=== PATIENT | female | born 1945 | race Caucasian/White ===

== ENCOUNTER 2022-05-23 12:57 | Inpatient (IN) | payer OTHER ==
--- OUTSIDE RECORDS SUMMARY | 2022-05-23 13:00 | XMS REPORT | Continuity of Care Document ---
:1945 Author Organization [facility] t Address [address] [place] [address] Dr. Cruz. [address] [place] [address] Care Team Providers Name Role Phone SYSTEM, PROVIDER NOT IN Primary Care Physician Unavailable FRIDA ZAMORA Attending Clinician Unavailable David CORDOVA, Frida Jacobs Attending Clinician [phone] Virtual, Surgeon Attending Clinician Unavailable FRIDA ZAMORA Attending Clinician Unavailable Kenyatta De Leon Attending Clinician Unavailable Paige CORDOVA, Zhen Salcedo Attending Clinician JOY KAUR Attending Clinician Unavailable Doctor Unassigned, [place] Attending Clinician Unavailable Lab, Adc Fam Pob I Attending Clinician Unavailable Patti CORDOVA, Nanette Anderson Attending Clinician FRIDA ZAMORA Admitting Clinician Unavailable Payers Payer Name Policy Type Policy Number Effective Date Expiration Date Elfego moreira [employer] [id number] 2021 00:00:00 [facility] [id number] [facility] Problems This patient has no known problems. Allergies, Adverse Reactions, Alerts Allergy Allergy Status Severity Reaction(s) Onset Inactive Treating Comm ents Source Name Type Date Date Clinician NO KNOWN Drug Active [facility] ALLERG Class ity of S [facility] NO KNOWN Allergy Active [facility] Social History Social Habit Start Date Stop Date Quantity Comments Source Exposure to 2022-05-12 2022-05-22 Not sure [facility] SARS-CoV-2 (event) 00:00:00 07:17:00 [facility] Sex Assigned At [birth year] [facility] sushilas 00:00:00 00:00:00 [facility] Smoking Status Start Date Stop Date Source Tobacco smoking consumption unknown [facility] Medications Ordered Filled Start Stop Current Ordering Indication Dosage Frequency Signature Comments Components Source Medication Medication Date Date Medication? Clinician (SIG) Name Name rivaroxaban 2021-06 Yes Take by [facility] (XARELTO) [facility]-05 [facility] 20 mg 11:21: daily with [facility] l tablet 05 dinner. Center metoprolol 2021-06 Yes 100mg QD Take [address] succinate 2-05 mg by [facility] (Toprol XL) 11:21: mouth Medic al 100 MG 24 05 daily. Center hr tablet Vital Signs Vital Name Observation Time Observation Value Comments Source HEIGHT 2022-05-22 07:20:00 165.1 cm WEIGHT 2022-05-22 07:20:00 69.854 kg HEIGHT 2022-05-22 07:20:00 165.1 cm WEIGHT 2022-05-22 07:20:00 69.854 kg HEIGHT 2022-05-22 07:20:00 165.1 cm WEIGHT 2022-05-22 07:20:00 69.854 kg Systolic blood 2022-05-22 10:36:00 123 mm[Hg] [facility] Diastolic blood 2022-05-22 10:36:00 73 mm[Hg] [facility] Heart rate 2022-05-22 10:36:00 111 /min [facility] Body temperature 2022-05-22 10:36:00 36.06 [facility] Respiratory rate 2022-05-22 10:36:00 16 /min [facility] Oxygen saturation in 2022-05-22 10:36:00 97 /min [facility] Arterial blood by Medical Ce nter Pulse oximetry Body height 2022-05-22 07:20:00 165.1 cm [facility] Body weight 2022-05-22 07:20:00 69.854 kg [facility] BMI 2022-05-22 07:20:00 25.63 kg/m2 [facility] Procedures Procedure Date / Time Performing Clinician Source Performed CT 2022-05-22 09:52:[address] [facility] BIOPSY/ASPIRATION/INJECTI [facility] Center ON CBC W/PLT COUNT & AUTO 2022-05-22 07:43:00 Bita Holt [facility] PROTHROMBIN TIME/INR 2022-05-22 07:43[facility]00 [facility] CBC W/PLT COUNT & AUTO 2022-05-22 07:43:00 [facility] (CELLAVISION MANUAL DIFF) 2022-05-22 07:43:00 [facility] AMB REF TO INTERVENTIONAL 2022-04-07 09:10:19 [facility] EXTERNAL Medicine CANCER ANTIGEN 19-9 2022-03-16 10:18:00 [facility] AMB REF TO GENETICS 2022-03-16 09:53:11 [facility] COUNSELOR (CANCER) Medicine SURGICAL PATHOLOGY 2022-03-06 21:56:00 Zhen Gibson [facility] REQUEST CANCER ANTIGEN 19-9 2022-02-24 15:42:37 [facility] ASSIGNMENT OF BENEFITS 2020-05-05 15:07:39 Doctor Unassigned, Un [facility] Plan of Care Planned Activity Planned Date Details Comments Source Future Scheduled 2022-04-20 HEPATITIS B VACCINES [facility] Test 10:25:30 (1 of 3 - 3-dose series) [code = HEPATITIS B VACCINES (1 of 3 - 3-dose series)] Future Scheduled 2022-04-20 SHINGLES VACCINES (1 [facility] Test 10:25:30 of 2) [code = SHINGLES VACCINES (1 of 2)] Future Scheduled 2022-04-20 65+ [facility]30 VACCINE (1 - PCV) [code = 65+ PNEUMOCOCCAL VACCINE (1 - PCV)] Future Scheduled 2022-04-20 COVID-19 VACCINE (2 - Me [facility] Test 10:25:30 Moderna series) [code = COVID-19 VACCINE (2 - Moderna series)] Future Scheduled 2022-04-20 INFLUENZA VACCINE Method [facility] Test 10:25:30 [code = INFLUENZA VACCINE] Future Scheduled 2022-04-20 INFLUENZA VACCINE [facility] Test 10:25:30 [code = INFLUENZA VACCINE] Future Scheduled 2022-04-20 HEPATITIS B VACCINES [facility] Test 10:25:30 (1 of 3 - 3-dose series) [code = HEPATITIS B VACCINES (1 of 3 - 3-dose series)] Future Scheduled 2022-04-20 SHINGLES VACCINES (1 Met [facility] Test 10:25:30 of 2) [code = SHINGLES VACCINES (1 of 2)] Future Scheduled 2022-04-20 65+ PNEUMOCOCCAL [facility] Hospital Test 10:25:30 VACCINE (1 - PCV) [code = 65+ PNEUMOCOCCAL VACCINE (1 - PCV)] Future Scheduled 2022-04-20 COVID-19 VACCINE (2 - Me [facility] Test 10:25:30 Moderna series) [code = COVID-19 VACCINE (2 - Moderna series)] Future Scheduled 2022-04-12 HEPATITIS B VACCINES Met [facility] Test 15:39:08 (1 of 3 - 3-dose series) [code = HEPATITIS B VACCINES (1 of 3 - 3-dose series)] Future Scheduled 2022-04-12 SHINGLES VACCINES (1 Met [facility] Test 15:39:08 of 2) [code = SHINGLES VACCINES (1 of 2)] Future Scheduled 2022-04-12 65+ PNEUMOCOCCAL [facility] Hospital Test 15:39:08 VACCINE (1 - PCV) [code = 65+ PNEUMOCOCCAL VACCINE (1 - PCV)] Future Scheduled 2022-04-12 COVID-19 VACCINE (2 - Me [facility] Test 15:39:08 Moderna series) [code = COVID-19 VACCINE (2 - Moderna series)] Future Scheduled 2022-04-12 INFLUENZA VACCINE Method [facility] Test 15:39:08 [code = INFLUENZA VACCINE] Future Scheduled 2022-03-30 INFLUENZA VACCINE Method [facility] Test 10:58:22 [code = INFLUENZA VACCINE] Future Scheduled 2022-03-30 HEPATITIS B VACCINES [facility] Test 10:58:22 (1 of 3 - 3-dose series) [code = HEPATITIS B VACCINES (1 of 3 - 3-dose series)] Future Scheduled 2022-03-30 SHINGLES VACCINES (1 Met [facility] Test 10:58:22 of 2) [code = SHINGLES VACCINES (1 of 2)] Future Scheduled 2022-03-30 65+ PNEUMOCOCCAL [facility] Hospital Test 10:58:22 VACCINE (1 - PCV) [code = 65+ PNEUMOCOCCAL VACCINE (1 - PCV)] Future Scheduled 2022-03-30 COVID-19 [facility]ACC[facility] 10:58:22 Moderna series) [code = COVID-19 VACCINE (2 - Moderna series)] Future Scheduled 2022-02-16 INFLUENZA VACCINE (#1[facility] 00:00[facility]00 [code = INFLUENZA Medical Ce nter VACCINE (#1)] Future Scheduled 2022-02-16 INFLUENZA VACCINE (#1) [facility] 00:00:00 [code = INFLUENZA Medical Ce nter VACCINE (#1)] Future Scheduled 2021-06-[address] [facility] Test 00:00:00 (12+) [code = Medical Center DEPRESSION SCREENING (12+)] Future Scheduled 2021-06-18 FALLS RISK SCREENING [facility] Test 00:00:00 [code = FALLS RISK Medical C enter SCREENING] Future Scheduled 2021-06-18 Medicare IPPE (WELCOME [facility] Test 00:00:00 TO MEDICARE) [code = Medical Center Medicare IPPE (WELCOME TO MEDICARE)] Future Scheduled 2021-06-[address] [facility] Test 00:00:00 (12+) [code = Medical Center DEPRESSION SCREENING (12+)] Future Scheduled 2021-06-18 FALLS RISK SCREENING [facility] Test 00:00:00 [code = FALLS RISK Medical C enter SCREENING] Future Scheduled 2021-06-18 Medicare IPPE (WELCOME [facility] Test 00:00:00 TO MEDICARE) [code = Medical Center Medicare IPPE (WELCOME TO MEDICARE)] Future Scheduled 2009 PNEUMOCOCCAL 65+ [facility] Test 00:00:00 (1 - PCV) [code = Medical Ce nter PNEUMOCOCCAL 65+ YRS (1 - PCV)] Future Scheduled 2009 PNEUMOCOCCAL 65+ Y[facility] Test 00:00:00 (1 - PCV) [code = Medical Ce nter PNEUMOCOCCAL 65+ YRS (1 - PCV)] Future Scheduled 1994 SHINGLES VACCINES ([address] [facility] Test 00:00:00 of 2) [code = SHINGLES Medic al Center VACCINES (1 of 2)] Future Scheduled 1994 SHINGLES VACCINES ([address] [facility] Test 00:00:00 of 2) [code = SHINGLES Medic al Center VACCINES (1 of 2)] Future Scheduled 1963 DTAP/TDAP/TD VACCINES [facility] Test 00:00:00 (1 - Tdap) [code = Medical C enter DTAP/TDAP/TD VACCINES (1 - Tdap)] Future Scheduled 1963 DTAP/TDAP/TD VACCINES [facility] Test 00:00:00 (1 - Tdap) [code = Medical C enter DTAP/TDAP/TD VACCINES (1 - Tdap)] Future Scheduled 1962 HEPATITIS C SCREENING [facility] 00:00:00 [code = HEPATITIS C Medical Center SCREENING] Future Scheduled 1962 HEPATITIS C SCREENING [facility] 00:00:00 [code = HEPATITIS C Medical Center SCREENING] Future Scheduled [address] [facility] Test 00:00:00 Counseling and Medical Cente r Screening (12+) [code = Tobacco Cessation Counseling and Screening (12+)] Future Scheduled 1945 COVID-19 VACCINE (#1) [facility] Test 00:00:00 [code = COVID-[address] VACCINE (#1)] Future Scheduled 1945 COVID-19 VACCINE (#1) [facility] 00:00:00 [code = COVID-[address] VACCINE (#1)] Future Scheduled 1945 DXA SCAN [code = DXA [facility] Test 00:00:00 SCAN] Medical Center Future Scheduled 1944 DXA SCAN [code = DXA [facility] Test 00:00:00 SCAN] Medical Center Encounters Start End Encounter Admission Attending Care Care Encounter Source Date/Time Date/Time Type Type Clinicians Facility Department ID 2022-05-22 2022-05-22 Outpatient YOLA ZAMORA [facility] Surgery [id number] [facility] 06:07:00 11:19:00 FRIDA 2022-05-22 2022-05-22 [facility] David, [facility] [id number] 06:07:00 11:19:00 Encounter [facility] 2022-05-22 2022-05-22 Outpatient YOLA ZAMORA [facility] SLE [id number] [facility] 09:01:11 09:01:11 [facility] 2022-05-22 2022-05-[address] [facility] [id number] 08:00:00 08:00:00 Encounter [facility] 2022-05-22 2022-05-22 Surgery Virtual, [facility] [id number] 07:30:00 08:00:00 Surgeon [facility] 2022-05-22 2022-05-22 Travel [facility] [id number] [facility] 00:[facility] 00[facility]00[facility]00 [facility] 2022-05-18 2022-05-18 Outpatient YOLA ZAMORA [facility] SLE [id number] SLE 00:00:00 00:00:00 [facility] 2022-04-12 2022-04-12 Outside [facility], [facility] [id number] 00:00:00 00:00:00 Orders [facility] 2022-04-12 2022-04-12 Outside [facility] [id number] 00:00:00 00:00:00 Orders [facility] 2022-04-06 2022-04-06 Outpatient DAVID [facility] [id number] [facility] 11:11:32 12:07:32 FRIDA garland of Medicin e 2022-04-27 2022-03-30 [facility] [id number] SLE 18:24:55 11:57:00 [facility] 2022-03-30 2022-03-[address] [facility] [id number] 08:00:00 11:57:00 Encounter [facility] 2022-03-30 2022-03-30 Hospital David, [facility] [id number] 07:00:00 07:00:00 Encounter [facility] 2022-03-16 2022-03-16 Outpatient ALETHEAYAYO [facility] [id number] [facility] 08:09:28 09:35:47 FRIDA Krause e of Medicin e 2022-03-16 2022-03-16 Orders [facility] [id number] 00:00:00 00:00:00 Only [facility] 2022-03-16 2022-03-16 Orders [facility] [id number] [facility] 00:00:00 00:00:00 Only [facility] 2022-03-06 2022-03-06 Lab Paige, 1.2.840.1 [id number] Methodi 16:50:00 16:55:[address] 3.430.2.7 Hospit a .3.608436 l .8 2022-03-06 2022-03-06 Lab Paige, 1.2.840.1 [id number] Methodi 16:50:00 16:55:[address] Z[address] 3.430.2.7 Hospit a .3.895917 l .8 2022-02-24 2022-02-24 Outpatient NATASHA [facility] [id number] [facility] 14:15:21 15:35:35 JOY garland of Medicin e 2020-05-10 2020-05-10 Letter Doctor FORTE 1.2.840.114 [id number] Univers 00:00:00 00:00:00 (Out) Unassigned, JAMES 350.1.13.10 ity of [place] [facility] 4.2.7.2.686 Franky as [phone] [place] [id number] [place] 2020-05-05 2020-05-05 Laboratory Lab, Adc Fam Pob I [facility] 1.2. 840.114 [id number] Univers 09:06:24 09:26:24 Only Patti, [facility] 350.1.13.1 0 ity of [place] 4.2.7.2.686 Franky as Professio [phone] [place] [facility] [address] 2020-05-05 2020-05-05 Outpatient R [facility] [id number] Univers 09:20:00 09:20:[address] [facility] 2020-05-05 2020-05-05 Orders Doctor REANNA 1.2.840.114 [id number] Univers 00:00:00 00:00:00 Only Unassigned, JAMES 350.1.13.10 ity of [place] [facility] 4.2.7.2.686 Franky as [phone] [address] Results Test Description Test Time Test Comments Results Result Comments Source CBC W/PLT COUNT & AUTO DIFFERENTIAL 2022-05-22 11:34:24 Test Item Value Reference Range Interpretation Comme nts WHITE BLOOD CELL COUNT (BEAKER) (test code = 775) 9.5 K/ L 3.5- 10.5 RED BLOOD CELL COUNT (BEAKER) (test code = 761) 4.26 M/ L 3.93-5 .22 HEMOGLOBIN (BEAKER) (test code = 410) 13.2 GM/DL 11.2-15.7 HEMATOCRIT (BEAKER) (test code = 411) 39.7 % 34.1-44.9 MEAN CORPUSCULAR VOLUME (BEAKER) (test code = 753) 93 fL 79- 95 MEAN CORPUSCULAR HEMOGLOBIN (BEAKER) (test code = 751) 31.0 pg 25.6-32.2 MEAN CORPUSCULAR HEMOGLOBIN CONC (BEAKER) (test code = 752) 33.2 GM/DL 32.2-35.5 RED CELL DISTRIBUTION WIDTH (BEAKER) (test code = 412) 18.3 % 11.7-14.4 H PLATELET COUNT (BEAKER) (test code = 756) 211 K/CU MM 150-450 MEAN PLATELET VOLUME (BEAKER) (test code = 754) 12.8 fL 9.4-12 .3 H NUCLEATED RED BLOOD CELLS (BEAKER) (test code = 413) 0 /100 WBC 0 -0 (CELLAVISION MANUAL DIFF)2022-05-22 11:34:24 Test Item Value Reference Range Interpretation Comments NEUTROPHILS - REL 80 % (CELLAVISION)(BEAKER) (test code = 2816) LYMPHOCYTES - REL 8 % (CELLAVISION)(BEAKER) (test code = 2817) MONOCYTES - REL 7 % (CELLAVISION)(BEAKER) (test code = 2818) EOSINOPHILS - REL 1 % (CELLAVISION)(BEAKER) (test code = 2819) BASOPHILS - REL 1 % (CELLAVISION)(BEAKER) (test code = 2820) BANDS - REL (CELLAVISION)(BEAKER) 1 % 0-10 (test code = 2826) ATYPICAL LYMPHOCYTES - REL 2 % 0-0 H (CELLAVISION)(BEAKER) (test code = 2829) NEUTROPHILS - ABS 7.60 K/ul 1.56-6.13 H (CELLAVISION)(BEAKER) (test code = 2830) LYMPHOCYTES - ABS 0.76 K/ul 1.18-3.74 L (CELLAVISION)(BEAKER) (test code = 2831) MONOCYTES - ABS 0.67 K/uL 0.24-0.36 H (CELLAVISION)(BEAKER) (test code = 2832) EOSINOPHILS - ABS 0.10 K/uL 0.04-0.36 (CELLAVISION)(BEAKER) (test code = 2834) BASOPHILS - ABS 0.10 K/uL 0.01-0.08 H (CELLAVISION)(BEAKER) (test code = 2835) BANDS - ABS (CELLAVISION)(BEAKER) 0.10 K/uL 0.00-0.80 (test code = 2840) ATYPICAL LYMPHOCYTES - ABS 0.19 K/uL 0.00-0.00 H (CELLAVISION)(BEAKER) (test code = 2858) TOTAL COUNTED (BEAKER) (test code = 100 1351) WBC MORPHOLOGY (BEAKER) (test code Normal = 487) PLT MORPHOLOGY (BEAKER) (test code Normal = 486) ANISOCYTOSIS (BEAKER) (test code = 1+ few 961) MACROCYTES (BEAKER) (test code = 1+ few 964) POIKILOCYTES (BEAKER) (test code = 1+ few 966) ARTIFACT (CELLAVISION)(BEAKER) Present (test code = 3432) PLATELET CONCENTRATION Adequate (CELLAVISION)(BEAKER) (test code = 3438) Sales Account Manager ID - Carolina OverholtUser comments: Slide comments:CT, BIOPSY, BONE 2022-05-22 10:53:00APPROVED PER DR. Smith for Exam:->MALIGNANT NEOPLASM OF BODY OF PANCREAS [facility] : 1945 Sex: FFINAL REPORT CT guided core biopsy of lesion in T12 vertebral body History: MALIGNANT NEOPLASM OF BODY OF PANCREAS Modality: CT, CT fluoroscopy Anesthesia: 1% lidocaine local Approach: Posterior percutaneous Consent: The risks, benefits, and alternatives to the procedure were discussedwith the patient. The patient expressed understanding and informed written consent was obtained. Time out: A pre-procedure time out was performed in order to confirm the appropriate site of the procedure. Sedation: Moderate sedation was administered, including a total of 1.0 mg of Versed and 75 mcg offentanyl. Continuous monitoring was performed by the operating physician and radiology nursing throughout the procedure. Duration of conscious sedation: 25 minutes. Technique: This exam was performed according to our departmental dose optimization program which includes automated exposure control, adjustment of the mA and/or kV according to patient's size and/or use of iterative reconstructive technique. The patient was placed prone in the CT scanner. A hepatic lesion in the T12 vertebral body was localized using CT and CT fluoroscopy. After the usual sterile preparation and application of local ane sthesia, a Bonopty needle was advanced into T12 using CT guidance. Two passes were made, yielding two cores Disposition: The patient tolerated the procedure well, without immediate complications. The patient left CT in stable condition. Impression: 1. Technically successful CT guided core biopsy of lesion in T12 vertebral body. Signed: Bita Holt Verified Date/Time: 05/22/2022 10:53:54 ReadingLocation: [facility] B1 C013X Ortho Consult Reading Room PROTHROMBIN TIME/[id number] 08:05:01 Test Item Value Reference Range Interpretation Comments PROTIME (BEAKER) 15.9 seconds 11.9-14.2 H (test code = 759) INR (BEAKER) (test 1.30 See_Comment [Automat ed message] code = 370) The system [employer] generated this result transmitted ref erence range: <=5.90. The reference range was not used to int erpret this result as normal/abnormal . RECOMMENDED COUMADIN/WARFARIN INR THERAPY RANGESSTANDARD DOSE: 2.0 - 3.0 Includes: PROPHYLAXIS for venous thrombosis, systemic embolization; TREATMENT for venous thrombosis and/or pulmonary embolus.HIGH RISK: Target INR is 2.5-3.5 for patients with mechanical heart valves.MRI ABDOMEN /[id number] 13:15:34 [facility] JUSTINE SHER[facility] : 1945 Sex: FCLINICAL INDIC ATION: C25.1, Malignant neoplasm of body of pancreas. R16.0, Hepatomegaly, not elsewhere classified.MODALITY: [employer] 3T MRITECHNIQUE: Parallel imaging is accomplished using T2, diffusion, in-phase, [id number], and breath-holding sequences. IV contrast (Dotarem), 14 ml is administered. Dynamic post-contrast fat saturation breath-hold imaging is then performed.IMPRESSION:1. 4.4 X 3.1 X 3.3 cm heterogeneous and mildly hypo- enhancing pancreatic body/tail mass, likely representing the patient's known pancreatic carcinoma. Vascular involvement is noted, detailed below.2. Enhancing, 2.2 cm lesion at T12 corresponds to the lesion described on CT chest performed the same day. This is suspicious formetastatic disease and can be correlated with nuclear medicine bone scan.3. Areas of heterogeneous hepatic enhancement with suggestion of small hepatic hemangiomas, described below. Close follow-up forstability is advised.FINDINGS:COMPARISON: None.Refer to report from CT chest performed the same datefor findings above the diaphragm.The liver is normal in size and contour. Scattered, sub-centimeter hepatic cysts are noted. A 4 mm hyperintense T2 focus in the posterior inferior right hepatic lobe onseries 6, image 17 demonstrates progressive enhancement, filling in on the delayed series without evidence of delayed washout. This may represent a small hepatic hemangioma. Additional 1.4 X 1.1 cm lesion in the posterior right hepatic lobe is best visualized on the diffusion weighted series, series 9, image 8. This demonstrates slightly decreased signal on the ADC sequence and mildly hyperintense [id number]. On the postcontrast series, this has mild progressive enhancement, filling in on the delayedseries without evidence of washout. This may also represent a hepatic hemangioma. There are wedge-shaped areas of enhancement within the periphery of the liver, best visualized on the early arterial phase of postcontrast imaging. These demonstrate no evidence of significant washout or restricted diffusion and may represent areas of transient hepatic attenuation difference (CARRIE). No evidence of biliary dilatation. Gallbladder appears unremarkable. Spleen is normal in size and contour. The stomach and duodenum appear unremarkable.Ill-defined, mildly hypo-enhancing and heterogeneous T2 mass is noted in the pancreatic body/tail. This measures 4.4 X 3.1 X 3.3 cm. The splenic artery is not well visualized and appears to be involved by the superior aspect of this mass. The splenic vein is also not clear ly visualized. The proximal superior mesenteric vein is surrounded by this mass along the anterolateral aspect, approximately 180 degrees. This is best visualized on series 6, image 20.Adrenal glands are morphologically normal. A simple left anterior mid pole renal cyst measures 1.9 cm. Hyperintense T1 foci are noted within the kidneys bilaterally. Larger of these measure 1.1 cm in the left posteriormid pole and 0.8 cm in the posterior right lower renal pole. These demonstrate mildly hypointense [id number] and no definite internal enhancement, suggesting hemorrhagic cysts. No hydronephrosis. No pathological retrocrural nor retroperitoneal lymph nodes are seen. No retroperitoneal mass is present. Ab dominal wall is intact. No evidence of ascites.No evidence of bowel mass, mural thickening or pericolic edema.Hypointense T2 lesion is noted at the superior endplate of T12, corresponding to the slightly sclerotic lesion noted on CT performed the same date. This measures 2.2 X 2.0 cm and demonstrates avid enhancement.CT THORAX [id number] 13:06:04 [facility] SHERMAN : 1945 Sex: FCLINICAL INDIC ATION: C25.1, Malignant neoplasm of body of pancreas.MODALITY: Closelyi Thar Geothermala View [address] (Iterative dose reduction technique is used).TECHNIQUE: Contrast enhanced (90 cc optiray 350) helical scans through the chest were performed.Computed Tomography Dose Index (CDTI): 5.6 mGy.IMPRESSIO N:1. Sub-centimeter left pulmonary nodules as described below; metastatic disease is not excluded.2.Mildly sclerotic osseous lesion at T12, suspicious for metastatic disease. Correlation with nuclear medicine bone scan is suggested.3. Emphysema.4. Coronary artery calcification.FINDINGS:COMPARISON: None.Examination is mildly limited secondary to patient motion artifact. Centrilobular emphysematous changes are noted bilaterally, predominating in the upper lobes. A few scattered thin-wall cysts/bulla are also demonstrated. Two left pulmonary nodules are present: 0.8 X 0.4 cm in the left lower lobe onimage 53 and 0.5 cm in the left upper lobe anteriorly on image 49. There is no pleural effusion.There is no pathologic mediastinal or hilar lymphadenopathy. Thoracic aortic and coronary artery calcification is present. No pericardial thickening or effusion.No pathologic axillary or supraclavicular lymphadenopathy.Sub- centimeter hypodensities in the right and left thyroid lobes are nonspecific.The chest wall is intact. Mildly sclerotic lesion is noted at T12, measuring 1.5 X 1.4 cm.Refer to report from MRI of the abdomen performed the same day for findings beneath the diaphragm.[facility] 436: [id number] (For official use only.)Surgical pathology [id number] 20:10:41 Test Item Value Reference Range Interpretation Comments Case number (test code = [id number]) Surgical pathology See link below for report (test code = PDF Lab Report 2255) Result status (test code This is Final Report = [id number]) [address] [id number] 20:10:41 Test Item Value Reference Range Interpretation Comments Case number (test code = [id number]) Surgical pathology See link below for report (test code = PDF Lab Report 2255) Result status (test code This is Final Report = [id number]) [address] [id number] 20:10:41 Test Item Value Reference Range Interpretation Comments Case number (test code = [id number]) Surgical pathology See link below for report (test code = PDF Lab Report 2255) Result status (test code This is Final Report = [id number]) [address] [id number] 20:10:41 Test Item Value Reference Range Interpretation Comments Case number (test code = [id number]) Surgical pathology See link below for report (test code = PDF Lab Report 2255) Result status (test code This is Final Report = [id number]) for [address]
[2022-05-23 13:57] LABS: Absolute Lymphocytes (CBC) 0.8 K/uL (0.7-4.9); Hematocrit 39.7 % (36.0-45.0); Lymphocytes % 10.7 % (15.3-44.8); MCV 93.8 fL (80-100); MPV 11.3 fL (7.6-11.3); RBC Red Blood Cell Count 4.24 M/uL (3.86-4.86)
[2022-05-23] MEDS ORDERED: NA CHLORIDE 0.9% 500 ML ONE (14:14)
[2022-05-23 14:19] LABS: Albumin 3.1 g/dL (3.4-5.0); Bilirubin Direct 0.7 mg/dL (0-0.2); Potassium 3.4 mmol/L (3.5-5.1); Protein, Total 6.3 g/dL (6.4-8.2); Troponin High Sensitivity 24.2 pg/mL (<58.9)
--- NOTE | 2022-05-23 14:56 | RAD REPORT ---
EXAM DESCRIPTION: CT - Chest For Pe Angio - 05/23/2022 2:44 pm CLINICAL HISTORY: sob COMPARISON: None. TECHNIQUE: Dynamically enhanced axial 3 mm thick images of the chest were obtained during administra tion of <100> mL Isovue 370 IV contrast. Coronal and oblique reconstruction images were generated and reviewed. Exam utilizes a protocol for optimal evaluation of pulmonary arterial tree. Maximum intensity projections 3D imaging was utilized All CT scans are performed using dose optimization technique as appropriate and may include automated exposure control or mA/KV adjustment according to patient size. FINDINGS: Mild right lower lobe pulmonary emboli A thoracic aortic aneurysm is not noted. Small bilateral pleural effusions. A pericardial effusion is not seen. Mild bilateral interstitial lung opacities IMPRESSION: Mild right lower lobe pulmonary emboli Mild CHF
--- NOTE | 2022-05-23 15:01 | RAD REPORT ---
EXAM DESCRIPTION: Ruben Single View05/23/2022 1:48 pm CLINICAL HISTORY: Shortness of breath COMPARISON: 2019 FINDINGS: Mild bilateral pulmonary opacities. Small pleural effusions. Cardiomegaly. Central venous catheter in place IMPRESSION: Mild CHF
--- NOTE | 2022-05-23 15:28 | EDPHYS ---
Physician Documentation [facility] Name: Nile Michele Age: 76 yrs Sex: Female : 1945 Arrival Date: 05/23/2022 Time: 13:00 Bed 5 Private MD: Dawson Diane T ED Physician Bulmaro Suarez HPI: 05/23 18:48 This 76 yrs old Female presents to ER via Ambulatory with complaints of Breathing kdr Difficulty. 18:48 The patient has shortness of breath at rest, with light activity. Onset: The kdr symptoms/episode began/occurred suddenly. Duration: The symptoms are continuous, Not getting any better with time and treatments. The patient's shortness of breath is aggravated by exertion, light activity, is alleviated by nothing. Associated signs and symptoms: Pertinent positives: This patient does not have any pertinent positive signs or symptoms associated with shortness of breath. non-productive cough, Pertinent negatives: non-productive cough, productive cough, diaphoresis, fever, nausea, numbness in extremities, visual changes. Severity of symptoms: At their worst the symptoms were very mild mild in the emergency department the symptoms are unchanged. The patient has not experienced similar symptoms in the past. The patient has not recently seen a physician. Patient became acutely short of breath over the weekend. At that time she was on a cruise ship. She has a history of pancreatic cancer diagnosed in February of this year. She has had 1 chemo treatment. She did not tolerate that well. While on the cruise ship, she was evaluated for possible COVID. Her test was negative at that time on Sunday. She did get a chest x-ray and was told she had fluid on her lungs and was given a diuretic. She also used CPAP between then and now has not been getting any better.. Historical: - Allergies: 13:06 No Known Allergies; jh5 - PMHx: 13:06 pancreatic ca; a fib; Hypertensive disorder; 5 - Immunization history:: Adult Immunizations up to date. - Social history:: Smoking status: Patient reports the use of cigarette tobacco products, smokes one-half pack cigarettes per day. ROS: 18:48 Constitutional: Negative for fever, chills, and weight loss, Eyes: Negative for injury, kdr pain, redness, and discharge, Neck: Negative for injury, pain, and swelling, Cardiovascular: Negative for chest pain, palpitations, and edema, Abdomen/GI: Negative for abdominal pain, nausea, vomiting, diarrhea, and constipation, Back: Negative for injury and pain, : Negative for injury, bleeding, discharge, and swelling, MS/Extremity: Negative for injury and deformity, Skin: Negative for injury, rash, and discoloration, Neuro: Negative for headache, weakness, numbness, tingling, and seizure activity. Psych: Negative for depression, anxiety, suicide ideation, homicidal ideation, and hallucinations, Allergy/Immunology: Negative for hives, rash, and allergies, Endocrine: Negative for neck swelling, polydipsia, polyuria, polyphagia, and marked weight changes, Hematologic/Lymphatic: Negative for swollen nodes, abnormal bleeding, and unusual bruising. 18:48 Respiratory: Positive for dyspnea on exertion, shortness of breath, Negative for orthopnea, pleurisy, sputum production. Exam: 18:48 Constitutional: This is a well developed, well nourished patient who is awake, alert, kdr and in no acute distress. Head/Face: Normocephalic, atraumatic. Eyes: Pupils equal round and reactive to light, extra-ocular motions intact. Lids and lashes normal. Conjunctiva and sclera are non-icteric and not injected. Cornea within normal limits. Periorbital areas with no swelling, redness, or edema. Neck: Trachea midline, no thyromegaly or masses palpated, and no cervical lymphadenopathy. Supple, full range of motion without nuchal rigidity, or vertebral point tenderness. No Meningismus. 18:48 Cardiovascular: Rate: tachycardic, Rhythm: irregularly irregular, Pulses: no pulse deficits are appreciated, Edema: is not appreciated. Vital Signs: 13:03 BP 123 / 93; Pulse 142; Resp 26; Temp 97.3; Pulse Ox 98% on R/A; Weight 68.95 kg; jh5 Height 5 ft. 5 in. (165.10 cm); Pain 0/10; 14:05 BP 139 / 102; Pulse 122; Resp 19; Pulse Ox 96% ; bp 15:45 BP 153 / 98; Pulse 134; Resp 24; Pulse Ox 98% on R/A; em6 15:51 BP 136 / 102; Pulse 128; Resp 19; Pulse Ox 100% on R/A; em6 15:59 BP 130 / 107; Pulse 119; Resp 19; Pulse Ox 96% on R/A; em6 16:30 BP 140 / 95; Pulse 115; Resp 24; Pulse Ox 97% ; bp 17:00 BP 136 / 88; Pulse 117; Resp 23; Pulse Ox 96% ; bp 18:48 BP 135 / 100; Pulse 120; Resp 22; Pulse Ox 96% on R/A; db 13:03 Body Mass Index 25.29 (68.95 kg, 165.10 cm) [facility] MDM: 15:28 Patient medically screened. kdr 18:48 Data reviewed: vital signs, nurses notes, lab test result(s), radiologic studies. kdr Counseling: I had a detailed discussion with the patient and/or guardian regarding: the historical points, exam findings, and any diagnostic results supporting the discharge/admit diagnosis, lab results, radiology results, the need for further work-up and treatment in the hospital. 05/23 13:14 Order name: Basic Metabolic Panel; Complete Time: 14:50 kdr 05/23 13:14 Order name: CBC with Diff; Complete Time: 14:09 kdr 05/23 13:14 Order name: D-Dimer; Complete Time: 14:50 kdr 05/23 13:14 Order name: LFT's; Complete Time: 14:50 kdr 05/23 13:14 Order name: NT PRO-BNP; Complete Time: 14:50 kdr 05/23 13:14 Order name: Troponin HS; Complete Time: 14:50 kdr 05/23 13:14 Order name: XRAY Chest (1 view); Complete Time: 15:05 kdr 05/23 13:14 Order name: EKG; Complete Time: 13:15 kdr 05/23 14:10 Order name: CT Chest For PE Angio; Complete Time: 15:05 kdr 05/23 15:40 Order name: SARS RAPID; Complete Time: 17:02 ss 05/23 16:17 Order name: Heart Healthy EDMS 05/23 13:14 Order name: Cardiac monitoring; Complete Time: 13:35 kdr 05/23 13:14 Order name: EKG - Nurse/Tech; Complete Time: 13:35 kdr 05/23 13:14 Order name: IV Saline Lock; Complete Time: 13:42 kdr 05/23 13:14 Order name: Labs collected and sent; Complete Time: 13:42 kdr 05/23 13:14 Order name: O2 Per Protocol; Complete Time: 13:35 kdr 05/23 13:14 Order name: O2 Sat Monitoring; Complete Time: 13:35 kdr Administered Medications: 14:14 Drug: NS 0.9% 500 ml Route: IV; Rate: bolus; Site: right antecubital; bp 15:33 Follow up: Response: No adverse reaction; IV Status: Completed infusion; IV Intake: em6 500ml 15:09 Drug: Lopressor (metoprolol) 5 mg Route: IVP; Site: right antecubital; em6 15:45 Drug: Lopressor (metoprolol) 5 mg Route: IVP; Site: right antecubital; em6 15:46 Drug: Lovenox (enoxaparin) 1 mg/kg Route: Sub-Q; Site: abdomen; em6 17:20 Follow up: Response: No adverse reaction bp 15:51 Drug: Lopressor (metoprolol) 5 mg Route: IVP; Site: right antecubital; em6 17:20 Follow up: Response: No adverse reaction bp Disposition Summary: 05/23/22 15:28 Hospitalization Ordered Hospitalization Status: Observation kdr Provider: Joe Michelle Location: Telemetry/MedSurg (Inpatient) kdr Condition: Fair kdr Problem: new kdr Symptoms: have improved kdr Bed/Room Type: Standard kdr Room Assignment: 205(05/23/22 17:22) bd Diagnosis - Shortness of breath kdr - Other pulmonary embolism without acute cor pulmonale kdr - Pancreatic cancer kdr Forms: - Medication Reconciliation Form kdr - SBAR form kdr Signatures: Dispatcher [employer] EDMS Enma Dunlap bd Bulmaro Suarez MD MD kdr Ron Meneses RN RN bp Pia Mendoza RN RN jh5 Mayuri Hassan RN RN em6 Corrections: (The following items were deleted from the chart) : 15:28 kdr bd
--- NOTE | 2022-05-23 15:28 | ER ---
Nurse's Notes [facility] Name: Nile Michele Age: 76 yrs Sex: Female : 1945 Arrival Date: 05/23/2022 Time: 13:00 Bed 5 Private MD: Dawson Diane T Diagnosis: Shortness of breath;Other pulmonary embolism without acute cor pulmonale;Pancreatic cancer Presentation: 05/23 13:03 Chief complaint: Patient states: I was on a cruise and was SOB and had a chest xray and [facility] told her she has fluid on her lungs, was ngative for covid saturady. gave her some meds and CPAP and just not getting better. Coronavirus screen: Vaccine status: Patient reports receiving the 2nd dose of the covid vaccine. Client indicates they have traveled out of the [place] in the last 14 days. Client traveled to: [facility]. Ebola Screen: Patient negative for fever greater than or equal to 101.5 degrees Fahrenheit, and additional compatible Ebola Virus Disease symptoms Patient denies exposure to infectious person. Patient denies travel to an Ebola-affected area in the 21 days before illness onset. Initial Sepsis Screen: Does the patient meet any 2 criteria? No. Patient's initial sepsis screen is negative. Does the patient have a suspected source of infection? No. Patient's initial sepsis screen is negative. Risk Assessment: Do you want to hurt yourself or someone else? Patient reports no desire to harm self or others. Onset of symptoms was April 2022. 13:03 Method Of Arrival: Ambulatory [facility] 13:03 Acuity: JERMAINE 3 [facility] 13:10 Chief complaint: Patient states: was given ceftriaxone IV on ship and Azithromycin PO [facility] with a script for the Azithromycin for 6 days. Triage Assessment: 13:06 General: Appears uncomfortable, slender, well groomed, well developed, Behavior is [facility] calm, cooperative, appropriate for age. Pain: Denies pain. Respiratory: Reports shortness of breath cough that is labored breathing Onset: The symptoms/episode began/occurred gradually, the patient has mild shortness of breath. Historical: - Allergies: 13:06 No Known Allergies; [facility] - PMHx: 13:06 pancreatic ca; a fib; Hypertensive disorder; [facility] - Immunization history:: Adult Immunizations up to date. - Social history:: Smoking status: Patient reports the use of cigarette tobacco products, smokes one-half pack cigarettes per day. Screenin:06 Abuse screen: Denies threats or abuse. Denies injuries from another. Nutritional bp screening: No deficits noted. Tuberculosis screening: No symptoms or risk factors identified. Fall Risk None identified. Assessment: 13:06 General: SEE TRIAGE NOTE. bp 14:05 Reassessment: No changes from previously documented assessment. Cardiovascular: Rhythm bp is atrial fibrillation with rapid ventricular response. Respiratory: Airway is patent Respiratory effort is even, unlabored, Breath sounds are coarse bilaterally. 16:00 Reassessment: ADMIT INITIATED. bp Vital Signs: 13:03 BP 123 / 93; Pulse 142; Resp 26; Temp 97.3; Pulse Ox 98% on R/A; Weight 68.95 kg; [facility] Height 5 ft. 5 in. (165.10 cm); Pain 0/10; 14:05 BP 139 / 102; Pulse 122; Resp 19; Pulse Ox 96% ; bp 15:45 BP 153 / 98; Pulse 134; Resp 24; Pulse Ox 98% on R/A; em6 15:51 BP 136 / 102; Pulse 128; Resp 19; Pulse Ox 100% on R/A; em6 15:59 BP 130 / 107; Pulse 119; Resp 19; Pulse Ox 96% on R/A; em6 16:30 BP 140 / 95; Pulse 115; Resp 24; Pulse Ox 97% ; bp 17:00 BP 136 / 88; Pulse 117; Resp 23; Pulse Ox 96% ; bp 18:48 BP 135 / 100; Pulse 120; Resp 22; Pulse Ox 96% on R/A; db 13:03 Body Mass Index 25.29 (68.95 kg, 165.10 cm) [facility] ED Course: 13:00 Patient arrived in ED. rg4 13:01 Dawson Diane MD is Private Physician. rg4 13:01 Bulmaro Suarez MD is Attending Physician. kdr 13:06 Triage completed. [facility] 13:06 Arm band placed on left wrist. [facility] 13:06 Patient has correct armband on for positive identification. Bed in low position. Call bp light in reach. Side rails up X2. Adult w/ patient. 13:12 Ron Meneses, RN is Primary Nurse. bp 13:44 Inserted saline lock: 20 gauge in right antecubital area, using aseptic technique. bp Blood collected. 13:50 XRAY Chest (1 view) In Process Unspecified. EDMS 14:46 CT Chest For PE Angio In Process Unspecified. EDMS 15:26 Joe Michelle MD is Hospitalizing Provider. kdr 18:30 Report given to KITA Yoder. db 18:50 No provider procedures requiring assistance completed. Patient admitted, IV remains in db place. Administered Medications: 14:14 Drug: NS 0.9% 500 ml Route: IV; Rate: bolus; Site: right antecubital; bp 15:33 Follow up: Response: No adverse reaction; IV Status: Completed infusion; IV Intake: em6 500ml 15:09 Drug: Lopressor (metoprolol) 5 mg Route: IVP; Site: right antecubital; em6 15:45 Drug: Lopressor (metoprolol) 5 mg Route: IVP; Site: right antecubital; em6 15:46 Drug: Lovenox (enoxaparin) 1 mg/kg Route: Sub-Q; Site: abdomen; em6 17:20 Follow up: Response: No adverse reaction bp 15:51 Drug: Lopressor (metoprolol) 5 mg Route: IVP; Site: right antecubital; em6 17:20 Follow up: Response: No adverse reaction bp Medication: 18:50 VIS not applicable for this client. db Intake: 15:33 IV: 500ml; Total: 500ml. em6 Outcome: 15:28 Decision to Hospitalize by Provider. kdr 18:49 Admitted to Tele accompanied by nurse, via stretcher, on monitor, Report called to calderon Yoder RN 2nd floor RN 18:49 Condition: stable 18:49 Instructed on the need for admit. 18:51 Patient left the ED. db Signatures: Dispatcher [employer] EDMS Bulmaro Suarez MD MD kdr Macrina Ann rg4 Ron Meneses RN RN bp Pia Mendoza RN RN 5 Mayuri Hassan RN RN em6 Doreen Reardon RN RN db
[2022-05-23] MEDS ORDERED: ENOXAPARIN 80 MG/0.8 ML SQ ONE (15:41)
[2022-05-23] MEDS ORDERED: METOPROLOL TARTRATE 5 MG/5 ML INJ IV ONE ×4 (15:41→16:05)
[2022-05-23] MEDS ORDERED: ACETAMINOPHEN 325 MG TABLET PO PRN (16:14)
[2022-05-23] MEDS ORDERED: HYDROCODONE/APAP 5/325 MG TAB PO PRN (16:14)
[2022-05-23 16:32] LABS: SARS-CoV-2 Antigen Rapid Res Negative (Negative)
[2022-05-23] MEDS ORDERED: ONDANSETRON 4 MG/2 ML VIAL IV PRN (17:06)
[2022-05-23] MEDS ORDERED: ALBUTEROL 2.5 MG/3 ML NEB SOL NEB PRN (17:06)
[2022-05-23] MEDS ORDERED: LABETALOL 20 MG/4ML SYRINGE IV PRN (17:09)
--- NOTE | 2022-05-23 17:13 | P.HP ---
Certification for Inpatient Patient admitted to: Observation With expected LOS: <2 Midnights Patient will require the following post-hospital care: None Practitioner: I am a practitioner with admitting privileges, knowledge of patient current condition, hospital course, and medical plan of care. Services: Services provided to patient in accordance with Admission requirements found in Title 42 Section 412.3 of the Code of Federal Regulations <Nell Inman - Last Filed: 05/23/22 18:42> Patient History Date of Service: 05/23/22 Reason for admission: Shortness of breath History of Present Illness: Patient is a 76-year-old female with a past medical history significant for pancreatic cancer, A. fib, hypertension, nicotine dependence who presents with complaint of shortness of breath that has been ongoing for a while. Patient is a poor historian and unable to provide accurate history. Patient reported that she went on a cruise last week. Patient reports compliance with her medications. Patient reported that her last chemotherapy was on April 19, 2022. Patient denies any other signs and symptoms. Shortness of breath is aggravated with exertion and relieved by nothing. Patient decided to present to the hospital due to worsening symptoms. - Past Medical/Surgical History -: Pancreatic cancer -: Atrial fibrillation -: Hypertension -: Nicotine dependence Past Surgical History: Reviewed- Non-Contributory - Family History Family History: Reviewed- Non-Contributory - Social History Smoking Status: Current every day smoker Counseled patient to stop smoking for: less than 10 minutes Smoking therapy provided: Yes Patient receptive to therapy: Yes Alcohol use: Yes CD- Drugs: No Caffeine use: Yes Place of Residence: Home <Nell Inman Kisha - Last Filed: 05/23/22 18:42> Date of Service: 05/24/22 <Joe Michelle - Last Filed: 05/24/22 07:08> Allergies No Known Allergies Allergy (Verified 05/18/22 15:34) Review of Systems General: Other Eyes: Unremarkable ENT: Unremarkable Respiratory: Shortness of Breath, SOB with Excertion Cardiovascular: Unremarkable Gastrointestinal: Unremarkable Genitourinary: Unremarkable Musculoskeletal: Unremarkable Integumentary: Unremarkable Neurological: Unremarkable Lymphatics: Unremarkable <Nell Inman - Last Filed: 05/23/22 18:42> Physical Examination - Physical Exam General: Alert, Oriented x3, Oriented x1, Mild distress HEENT: Atraumatic, PERRLA, Mucous membr. moist/pink, EOMI, Sclerae nonicteric Neck: Supple, 2+ carotid pulse no bruit, No LAD, Without JVD or thyroid abnormality Respiratory: Diminished Cardiovascular: No edema, Irregular heart rate/rhythm Capillary refill: <2 Seconds Gastrointestinal: Normal bowel sounds, Soft and benign, No tenderness Musculoskeletal: No clubbing, No swelling, No contractures, No erythema, No tenderness Integumentary: No rashes, No breakdown, No significant lesion, No tenderness/swelling, No erythema Neurological: Normal speech, Normal tone, Normal affect Lymphatics: No axilla or inguinal lymphadenopathy - Studies Laboratory Data (last 24 hrs) 05/23/22 13:40: WBC 7.00, Hgb 13.2, Hct 39.7, Plt Count 162 05/23/22 13:40: Sodium 134 L, Potassium 3.4 L, BUN 14, Creatinine 0.76, Glucose 146 H, Total Bilirubin 2.0 H, AST 47 H, ALT 65, Alkaline Phosphatase 319 H <Nell Inman - Last Filed: 05/23/22 18:42> - Studies Laboratory Data (last 24 hrs) 05/23/22 13:40: WBC 7.00, Hgb 13.2, Hct 39.7, Plt Count 162 05/23/22 13:40: Sodium 134 L, Potassium 3.4 L, BUN 14, Creatinine 0.76, Glucose 146 H, Total Bilirubin 2.0 H, AST 47 H, ALT 65, Alkaline Phosphatase 319 H <Joe Michelle - Last Filed: 05/24/22 07:08> Assessment and Plan - Plan --Pulmonary embolism. Likely secondary to cancer. CTA PE chest protocol indicates PE. Patient given Lovenox subQ in the ER. Patient's oncologist recommended not do any further work-up but to place patient on Xarelto. Patient reports medication compliance but patient was on a cruise last week. Unclear if patient was truly taking her medication. Continue supportive care. --Atrial fibrillation. Patient placed on metoprolol. Continue Xarelto. Telemetry to monitor for any malignant arrhythmia. --Hypertension. Poorly controlled. Continue home medications and labetalol as needed. --Nicotine dependence. Patient counseled on tobacco cessation. Placed on nicotine patch. --Hypokalemia. Replete as needed. --CKD 2. Stable. We will continue to monitor renal functions. --Elevated BNP. CT imaging indicates mild CHF. Echocardiogram pending to assess cardiac functions and structures. Patient placed on diuresis with Lasix. Daily weight and strict I/O. Continue supportive care. --Pancreatic cancer. Patient on chemotherapy. Patient reported that her last chemotherapy was April 19, 2022. Patient reported that she was scheduled for a chemotherapy session tomorrow. Patient will continue to follow-up with her outpatient oncologist for further management. --DVT prophylaxis with Xarelto. Discharge Plan: Home Plan to discharge in: 48 Hours - Advance Directives Does patient have a Living Will: No Does patient have a Durable POA for Healthcare: No - Code Status/Comfort Care Code Status Assessed: Yes Physician Review: Patient Assessed, Agree with Above Assessment and Plan Critical Care: No <Nell Inman - Last Filed: 05/23/22 18:42> Physician Review: Patient Assessed, Agree with Above Assessment and Plan <Joe Michelle - Last Filed: 05/24/22 07:08>
[2022-05-23] MEDS ORDERED: FUROSEMIDE 40 MG/4 ML VIAL IV SCH (18:00)
[2022-05-23] MEDS: ASPIRIN 325 MG TAB PO SCH (18:00)
[2022-05-23] MEDS ORDERED: POTASSIUM CL SA 10 MEQ TAB PO ONE (18:32)
[2022-05-23] MEDS ORDERED: RIVAROXABAN 15 MG TABLET PO SCH (21:00)
[2022-05-23] MEDS: METOPROLOL TAR 25 MG TAB PO SCH (21:12)
[2022-05-24] MEDS: METOPROLOL TAR 25 MG TAB PO SCH (05:23)
[2022-05-24 05:53] LABS: Absolute Lymphocytes (CBC) 1.2 K/uL (0.7-4.9); Hematocrit 39.7 % (36.0-45.0); Lymphocytes % 17.8 % (15.3-44.8); MCV 93.9 fL (80-100); MPV 11.5 fL (7.6-11.3); RBC Red Blood Cell Count 4.22 M/uL (3.86-4.86)
[2022-05-24 06:09] LABS: Magnesium 2.1 mg/dL (1.8-2.4); Phosphorus 3.1 mg/dL (2.5-4.9); Potassium 3.6 mmol/L (3.5-5.1)
[2022-05-24 06:49] LABS: Specific Gravity > 1.030 (1.005-1.030); Urine Bilirubin NEGATIVE (Negative); Urine Blood Negative (Negative); Urine Clarity Clear (Clear); Urine Color Yellow (Yellow); Urine Glucose NEGATIVE (Negative); Urine Protein TRACE (Negative); Urine RBC <5 /HPF (None Seen); Urine Urobilinogen Normal (Normal)
[2022-05-24] MEDS ORDERED: FUROSEMIDE 20 MG/ 2ML VIAL IV ONE (07:06)
[2022-05-24] MEDS ORDERED: FUROSEMIDE 40 MG/4 ML VIAL IV ONE (07:06)
[2022-05-24 07:18] LABS: Blood Morphology Comment NOT SEEN (NOT SEEN); Platelet Estimate ADEQ
[2022-05-24] MEDS ORDERED: PNEUMOCOCCAL VACCINE 0.5 ML IMVAC ONE (08:00)
[2022-05-24] MEDS: ASPIRIN 325 MG TAB PO SCH (08:32)
[2022-05-24] MEDS: RIVAROXABAN 15 MG TABLET PO SCH ×2 (08:32→17:04)
[2022-05-24] MEDS: NICOTINE 21 MG/PAT TD SCH (08:33)
[2022-05-24] MEDS ORDERED: POTASSIUM CL SA 10 MEQ TAB PO ONE (09:00)
[2022-05-24] MEDS ORDERED: METOPROLOL XL 100 MG TAB PO SCH (12:00)
[2022-05-24] MEDS: METOPROLOL TARTRATE 5 MG/5 ML INJ IV PRN ×3 (17:05→17:53)
--- NOTE | 2022-05-24 18:58 | P.PN ---
Subjective Date of Service: 05/24/22 Chief Complaint: Shortness of breath No acute events overnight. She reports that her symptoms have improved. Per RN, she has been intermittently in atrial fibrillation with RVR. She has been asymptomatic during these episodes. Review of Systems 10-point ROS is otherwise unremarkable Respiratory: Shortness of Breath (improved) Physical Examination - Vital Signs Temperature: 98.1 F Blood Pressure: 118/87 Pulse: 126 Respirations: 20 Pulse Ox (%): 95 - Physical Exam General: Alert, In no apparent distress, Oriented x3 HEENT: Atraumatic, Mucous membr. moist/pink, EOMI, Sclerae nonicteric Neck: JVD not distended Respiratory: Clear to auscultation bilaterally, Normal air movement Cardiovascular: No edema, No gallops, No rubs, No murmurs, Irregular heart rate/rhythm Gastrointestinal: Normal bowel sounds, Soft and benign, Non-distended, No tenderness, No rebound, No guarding Musculoskeletal: No clubbing Integumentary: No rashes Neurological: Normal speech, Cranial nerves 3-12 intact, Normal affect Assessment And Plan - Plan # Acute Right Lower Lobe Pulmonary Embolus # Pancreatic Cancer on Chemotherapy (first dose 04/19/2022) - D-Dimer = 6905 - CT chest angiogram = "Mild right lower lobe pulmonary emboli. Mild CHF." - Trasnthoracic echocardiogram = pending - Does not demonstrate hypoxia - Continue rivaroxaban # Paroxysmal Atrial Fibrillation with Rapid Ventricular Response Her [id number] = 5 (CHF=1, HTN=1, Age>75=2, Sex=1), which warrants anticoagulation. - Cardiology consulted and spoke with Dr. Chu - recommendations appreciated - For rate control: - Continue metoprolol - For anticoagulation: - Continue rivaroxaban # Suspect Mild Acute Decompensated Congestive Heart Failure with Unknown Ejec tion Fraction - Consult Cardiology and spoke with Dr. Chu - recommendations appreciated - Chest x-ray = "mild CHF" - Ordered transthoracic echocardiogram - Diuresis with IV furosemide for today - Daily weights - Strict I/O - Cardiac diet, 1.5 L fluid restriction, 2 g Na restriction # Hypertension - Continue home metoprolol # Tobacco Use Disorder - Continue nicotine patch - Tobacco cessation counseling provided Joe Michelle M.D.
[2022-05-24 22:11] VITALS: BMI 25.9
[2022-05-25 04:17] LABS: Potassium 3.6 mmol/L (3.5-5.1); Thyroid Stimulating Hormone 2.71 uIU/mL (0.360-3.740)
[2022-05-25] MEDS: METOPROLOL XL 100 MG TAB PO SCH ×2 (05:09→17:07)
--- NOTE | 2022-05-25 07:21 | ECHO ---
HEIGHT: 5 ft 5 in WEIGHT: 152 lb 0 oz DATE OF STUDY: 05/24/[address]: Nell Inman 2-DIMENSIONAL: YES M.MODE: YES DOPPLER: YES COLOR FLOW: YES TDS: PORTABLE: YES DEFINITY: BUBBLE STUDY: DIAGNOSIS: SUSPECTED CONGESTIVE HEART FAILURE CARDIAC HISTORY: CATHERIZATION: SURGERY: PROSTHETIC VALVE: PACEMAKER: MEASUREMENTS (cm) DIASTOLIC (NORMALS) SYSTOLIC (NORMALS) IVSd 0.9 (0.6-1.2) LA Diam 4.0 (1.9-4.0) LVEF 48% LVIDd 5.3 (3.5-5.7) LVIDs 4.0 (2.0-3.5) %FS 24% LVPWd 1.1 (0.6-1.2) Ao Diam 2.8 (2.0-3.7) 2 DIMENSIONAL ASSESSMENT: RIGHT ATRIUM: NORMAL LEFT ATRIUM: NORMAL RIGHT VENTRICLE: NORMAL LEFT VENTRICLE: NORMAL TRICUSPID VALVE: NORMAL MITRAL VALVE: NORMAL PULMONIC VALVE: NORMAL AORTIC VALVE: NORMAL PERICARDIAL EFFUSION: NONE AORTIC ROOT: NORMAL LEFT VENTRICULAR WALL MOTION: MILD GLOBAL HYPOKINESIS DOPPLER/COLOR FLOW: MILD TRICUSPID REGURGITATION. NORMAL RIGHT VENTRICULAR SYSTOLIC PRESSURE COMMENTS: 1. MILD GLOBAL HYPOKINESIS. 2. NO PULMONARY HYPERTENSION 3. EJECTION FRACTION 48% 4. ATRIAL FIBRILLATION TECHNOLOGIST: JONA BARRIENTOS
[2022-05-25] MEDS: NICOTINE 21 MG/PAT TD SCH (09:00)
[2022-05-25] MEDS ORDERED: POTASSIUM CL SA 10 MEQ TAB PO ONE (09:00)
[2022-05-25] MEDS: ASPIRIN 325 MG TAB PO SCH (09:06)
[2022-05-25] MEDS: RIVAROXABAN 15 MG TABLET PO SCH ×2 (09:06→17:07)
[2022-05-25] MEDS ORDERED: DIGOXIN 0.25 MG/ML AMP IV ONE (09:16)
--- NOTE | 2022-05-25 20:02 | P.PN ---
Subjective Date of Service: 05/25/22 Chief Complaint: Shortness of breath No acute events overnight. She reports complete resolution of her symptoms. This morning, she was in atrial fibrillation with RVR with heart rates in the 130s. She has been asymptomatic. Review of Systems 10-point ROS is otherwise unremarkable Physical Examination - Vital Signs Temperature: 98.0 F Blood Pressure: 132/93 Pulse: 104 Respirations: 18 Pulse Ox (%): 96 Assessment And Plan - Plan - Physical Exam General: Alert, In no apparent distress, Oriented x3 HEENT: Atraumatic, Mucous membr. moist/pink, EOMI, Sclerae nonicteric Neck: JVD not distended Respiratory: Clear to auscultation bilaterally, Normal air movement Cardiovascular: No edema, No gallops, No rubs, No murmurs, Irregular heart rate/rhythm Gastrointestinal: Normal bowel sounds, Soft and benign, Non-distended, No tenderness, No rebound, No guarding Musculoskeletal: No clubbing Integumentary: No rashes Neurological: Normal speech, Cranial nerves 3-12 intact, Normal affect # Acute Right Lower Lobe Pulmonary Embolus # Pancreatic Cancer on Chemotherapy (first dose 04/19/2022) - D-Dimer = 6905 - CT chest angiogram = "Mild right lower lobe pulmonary emboli. Mild CHF." - Transthoracic echocardiogram = "1. mild global hypokinesis. 2. no pulmonary hypertension 3. ejection fraction 48% 4. atrial fibrillation" - Does not demonstrate hypoxia - Continue rivaroxaban # Paroxysmal Atrial Fibrillation with Rapid Ventricular Response Her [id number] = 5 (CHF=1, HTN=1, Age>75=2, Sex=1), which warrants anticoagulation. - Cardiology consulted and spoke with Dr. Chu - recommendations appreciated - For rate control: - Metoprolol increased to BID - Digoxin 0.5 mg x [address] Chu - For anticoagulation: - Continue rivaroxaban # Suspect Mild Acute Decompensated Congestive Heart Failure with Reduced Ejection Fraction (LVEF 48 %) - Consult Cardiology and spoke with Dr. Chu - recommendations appreciated - Chest x-ray = "mild CHF" - Trasnthoracic echocardiogram = "1. mild global hypokinesis. 2. no pulmonary hypertension 3. ejection fraction 48% 4. atrial fibrillation" - Diuresis with IV furosemide - Daily weights - Strict I/O - Cardiac diet, 1.5 L fluid restriction, 2 g Na restriction # Hypertension - Continue home metoprolol # Tobacco Use Disorder - Continue nicotine patch - Tobacco cessation counseling provided Joe Michelle M.D.
[2022-05-26] MEDS: METOPROLOL XL 100 MG TAB PO SCH (05:26)
--- NOTE | 2022-05-26 08:22 | P.DS ---
Admission Date: 05/23/22 Discharge Date: 05/26/22 Disposition: ROUTINE DISCHARGE Discharge Condition: GOOD Reason for Admission: Shortness of breath Consultations: 1. Cardiology Hospital Course: DIAGNOSES: # Acute Right Lower Lobe Pulmonary Embolus # Pancreatic Cancer on Chemotherapy (first dose 04/19/2022) # Paroxysmal Atrial Fibrillation with Rapid Ventricular Response # Suspect Mild Acute Decompensated Congestive Heart Failure with Reduced Ejection Fraction (LVEF 48 %) # Hypertension # Tobacco Use Disorder DIAGNOSES: Ms. Nile Michele is a pleasant 76 year old female with a past medical history significant for pancreatic cancer on chemotherapy, paroxysmal atrial fibrillation, chronic systolic congestive heart failure, hypertension, and tobacco use disorder who was admitted to the [facility] on 05/23/2022 for shortness of breath. She was admitted to the Medicine service. Upon further evaluation, her CT chest angiogram revealed, "mild right lower lobe pulmonary emboli. Mild CHF." She was started on rivaroxaban and monitored overnight. Her transthoracic echocardiogram revealed, "1. mild global hypokinesis. 2. no pulmonary hypertension 3. ejection fraction 48% 4. atrial fibrillation." During her hospital stay, she went into atrial fibrillation with rapid ventricular response. Cardiology was consulted and she was evaluated by Dr. Chu. He increased her metoprolol dose and gave her one dose of digoxin, with significant improvement in her heart rates. He has cleared her for discharge with metoprolol succinate 100 mg BID and outpatient follow-up. On 05/26/2022, she was seen on morning rounds and deemed medically stable for discharge. She was discharged with instructions to schedule follow-up appointments with her PCP (Dr. Diane) and with her City Council Member (Dr. Chu). She was provided prescriptions for metoprolol and levalbuterol. She was given the opportunity to ask questions and reported no further questions. Furthermore, all questions were answered to the best of my ability. A copy of this discharge summary will be sent to the above providers to facilitate continuity of care. Today, I personally spent 25 minutes on her case, of which greater than 50% of the time was spent in patient education, counseling, and coordination of care as described above. - Physical Exam General: Alert, In no apparent distress, Oriented x3 HEENT: Atraumatic, Mucous membr. moist/pink, EOMI, Sclerae nonicteric Neck: JVD not distended Respiratory: Clear to auscultation bilaterally, Normal air movement Cardiovascular: No edema, No gallops, No rubs, No murmurs, Irregular heart rate/rhythm Gastrointestinal: Normal bowel sounds, Soft and benign, Non-distended, No tenderness, No rebound, No guarding Musculoskeletal: No clubbing Integumentary: No rashes Neurological: Normal speech, Cranial nerves 3-12 intact, Normal affect Vital Signs/Physical Exam: Temp Pulse Resp BP Pulse Ox 96.9 F 106 H 16 127/75 97 05/26/22 08:00 05/26/22 08:00 05/26/22 08:00 05/26/22 08:00 05/26/22 08:00 Laboratory Data at Discharge: WBC 6.70 K/uL (4.3-10.9) 05/24/22 05:32 Hgb 13.3 g/dL (12.0-15.0) 05/24/22 05:32 Hct 39.7 % (36.0-45.0) 05/24/22 05:32 Plt Count 154 K/uL (152-406) 05/24/22 05:32 Sodium 135 mmol/L (136-145) L 05/25/22 03:20 Potassium 3.6 mmol/L (3.5-5.1) 05/25/22 03:20 BUN 14 mg/dL (7-18) 05/25/22 03:20 Creatinine 0.82 mg/dL (0.55-1.3) 05/25/22 03:20 Glucose 104 mg/dL (74-106) 05/25/22 03:20 Phosphorus 3.1 mg/dL (2.5-4.9) 05/24/22 05:32 Phosphorus Cancelled 05/24/22 05:32 Magnesium 2.1 mg/dL (1.8-2.4) 05/24/22 05:32 Magnesium Cancelled 05/24/22 05:32 Total Bilirubin 2.0 mg/dL (0.2-1.0) H 05/23/22 13:40 AST 47 U/L (15-37) H 05/23/22 13:40 ALT 65 U/L (12-78) 05/23/22 13:40 Alkaline Phosphatase 319 U/L (45-117) H 05/23/22 13:40 Home Medications: Rivaroxaban [Xarelto] 1 tab PO DAILY 05/23/22 Levalbuterol Tartrate [Xopenex Hfa] 2 puff IH Q6H PRN #1 inhaler 05/26/22 Metoprolol Succinate [Toprol Xl] 100 mg PO BID #60 tab 05/26/22 New Medications: Metoprolol Succinate [Toprol Xl] 100 mg PO BID #60 tab Levalbuterol Tartrate [Xopenex Hfa] 2 puff IH Q6H PRN #1 inhaler PRN Reason: Shortness Of Breath Physician Discharge Instructions: 1. Please call and schedule a follow-up appointment with your PCP (Dr. Diane) in 3-5 days 2. Please attend your scheduled appointment with Cardiology (Dr. Chu) - 05/29/2022 @ 01:00 PM Diet: AHA Activity: Ad wayne Followup: Vincenzo Chu MD [ACTIVE - CAN ADMIT] - (call to schedule appointment) Dawson Diane MD [Primary Care Provider] - (Call to schedule appointment) Time spent managing pt's care (in minutes): 25
[2022-05-26] MEDS: RIVAROXABAN 15 MG TABLET PO SCH (08:49)
[2022-05-26] MEDS: NICOTINE 21 MG/PAT TD SCH (08:51)
[2022-05-26] MEDS: ASPIRIN 325 MG TAB PO SCH (08:51)
[2022-05-26] MEDS ORDERED: POTASSIUM CL SA 10 MEQ TAB PO ONE (09:00)
[2022-05-26 09:30] VITALS: BP 127/75; TEMP 96.9
[2022-05-26 10:15] VITALS: O2SAT 97
--- NOTE | 2022-05-27 22:45 | CON ---
Date of Consultation: 05/24/2022 Admitted on 05/23/[address] Michelle with atrial fibrillation and pulmonary embolus. Reason For Consultation: Atrial fibrillation. History Of Present Illness: Ms. Michele is 76, has a history of hypertension, paroxysmal atrial fibril lation. She takes Xarelto, aspirin, Lasix, metoprolol, she is at 100 mg 1 p.o. b.i.d. Came in with pulmonary embolus. Her metoprolol was not given upon admission and she went into atrial fibrillation with rapid ventricular response with palpitation, some shortness of breath. No chest pain, nausea, vomiting, diaphoresis, PND, orthopnea, pedal edema, or syncope. Denied any fever or chills. She marilyn lokesh positive for pulmonary embolus by CT angiography. She had elevated D-dimer, elevated BNP. She i s asymptomatic, right now with atrial fibrillation, rate of 110. Allergies: NONE. Review of Systems: Negative. Social History: Negative. Family History: Negative. Medications: Listed above. Physical Examination: Vital Signs: Stable. Atrial fibrillation, rate of 110, afebrile. HEENT: Negative. Neck: Supple with no bruit. Chest: Clear. Cardiac: Revealed atrial fibrillation. Abdomen: Benign. Extremities: Revealed no clubbing, cyanosis, or edema. Diagnostic Data: As stated above. Impression And Plan: Paroxysmal atrial fibrillation, recurrent since holding on metoprolol. I would go up on metoprolol dose to back which was taken at home, which is 100 mg b.i.d. I will give her 1 dose of digoxin 0.5 mg IV push x1, aim for rate control. Continue Xarelto. Continue aspirin. Kami nue Lasix. She can go home whenever it is okay with Dr. Michelle. She is asymptomatic. She will have to be on Xarelto for life because of her pulmonary embolus. I will see her in the office in the next week or two. MARY/ANA Voice ID: [id number] Report ID: [id number]
== END 2022-05-26 09:58 | disposition home or self-care (01) | DRG 175 ==
LOC: ER 12:57 → ERHOLD 16:13 → 2ND 18:33
PROVIDERS: ADMIT Internal Medicine; ATTEND Internal Medicine
DX: I26.99 Other pulmonary embolism without acute cor pulmonale (principal); I50.23 Acute on chronic systolic (congestive) heart failure; C25.9 Malignant neoplasm of pancreas, unspecified; I13.0 Hypertensive heart and chronic kidney disease with heart failure and stage 1 through stage 4 chronic kidney disease, or unspecified chronic kidney disease; N18.2 Chronic kidney disease, stage 2 (mild); I48.0 Paroxysmal atrial fibrillation; E87.6 Hypokalemia; F17.210 Nicotine dependence, cigarettes, uncomplicated; R79.89 Other specified abnormal findings of blood chemistry; Z79.01 Long term (current) use of anticoagulants; Z79.899 Other long term (current) drug therapy; Z20.822 Contact with and (suspected) exposure to COVID-19
CPT/HCPCS: 36415; 71045; 71275; 80048; 80076; 81001; 83735; 83880; 84100; 84132; 84443; 84484; 85025; 85379; 87811; 93005; 93306; 96361; 96372; 96374; 99285; J1160; J1650; J1940; J7040; Q9967

== ENCOUNTER 2022-08-21 10:27 | Inpatient (IN) | payer OTHER ==
--- OUTSIDE RECORDS SUMMARY | 2022-08-21 10:32 | XMS REPORT | Continuity of Care Document ---
:1945 Author Organization [facility] t Address [address] [place] [address] [place] [id number] Care Team Providers Name Role Phone System, Provider Not In Primary Care Physician Unavailable David CORDOVA, Frida Jacobs Attending Clinician [phone] , [facility] Room Attending Clinician Unavailable FRIDA HERNANDEZ Attending Clinician Unavailable FRIDA HERNANDEZ Attending Clinician Unavailable Virtual, Surgeon Attending Clinician Unavailable Paige CORDOVA, Zhen Salcedo Attending Clinician JOY KAUR Attending Clinician Unavailable Doctor Unassigned, [place] Attending Clinician Unavailable Lab, Adc Fam Pob I Attending Clinician Unavailable Patti CORDOVA, Nanette Anderson Attending Clinician FRIDA HERNANDEZ Admitting Clinician Unavailable Payers Payer Name Policy Type Policy Number Effective Date Expiration Date Elfego [facility] [id number] [facility] Problems This patient has no known problems. Allergies, Adverse Reactions, Alerts Allergy Allergy Status Severity Reaction(s) Onset Inactive Treating Comm ents Source Name Type Date Date Clinician NO KNOWN Drug Active [facility] ALLERG Class it[facility] of [facility] NO KNOWN Allergy Active [facility] Social History Social Habit Start Date Stop Date Quantity Comments Source Exposure to 2022-05-12 2022-05-22 Not sure [facility] SARS-CoV-2 (event) 00:00:00 07:17:00 [facility] Sex Assigned At [birth year] [facility] 00:00[facility]00 00:00:00 Smoking Status Start Date Stop Date Source Tobacco smoking consumption unknown [facility] Medications Ordered Filled Start Stop Current Ordering Indication Dosage Frequency Signature Comments Components Source Medication Medication Date Date Medication? Clinician (SIG) Name Name rivaroxaban 2021-06 Yes Take [facility] ([facility]05 [facility] mg 11:21: daily with Medica l tablet 05 dinner. [place] metoprolol 2021-06 Yes 100mg QD Take [address] succinate 2-05 mg by [facility] (Toprol XL) 11:21: mouth Medic al 100 MG 24 05 daily. [place] hr tablet rivaroxaban 2021-06 Yes Take by [facility] (XARELTO) 2-05 [facility] 20 mg 11:21: daily with Medica l tablet 05 dinner. [place] metoprolol 2021-06 Yes 100mg QD Take [address] succinate 2-05 mg by [facility] (Toprol XL) 11:21: mouth Medic al 100 MG 24 05 daily. [facility] tablet rivaroxaban 2021-06 Yes Take by [facility] (XARELTO) 2-05 [facility] 20 mg 11:21: daily with Medica l tablet 05 dinner. [place] metoprolol 2021-06 Yes 100mg QD Take [address] succinate 2-05 mg by [facility] (Toprol XL) 11:21: mouth Medic al 100 MG 24 05 daily. [place] hr tablet rivaroxaban 2021-06 Yes Take by [facility] (XARELTO) 2-05 [facility] 20 mg 11:21: daily with Medica l tablet 05 dinner. [place] metoprolol 2021-06 Yes 100mg QD Take [address] succinate 2-05 mg by [facility] (Toprol XL) 11:21: mouth Medic al 100 MG 24 05 daily. [place] hr tablet rivaroxaban 2021-06 Yes Take by [facility] (XARELTO) 2-05 [facility] 20 mg 11:21: daily with Medica l tablet 05 dinner. [place] metoprolol 2021-06 Yes 100mg QD Take [address] succinate 2-05 mg by [facility] (Toprol XL) 11:21: mouth Medic al 100 MG 24 05 daily. [place] hr tablet Vital Signs Vital Name Observation Time Observation Value Comments Source HEIGHT 2022-05-22 07:20:00 165.1 cm WEIGHT 2022-05-22 07:20:00 69.854 kg HEIGHT 2022-05-22 07:20:00 165.1 cm WEIGHT 2022-05-22 07:20:00 69.854 kg HEIGHT 2022-05-22 07:20:00 165.1 cm WEIGHT 2022-05-22 07:20:00 69.854 kg Systolic blood 2022-05-22 10:36:00 123 mm[Hg] [facility] Diastolic blood 2022-05-22 10:36:00 73 mm[Hg] [facility] Heart rate 2022-05-22 10:36:00 111 /min [facility] Body temperature 2022-05-22 10:36:00 36.06 [facility] Respiratory rate 2022-05-22 10:36:00 16 /min [facility] Oxygen saturation in 2022-05-22 10:36:00 97 /min [facility] Arterial blood by Medical Ce nter Pulse oximetry Body height 2022-05-22 07:20:00 165.1 cm [facility] Body weight 2022-05-22 07:20:00 69.854 kg [facility] BMI 2022-05-22 07:20:00 25.63 kg/m2 [facility] Procedures Procedure Date / Time Performing Clinician Source Performed CT ABDOMEN/PELVIS WITH & 2022-07-06 13:15:00 Frida Hernandez [facility] WITHOUT IV CONTRAST [facility] CT CHEST WITH IV CONTRAST 2022-07-06 13:15:00 Frida Hernandez [facility] CBC W/AUTO DIFF WITH 2022-06-27 11:36:00 [facility] COMPREHENSIVE METABOLIC 2022-06-27 11:36:00 [facility] CANCER ANTIGEN 19-9 2022-06-27 11:36:00 [facility] CT 2022-05-22 09:52:00 Frida Hernandez [facility] BIOPSY/ASPIRATION/INJECTI [facility] ON TISSUE EXAM 2022-05-22 09:43:00 Frida Hernandez [facility] CBC W/PLT COUNT & AUTO 2022-05-22 07:43:00 Bita Holt [facility] PROTHROMBIN TIME/INR 2022-05-22 07:43:00 Bita Holt [facility] CBC W/PLT COUNT & AUTO 2022-05-22 07:43:00 Bita Holt [facility] (CELLAVISION MANUAL DIFF) 2022-05-22 07:43:00 YanetBita [facility] AMB REF TO INTERVENTIONAL 2022-04-07 09:10:19 [facility] EXTERNAL Medicine IR PORT-A-CATH PLACEMENT 2022-03-30 10:48:00 Frida Hernandez [facility] CANCER ANTIGEN 19-9 2022-03-16 10:18:00 [facility] AMB REF TO GENETICS 2022-03-16 09:53:11 [facility] COUNSELOR (CANCER) Medicine SURGICAL PATHOLOGY 2022-03-06 21:56:00 Zhen Gibson [facility] REQUEST CANCER ANTIGEN 19-9 2022-02-24 15:42:37 [facility] ASSIGNMENT OF BENEFITS 2020-05-05 15:07:39 Doctor Unassigned, Un [facility] [place] [facility] Plan of Care Planned Activity Planned Date Details Comments Source Future Scheduled 2022-07-18 SHINGLES VACCINES (1 Met [facility] Hospital Test 16:41:53 of 2) [code = SHINGLES VACCINES (1 of 2)] Future Scheduled 2022-07-18 65+ PNEUMOCOCCAL [facility] Hospital Test 16:41:53 VACCINE (1 - PCV) [code = 65+ PNEUMOCOCCAL VACCINE (1 - PCV)] Future Scheduled 2022-07-18 COVID-19 VACCINE (2 - [facility] Test 16:41:53 Moderna series) [code = COVID-19 VACCINE (2 - Moderna series)] Future Scheduled 2022-07-18 INFLUENZA VACCINE Method ist Hospital Test 16:41:53 [code = INFLUENZA VACCINE] Future Scheduled 2022-06-[address] [facility] 00:00:00 WELLNESS (YEAR 2 or Medical Center FIRST YEAR if no IPPE) [code = MEDICARE ANNUAL WELLNESS (YEAR 2 or FIRST YEAR if no IPPE)] Future Scheduled 2022-06-[address] [facility] Test 00:00:00 WELLNESS (YEAR 2 or Medical Center FIRST YEAR if no IPPE) [code = MEDICARE ANNUAL WELLNESS (YEAR 2 or FIRST YEAR if no IPPE)] Future Scheduled 2022-06-[address] [facility] Test 00:00:00 (12+) [code = Medical Center DEPRESSION SCREENING (12+)] Future Scheduled 2022-06-18 FALLS RISK SCREENING [facility] Test 00:00:00 [code = FALLS RISK Medical C enter SCREENING] Future Scheduled 2022-06-[address] [facility] Test 00:00:00 (12+) [code = Medical Center DEPRESSION SCREENING (12+)] Future Scheduled 2022-06-18 FALLS RISK SCREENING [facility] Test 00:00:00 [code = FALLS RISK Medical C enter SCREENING] Future Scheduled 2022-06-[address] [facility] Test 00:00:00 (12+) [code = Medical Center DEPRESSION SCREENING (12+)] Future Scheduled 2022-06-18 FALLS RISK SCREENING [facility] Test 00:00:00 [code = FALLS RISK Medical C enter SCREENING] Future Scheduled 2022-04-20 COVID-19 VACCINE (2 - [facility] Hospital Test 10:25:30 Moderna series) [code = COVID-19 VACCINE (2 - Moderna series)] Future Scheduled 2022-04-20 INFLUENZA VACCINE [facility] Hospital Test 10:25:30 [code = INFLUENZA VACCINE] Future Scheduled 2022-04-20 HEPATITIS B VACCINES Met [facility] Test 10:25:30 (1 of 3 - 3-dose series) [code = HEPATITIS B VACCINES (1 of 3 - 3-dose series)] Future Scheduled 2022-04-20 SHINGLES VACCINES (1 [facility] Test 10:25:30 of 2) [code = SHINGLES VACCINES (1 of 2)] Future Scheduled 2022-04-20 65+ [facility] 10:25:30 VACCINE (1 - PCV) [code = 65+ PNEUMOCOCCAL VACCINE (1 - PCV)] Future Scheduled 2022-04-20 COVID-19 VACCINE (2 - [facility] Test 10:25:30 Moderna series) [code = COVID-19 VACCINE (2 - Moderna series)] Future Scheduled 2022-04-20 INFLUENZA VACCINE [facility] Hospital Test 10:25:30 [code = INFLUENZA VACCINE] Future Scheduled 2022-04-20 HEPATITIS B VACCINES Met [facility] Hospital Test 10:25:30 (1 of 3 - 3-dose series) [code = HEPATITIS B VACCINES (1 of 3 - 3-dose series)] Future Scheduled 2022-04-20 SHINGLES VACCINES (1 Met [facility] Hospital Test 10:25:30 of 2) [code = SHINGLES VACCINES (1 of 2)] Future Scheduled 2022-04-20 65+ [facility]AL [facility] 10:25:30 VACCINE (1 - PCV) [code = 65+ PNEUMOCOCCAL VACCINE (1 - PCV)] Future Scheduled 2022-04-12 HEPATITIS B VACCINES Met [facility] Hospital Test 15:39:08 (1 of 3 - 3-dose series) [code = HEPATITIS B VACCINES (1 of 3 - 3-dose series)] Future Scheduled 2022-04-12 SHINGLES VACCINES (1 Met [facility] Hospital Test 15:39:08 of 2) [code = SHINGLES VACCINES (1 of 2)] Future Scheduled 2022-04-12 65+ [facility]AL [facility] 15:39:08 VACCINE (1 - PCV) [code = 65+ PNEUMOCOCCAL VACCINE (1 - PCV)] Future Scheduled 2022-04-12 COVID-19 VACCINE (2 - [facility] Hospital Test 15:39:08 Moderna series) [code = COVID-19 VACCINE (2 - Moderna series)] Future Scheduled 2022-04-12 INFLUENZA VACCINE [facility] Test 15:39:08 [code = INFLUENZA VACCINE] Future Scheduled 2022-03-30 INFLUENZA VACCINE [facility] Test 10:58:22 [code = INFLUENZA VACCINE] Future Scheduled 2022-03-30 HEPATITIS B VACCINES Met [facility] Hospital Test 10:58:22 (1 of 3 - 3-dose series) [code = HEPATITIS B VACCINES (1 of 3 - 3-dose series)] Future Scheduled 2022-03-30 SHINGLES VACCINES (1 [facility] Hospital Test 10:58:22 of 2) [code = SHINGLES VACCINES (1 of 2)] Future Scheduled 2022-03-30 65+ [facility]UMOCOCCAL [facility] Test 10:58:22 VACCINE (1 - PCV) [code = 65+ PNEUMOCOCCAL VACCINE (1 - PCV)] Future Scheduled 2022-03-30 COVID-19 VACCINE (2 - [facility] Hospital Test 10:58:22 Moderna series) [code = [...] IPPE (WELCOME TO MEDICARE)] Future Scheduled 2021-06-[address] [facility] Test 00:00:00 WELLNESS (YEAR 2 or Medical Center FIRST YEAR if no IPPE) [code = MEDICARE ANNUAL WELLNESS (YEAR 2 or FIRST YEAR if no IPPE)] Future Scheduled 2009 PNEUMOCOCCAL 65+ YRS [facility] [...] Cessation Counseling and Screening (12+)] Future Scheduled [address] [facility] Test 00:00:00 Counseling and Medical Cente r Screening (12+) [code = Tobacco Cessation Counseling and Screening (12+)] Future Scheduled [address] [facility] Test 00:00:00 Counseling and Medical Cente r Screening (12+) [code = Tobacco Cessation Counseling and Screening (12+)] Future Scheduled [address] [facility] Test 00:00:00 Counseling and Medical Cente r Screening (12+) [code = Tobacco Cessation Counseling and Screening (12+)] Future Scheduled [address] [...] DXA [facility] Test 00:00:00 SCAN] [facility] Future Scheduled 1945 DXA SCAN [code = DXA [facility] Test 00:00:00 SCAN] [facility] Future Scheduled 1945 DXA SCAN [code = DXA [facility] Test 00:00:00 SCAN] [facility] Future Scheduled 1944 DXA SCAN [code = DXA [facility] Test 00:00:00 SCAN] [facility] Future Scheduled 1944 DXA SCAN [code = DXA [facility] Test 00:00:00 SCAN] [facility] Future Scheduled 1944 DXA SCAN [code = DXA [facility] Test 00:00:00 SCAN] [facility] Encounters Start End Encounter Admission Attending Care Care Encounter Source Date/Time Date/Time Type Type Clinicians Facility Department ID 2022-07-06 2022-07-06 [id number] 12:34:54 23:59:00 Encounter 1, [facility] 2022-07-06 2022-07-06 Outpatient EL [facility] [id number] SLE 12:34:54 23:59:00 [facility] 2022-07-06 2022-07-06 [facility] Frida Hernandez [facility] [id number] [facility] 12:34:54 23:59:00 Encounter 1, [facility] Room [facility] 2022-07-06 2022-07-06 [facility] Frida Hernandez [facility] [id number] [facility] 12:34:35 23:59:00 [facility] 2022-07-06 2022-07-06 Outpatient YOLA HERNANDEZ, [facility] [id number] [facility] 12:34:35 23:59:00 [facility] 2022-07-06 2022-07-06 [facility] [id number] [facility] 12:34:35 23:59:00 [facility] 2022-06-27 2022-06-27 Outpatient DAVID, [facility] [id number] [facility] 10:24:18 11:17:04 FRIDAMATTHEW garland of Medicin e 2022-06-27 2022-06-27 Orders David, [facility] [id number] 00:00:00 00:00:00 Only [facility] 2022-06-27 2022-06-[address] [facility] [id number] 00:00:00 00:00:00 Only [facility] 2022-05-22 2022-05-22 Outpatient DAVID, [facility] [id number] [facility] 09:01:11 23:59:00 [facility] 2022-05-22 2022-05-22 [facility], [facility] [id number] 08:00:00 23:59:00 Encounter [facility] 2022-05-22 2022-05-22 [facility], [facility] [id number] 08:00:00 23:59:00 Encounter [facility] 2022-05-22 2022-05-22 [facility] David, [facility] [id number] 06:07:00 11:19:00 Encounter [facility] 2022-05-22 2022-05-22 Outpatient YOLA HERNANDEZ [facility] Surgery [id number] SLE 06:07:00 11:19:00 [facility] 2022-05-22 2022-05-22 Hospital David, [facility] [id number] 06:07:00 11:19:00 Encounter [facility] 2022-05-22 2022-05-22 Surgery Virtual, [facility] [id number] 07:30:00 08:00:00 [facility] 2022-05-22 2022-05-22 Surgery Virtual, [facility] [id number] 07:30:00 08:00:00 [facility] 2022-05-22 2022-05-22 Travel [facility] [id number] [facility] 00:[facility]:00 00:00:00 [facility] 2022-05-22 2022-05-22 Travel [facility] [id number] [facility] 00:[facility]00 00:00:00 [facility] 2022-05-18 2022-05-18 Outpatient YOLA HERNANDEZ [facility] SLE [id number] SLE 00:00:00 00:00:00 [facility] 2022-04-12 2022-04-12 Outside [facility], [facility] [id number] 00:00:00 00:00:00 Orders [facility] 2022-04-12 2022-04-12 Outside [facility] [id number] 00:00:00 00:00:00 Orders [facility] 2022-04-06 2022-04-06 Outpatient ALETHEAYAYO [facility] [id number] [facility] 11:11:32 12:07:32 [facility] [employer] [facility] 2022-04-27 2022-03-30 Outpatient DAVID [facility] 2 [id number] [facility] 18:24:55 11:57:00 FRIDA 2022-03-30 2022-03-30 [facility] [id number] 08:00:00 11:57:00 Encounter [facility] 2022-03-30 2022-03-30 [facility] [id number] 08:00:00 11:57:00 Encounter [facility] 2022-03-16 2022-03-16 Outpatient DAVID [facility] [id number] [facility] 08:09:28 09:35:47 FRIDA Krause e of Medicin e 2022-03-16 2022-03-16 Orders [facility] [id number] 00:00:00 00:00:00 Only [facility] 2022-03-16 2022-03-16 Orders [facility] [id number] 00:00:00 00:00:00 Only [facility] 2022-03-06 2022-03-06 Lab Paige, 1.2.840.1 [id number] Methodi 16:50:00 16:55:[id number] 3.430.2.7 Hospit a .3.751974 l .8 2022-03-06 2022-03-06 Lab Ino Gibson.2.840.1 [id number] Methodi 16:50:00 16:55:[address] 3.430.2.7 Hospit a .3.431688 l .8 2022-02-24 2022-02-24 Outpatient NATASHA [facility] [id number] [facility] 14:15:21 15:35:35 JOY garland of Medicin e 2020-05-10 2020-05-10 Letter Doctor REANNA 1.2.840.114 [id number] Univers 00:00:00 00:00:00 (Out) Unassigned, JAMES 350.1.13.10 ity of [place] [facility] 4.2.7.2.686 Franky as [phone] [address] 2020-05-05 2020-05-05 Laboratory Lab, Adc Fam Pob I [facility] 1.2. 840.114 [id number] Univers 09:06:24 09:26:24 Only [facility] 350.1.13.1 0 ity of [place] 4.2.7.2.686 Franky as Professio [phone] [address] Office [address] 2020-05-05 2020-05-05 Outpatient R [facility] [id number] Univers 09:20:00 09:20:00 ity of [facility] 2020-05-05 2020-05-05 Orders Doctor REANNA 1.2.840.114 [id number] Univers 00:00:00 00:00:00 Only Unassigned, JAMES 350.1.13.10 [facility] [place] [facility] 4.2.7.2.686 Franky as [phone] [address] Results Test Description Test Time Test Comments Results Result Sour e Comments ANG, TUNNEL CATH 2022-06-19 pancreatic cancer; PORT * CENTRAL INS 9 for chemotherapyReason W/PORT C 14:40:00 for Exam:->Malignant neoplasm of body of [facility] - [facility]ENTER[facility]: JUSTINE SHERMAN : 1945 Sex: F FINAL REPORT Justine Finch 1945owntime on [id number] Right internal jugular chest port insertion History: Pancreatic cancer. Modality: Sonography and fluoroscopy. Sedation: Moderate sedation was administered. 0.5 mg of Versed and 25 mcg of fentanyl IV was used for moderate sedation monitored under my direction. Total intra-service time of sedation was 20 minutes. The patient's vital signs were monitored throughout the procedure and recorded in the patient's medical record by the nurse. Winder Operator: Kalli Rodriguez MD Catalyst Impregnator: None. Approach: Right internal jugular vein Estimated blood loss: < 5 cc. Specimen: None. Fluoroscopy Time: 0.5 min.Reference Air Kerma (Ka, r): 1.9 mGy. Technique: Informed written consent was obtained. Discussion of risks, benefits, and alternatives were made with the patient. The patient expressed understanding and agreed to proceed. A universal timeout was performed prior to starting the procedure. All elements maximal sterile barrier technique was utilized for this procedure, including utilization of sterile scrub solution for skin prep, a large sterile sheet to cover the areas of the patient that were not prepped, and hand hygiene, mask, head covering, and sterile gown for performing radiologist and scrub technologist. The skin was anesthetized with 2% lidocaine. Ultrasound evaluation showed a patent and compressible right internal jugular vein, which was punctured under direct real-time ultrasound guidance with a micropuncture needle. An ultrasound image was saved to PACS. A 0.018 inch wire was placed through the needle into the right atrium. A 4 Czech micropuncture sheath was placed and a 0.035 wire was advanced into the IVC. A subcutaneous tunnel and pocket were created in the right anterior chest wall by blunt dissection. A 6F Bard port was placed within the pocket and the catheter brought through the tunnel. The catheter was cut at 22 cm. A peel-away sheath was placed in the right IJ vein and the catheter was advanced through the sheath, with its distal tip terminating in the superior right atrium. The peel-away sheath was removed. The port was flushed and aspirated easily following placement. The skin incision was closed with 3-0 Monocryl and Dermabond. The small jugular incision site was closed using Dermabond. The patient tolerated the procedure well and left the department in the same condition. Results: Spot radiograph of the chest demonstrates the new right IJ Port-A-Cath to lie in the expected position with its tip overlying the superior right atrium. Impression: Successful, uncomplicated placement of a right internal jugular chest port using sonographic and fluoroscopic guidance and conscious sedation. The port is ready for immediate use. Signed: Kalli Rodriguez MDReport Verified Date/Time: 07/16/2022 14:40:49 Reading Location: [facility] P048 Angio Body Reading Room , ABDOMEN 2022-06-18 pancreatic cancer 9 restagingWithin 1 15:28:00 weekRelease to patient->ImmediateWhich [facility] radiology location is CENTERName: WHIT, preferred?->[place] JUSTINE GONZALEZ : n for exam:->PANCREAS 1945 Sex: protocol - pancreatic F cancerInsurance GoGo Tech ID = [id number]; Insurance Company Name = [employer]; Insurance REPORT PATIENT ID: Company Phone Number = [phone] CT of the ; Policy Number = abdomen with and [id number] without contrast, CT of chest and pelvis with contrast Clinical History: C25.1\\S\\Malignant neoplasm of body of pancreas Technique: CT of the abdomen is performed without IV contrast, followed by CT of chest, abdomen and pelvis performed with intravenous contrast administration and without oral contrast administration. This exam was performed according to our departmental dose optimization program which includes automated exposure control, adjustment of the mA and/or kV according to patient's size and/or use of iterative reconstructive technique. Comparison Film: None Discussion: There is a right-sided Port-A-Cath. A few subcentimeter nodules are noted in the thyroid gland, no imaging follow-up is needed. No supraclavicular, axillary, mediastinal or hilar lymphadenopathy. Heart is enlarged. There is trace left effusion, and a epnxe-lm-kpsimhnw right-sided effusion, associated with relaxation atelectasis of the lower lobes. Lungs are emphysematous. In the left lower lobe, there is a 8 x 5 mm nodule (image 58), and a 4 mm nodule (image 83). In the middle lobe, there is a 7 x 4 mm subpleural nodule (image 84). A 3 mm nodule is noted in the right upper lobe (image 48, and there is also a 5 mm somewhat triangular nodule in the left upper lobe (image 50). No liver mass is identified. No biliary ductal dilatation. Gallbladder is normal. There is a infiltrative hypoenhancing mass involving the pancreatic body and tail, measuring approximately 3.7 x 2.5 x 2.7 cm. It encases both the splenic arteries and vein, with venous occlusion, and collateral formation. The mass also abuts the confluence of SMV and main portal vein by approximately 90 degrees. 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 No evidence of tumoral encasement of the celiac artery, hepatic artery or SMA. Spleen, adrenal glands are normal. Kidneys demonstrate no mass, hydronephrosis or radiopaque stone. No evidence of bowel obstruction, or abnormal bowel wall thickening. Normal appendix. In the pelvis, bladder, uterus and adnexa are unremarkable. There is a small amount of pelvic ascites. Peritoneal nodules are compatible with carcinomatosis. Subtle peritoneal nodularity is also noted in the cul-de-sac. 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 Peritoneal carcinomatosis. Trace ascites. 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 Several nonspecific pulmonary nodules as described, metastasis is a concern, amenable to follow-up. Cardiomegaly. Small right pleural effusion. Emphysema. Signed: Bita Holteport Verified Date/Time: 07/06/2022 15:28:04 Reading Location: [facility] B1 C013X Ortho Consult Reading Room , CHEST, WITH 2022-06-18 pancreatic cancer IV CONTRAST 9 restagingWithin 1 15:28:00 weekRelease to patient->ImmediateWhich [facility] / [facility] radiology location is CENTERName: [place], preferred?->Romi GONZALEZ : n for exam:->pancreatic 1945 Sex: cancer F restagingInsurance Company ID = [id number]; Insurance Company Name FINAL = [facility]; REPORT PATIENT ID: Insurance Company Phone [phone] CT of Number = ; Policy the abdomen with Number = [id number] and without contrast, CT of chest and pelvis with contrast Clinical History: C25.1\\S\\Malignant neoplasm of body of pancreas Technique: CT of the abdomen is performed without IV contrast, followed by CT of chest, abdomen and pelvis performed with intravenous contrast administration and without oral contrast administration. This exam was performed according to our departmental dose optimization program which includes automated exposure control, adjustment of the mA and/or kV according to patient's size and/or use of iterative reconstructive technique. Comparison Film: None Discussion: There is a right-sided Port-A-Cath. A few subcentimeter nodules are noted in the thyroid gland, no imaging follow-up is needed. No supraclavicular, axillary, mediastinal or hilar lymphadenopathy. Heart is enlarged. There is trace left effusion, and a igjbg-pz-cxymbjqe right-sided effusion, associated with relaxation atelectasis of the lower lobes. Lungs are emphysematous. In the left lower lobe, there is a 8 x 5 mm nodule (image 58), and a 4 mm nodule (image 83). In the middle lobe, there is a 7 x 4 mm subpleural nodule (image 84). A 3 mm nodule is noted in the right upper lobe (image 48, and there is also a 5 mm somewhat triangular nodule in the left upper lobe (image 50). No liver mass is identified. No biliary ductal dilatation. Gallbladder is normal. There is a infiltrative hypoenhancing mass involving the pancreatic body and tail, measuring approximately 3.7 x 2.5 x 2.7 cm. It encases both the splenic arteries and vein, with venous occlusion, and collateral formation. The mass also abuts the confluence of SMV and main portal vein by approximately 90 degrees. 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 No evidence of tumoral encasement of the celiac artery, hepatic artery or SMA. Spleen, adrenal glands are normal. Kidneys demonstrate no mass, hydronephrosis or radiopaque stone. No evidence of bowel obstruction, or abnormal bowel wall thickening. Normal appendix. In the pelvis, bladder, uterus and adnexa are unremarkable. There is a small amount of pelvic ascites. Peritoneal nodules are compatible with carcinomatosis. Subtle peritoneal nodularity is also noted in the cul-de-sac. 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 Peritoneal carcinomatosis. Trace ascites. 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 Several nonspecific pulmonary nodules as described, metastasis is a concern, amenable to follow-up. Cardiomegaly. Small right pleural effusion. Emphysema. Signed: Bita Holteport Verified Date/Time: 07/06/2022 15:28:04 Reading Location: [facility] C013X [facility] Consult Reading Room Tissue Exam 2022-05-24 11:55:54 Test Item Value Reference Range Interpretation Comme nts Case Report (test code = 104) Surgical Pathology Report Case: [id number] Authorizing Provider: Frida Hernandez, Collected: 05/22/2022 09:43 AM Ordering Location: [facility] PERIOPERATIVE Received: 05/22/2022 12:28 PM SERVICES Pathologist: Galilea Em MD Specimen: Bone, T 12 DIAGNOSIS (test code = 3220) z1zjqNJtWIJym2pxIPItkAYrPwXlBeJdDwRnQz pc dWMxIHtccnRmMVxlcGljOTYwMlxhbnNpXHNwbHRw [file] YWdlXHBnbmNvbnRccGduZGVjXHBsYWluXHBsYWlu XGYwXGZzMjRccWxcbGFuZzEwMzNcaGljaFxmMVxk GbUsOCMiKFpgX1nyGwXzYbZqBbq4SCJynYWqPCMq Slv0RPSxzYRbGJZRfKahvE9vYWZdqTtvqW7mkQV1 FTBaanIbgRLQvK8kPVIPmI8bFnR1CeIpIhK0TLv5 OTFccGFyfX0= COMMENT (test code = 3359) h2cueDUsEQYjnGL4EnKzNXIcb6sys0PkaFKhqMAe RPkjdXAgogYcis35hEQ9aA29WS3jSPXmVbP9MFSg xbK8Mjl2ZIImEKFphOQeS748i6gyf3vjxhQozGQ6 pRbjAVGrbugyFrA5AYsnXQOsezyzPEh9UBvhLUQl eZS1MZItiFWuE3JrMIExBZ3opdy3LMX0CKiqDCEd BjO0ZDWckKBhYVIwoMbsGRppj476USU9UlLzFWKl dcUziVpanB1xUbObFCWTwlW4xDimOJXwrYhjqxFr p8c8oYExUMwynpGzJUxus4Ztfgora0NtBbCxo3Dv lvA7EJy1SOVkEOSoy7JznQOtuFKgLEIvmfCtYDOs NEPsWZ1fkxXfdLurMQRhWU1aR2DuK2wvt41lOEfj PMNsQPWiq7G0KY5qKEQrWHDfTX1btwXojcgsaj9q OvSplAYyJWUwb9LvpCVonTgvXR7znZXhXVAfyKvw vQMpAwXfBTSnO3pjgqnxEQkfhJQhfZQuvDAei2Ym NXKgvPUhcVNnbD6vw0eoihTtixYiH7M0URRroQJf XHBhcn0= CPT Code(s) (test code = 3357) i3kcsZMcFIYtfJX8KsTvUTUim9zpr0DanBKk cGFy RHbwqDQxghRjtc11hLO5cR19RU2mSXGkTsW1WKKd syW1Hkk2ZYOgVTLekDKeN893p0rxv4xbrtDeoTR9 jSdqKTDcvhmfVxB3KSmwYCWrlbaaMXp3KSamTSFn iZL7ERBjaDFbQ9BsCZLoNT5jpua5ORO5QGepQBYr WtC6VWOtlFVrDTUgjPzvNCsxu114SPU0ZuQdFVQz ldPduVmkxR1uMdIuOUE4IWJsS1vpWGZmKQqlFAS2 RHofSVIcXBspYPX8PNpqXIT1 CLINICAL HISTORY (test code = 3356) r8nupKPuZVBqaOY5XdKrALPno7wms6R sdHBncGFy YTetgATbucFyfh00cNX9tB01KL1gMNZmOgI7CQYj nwX7Yin7FIFxDKArlWZlJ749l6qql5qlbkUcvDW0 kDmiISQtwifwNtY1GVzuNDBttkuyDBa9ISktZUOb kXN2URWfcNQoV9VhUNRiCP1ekyk9RES6YZvwIYVo PbO7EVXlbNJlSLWhwAlkURsov639JLJ0QqJlJKOu smEfkFdsaC2uGjRaBMMLBErgB37byqNamoMquBuc e09vb4CbPx3soLTpTpSzKA3xasTue0oyDGZ9 GROSS DESCRIPTION (test code = e4hyeOAqMICeyYPRRSDaI2tpgoLoRLDqpSGe [facility] [id number]) [file] ODCBBvjsdyP1e0ngfLkzn7KksRDuHH3GWt6= MICROSCOPIC DESCRIPTION (test code = m0bhhLEgBHDegZU2ZpLmLWZde8zip3 BsdHBncGFy 3371) IHupyOKauuStrs19iUU9yG55GJ1gIWIvTjU5UVHi ncQ2Vbq4PUEiCAHrsLOtM887f7uic7qzczWdtSV8 bJsxMDJqzleiVgE2KWhhMYZmnpkpOVm6RZczBACl cKL7RJZhvADgR7FpZQYaMX1umdc9WDU7ZPhjKBBc CvW3VYCkfOLoNLLkhIkfPFsgz043NVV8FuZqOQBf fzYkkAlwuP2cDwGxBAIBoV69hp2osCB6j1RcEY0d C1MyNBH8MMszDYPAAI4ERLSkt1RhOFIfsjOruz3u XFK3zApghHQci6MwLP3dgHHzmFcgeYjslGMxSJ76 CVV7zV7dICUuyJsfLwGoR3bnRMP8r6IrnQErhzDv pO94df9mnYZ6c1OxDW9wW2PiQRD7SVtjLJoaXK0x S9U3pYYoYJVxlyH2wY9ijqQfLYijy2mrWLN7 SPECIAL STUDIES (test code = 3376) u9aabZOvDGQng8dzFKQjoETmTdKaBiQi ZnRuYmpc wCGtSGhjrxLbONopk9RtJ6OqJwTmXBtjfpKkKPHf BuynwlluLKIhAOD1pxBvKADzKZtyZFCqPUffEw6n mKLwkErhOqLjALLxt5cghaYZfbufmTe0n1hcTBNk XzQ4lZXwDQvbO5wtmhOtxWHfU1XqrDVeqBw0e2mu MwJyTaL5qVCbTUtcR3ykcmBdeMUpOBPhYVw8vA66 MUTwwU2jnERsBPknhxYqJfP8FIgaACLxSyB5QFAl mSEuRCIsF8ijUFHjXAadDKEeVNrbfFPfLWM5iHfp h2M3wOQpwPMokGjbYpCaPwPaCrTGk3JoUKf5eBxn M1MeXAJyDwA6dNKbWBEwIQjqPMFcDTTelcG8ySxr zlNek91ksMCsLSTtHHLnSjSyfPsiETWwOUJUt4Ux oXzjQVA7iWq6oJmmAiauWVF3Uqy6YK5aue60oqb8 hNciTUBsvmcxZlG2SFfsCXKctbodACu8JAywMHIr fTC0NFFnkFSnF0NmVNScUR5qlwe0HTG2IUdtKZEv QbT2FYQgrDYyRMMyaYkyKIwiw716AHZ7UgCpRF7l C7Mou1M6mP2anGVdTDWfaWJyDkBvGUYfah3xjVLl CKgmu6YpNQN2nfP2zKVhpTGhUYFlQT88Xxxmo6Dg Vifca3LfV16ftEP1VVfgc4nwVN9hAkP7wnGwKIew x1imiH1sOeN2YTngDK4sMZ7oWXFzkC9fmixpZXVd BwGpjtkwFOTeuYobykQnHn4qcIldPNP8PHjdJ1nb wH7hLnV4SZksS5cbfA9hPAi5XDzjpOB4ZWAnqA4h PS4pztxiy5vvRDoqCBkiVYNlgkY1cjM6YCGbzWFi W9XtwE9hSRTbZR5wptmuq4wpCDH1QZmaJQOsYRR9 RwTiWGWtw8Fmkes5LwBbr3YsxGWwXEctE53qg027 KDCneuQcH5qfuHTtnihueDWtjardLPcbddZ9GZJd XHBsYWluXGYxXGZzMjJcbGFuZzEwMzNcaGljaFxm KNncVrBdMRGyMEhvL7pySaJqX9YnPDXrMyRqCZmb YEktyREzdNQbyUA1iC9hEM2cGXJlrNNyS9MmOCKa seLueRYsEDW5zUIruMPjVY2uYUpjvKGrb8ocj0Qm Q4mljYownWN1RK3uCPOtJMGzRCkhe5JhfR5oRacz kTSbmognJYzprrHsLEbswqebLIJuGMcpW8ubZmEh MEJesGjbXOnnj0RaIRLuGVXsLavwizUrHIw0juMg POTqfofbWNWohSotpJ5oFmZsKaWjSnteGS7wONNf K7djdYWoFZSjBDXdN6fjOqGdrO6zkXibHKhoHbRo RkVwDeQHa095ee7kIZYubTSxmfFBdLOzlH5wLXcf FTvoSFjtyATxYLaja8goAANxy0d4bBMbPHQywqQi t7hhCObaqfCeQIAxdXFtrSDmAPCmm26vGSxlwJlg qQulCTKwu0SgtAhxv7LdWvRkDXgwt8EbB76hhAXy kAGryYtnBDGgkiTcPZZxn18yt0tdQGHoClA9bVSi oIS5lDXzyBVub1NcqOuxEMOfm0emTVIgqw8dsqkz oXUwk9HzfB9wkbxePBrlyVUenyIxRUMty8m1xNSa UDKdUCUkXCrugDt4HAWdz439ib0wrnI1bZYcDBM3 YWlsYWJsZSBhcmUgZXZhbHVhdGVkXHBsYWluXGYx XGZzMjJcbGFuZzEwMzNcaGljaFxmMVxkYmNoXGYx VHrnG6ljUeKbW3XcZOTsYqTgrQZyI8yveFYbHLAp YWluXGYxXGZzMjJcbGFuZzEwMzNcaGljaFxmMVxk HyAeMKGiCUhrH6jvVtSpM8GkHIEhRhUuFKqviMKr lxjgJQpzmoBpAXoclosjNSTnMAqtB7aqScVeOQUw bOsgEFfiv8VkHQUeTOHqDevcuaEwNBf7xtZxCHJy zwmfeGKhgrtuVKhayeYxOZivrwfdZJKwFCkrY7nz [file] JyotQCF1fO== Gross assessment was performed at (test [facility] enter, code = 2777) Department of Pathology, [address] [place] [address], Technical component was performed at [facility] er, (test code = 2778) Department of Pathology, [address] [place] [address], Professional component was performed at [facility] enter, (test code = 2779) Department of Pathology, [address] [place], [place] [address], [id number] 11:55:54 Test Item Value Reference Range Interpretation Comments Case Report (test code Surgical Pathology = 104) Report Case: [id number] Authorizing Provider: Frida Hernandez, Collected: 05/22/2022 09:43 AM Ordering Location: [facility] PERIOPERATIVE Received: 05/22/2022 12:28 PM SERVICES Pathologist: Galilea Em MD Specimen: Bone, T 12 DIAGNOSIS (test code = n3qqrXVtPRPju2vhTLIwvNZ 3220) uZzEwMzNcZnRuYmpcdWMxIH tccnRmMVxlcGljOTYwMlxhb qLdOAJiiDFmQ9WfrtueYMek QB1iLI9byUxevZKzaYRiUDM tQxOqb6lwo933eHJhv0dnVS ZPxmcbqEa8tQjfO22xu7C1W wgeO93ukZEnIHL6QALrDENt bSKoJGNrORW7ZVHsdDDwP5e eBXRbAR4swnzpYOvjKQuaGL SxfMD0OWTvhRAiF8VmLJTtO HarQDNuzbc0CdEgEo5iwIGe eTcyMFxwYXJkXHBsYWluXGZ qYqPxLJ5dCPWwHgAFE13MSY PPK1CXUEptDUSpMBw9PJeve aEhUK6nATJqLfPyMQKsusJq cVVvtT9huMByuVijt5MuLLx xjkYvTkVlISKitnCeHr3pNI 7lzMeudpCaF5ssgOYhgAswt iSnLVpel1WuJFmyUZOlFE6g jHpxGYWdXD4zQBRnN1kqzJ9 amls0JmQfHBVuIbG3HQClxs E1Bnl4AIRdCAsuz9xqn1DiA GZiBYj7dSlgGyYoWDUpc7zs cyBcZmNoYXJzZXQwIEFyaWF rI094k3uyc3erujGumTP6AA HfZFD2VStuxqCmtwC0RKztl PUkKmX0PKxaywLhHUjymmId nbFtBcd1EIRjV587CMD6oNq ig5jxONB1LCEsLDKfZhUsSj 3nzJXrY102ENDjRXCHUSUid Jg9IXEzswOkkgCaaUCIw529 S964c1qmWLJwymYecYwFkzp jh3tkD979WFDmyLCabaVmNx PhOWUmiCSgzGF8FCQeHT7zi xuoDGdsCTxiVKJrbaY4NWWk eMMaP0HgSMWlLL3wbdnfZMQ 4MItzCXTkIWM5KtDyHTFaw8 Dkrhk6TqAxnh8cgd92AEN1x 4LojCbcDZY1HSW2QcSqKf4q sXAxOGLsFQ4fApVjsEGrVMK jig45mQxnQFlsCQQ4UKNirf Max5Ayv3msQhWpwyFcS7lgL 2JyZHJoZWFkXHBnYnJkcmZv e3Csz6MxfADdhVf7p3paQEW nQRPaoQzfg4uxZBA9XKLfcY TpT8glxE6jRVZkXG5cxoshp 9imHCpuXAyfRBXsfOJ9ezY7 TURlfHZwT1XxzG0lQYNzVTx xVLLoxfr9XwBgDj4glADtmW cyMFxzYmtwYWdlXHBnbmNvb nRccGduZGVjXHBsYWluXHBs YWluXGYwXGZzMjRccWxcbGF uZzEwMzNcaGljaFxmMVxkYm VpBSVwUWfsC8uyRyAfFxWtA om6XKFjdBXoGKGoTdw9RTBl gWPwOHBPwFeklC9zYSYvzMt ffL4ckVP6SDAmxuYfsROKaN 0yXQBReC9qUfV7HtAaFnT8N Sl0LCRarGJufH5= COMMENT (test code = r4skuFReNYGwuHG8YeYpLHV 3353) hu2dsm4PqvZQvvDPfSAeuxG BcukKyxc75gMK5lS08ZR4kI YLgGsX2FJSgwbI6Nax6RQAz YDAmrAPiF025p0pji2pzobQ ukJC9aAioERWktyzjZhB9ZA ymSGSsexcvEZe3BIluBHXtq UN9ULFtkDLiL3MdETSqPT4a rwg4TMU0WUcgEPNoSgJ2RYL jwTDpXVNqgYjkMUkqh927KS C3QaYbQVFdbbZcrYzfsJ3jH wJrQCCJzlG1qLlfLAOgvDvc czSyg6t6qLKcKCicmoUoMBr zv8Nrnyniv9AwHbPlr2Tfka O6KBf4MDMgMJBtk9CubPIng FDaXMTdqbBmHKOhIPWpNS9n taZqvUdyBOMaEG5bR3UgQ1p sr35fBMkwWYJmUEZpa7H1VV 6kGBHnKGOrSR0yzwQksruym s5lNvFzfJReZWRdv8BzaHOh zGgjLH6kwRWtZSPbnMiieLL rGiDpXNLdV1ymkjnxLNsokO FlzTTyxOYwi9OaHEBegYVnn WOssX2yc4magcGysrMqJ5Q8 ZWRccGFyXHBhcn0= CPT Code(s) (test code q3owqDToSYTgsOA2FjBpEDS = 3357) sx8cze1VjgQSmuDQqCLsooZ QwxrJsuu65jBL7rU48QI1iK XTfMhU9RGTdaaV3Wnx8VOMx OAStyWAaC552b7ndt4dfebU vlZG3dQmzHJPgoemsBuF1OA emLWCbcrdoXVr7ZEmeHCBcw TR4WDZhvDNgP8IkMMXiFJ3a uch1YRT8AQjdZRMoPdR3LEV hePPaVZZypKkvQVrto799IO E8EtDyOYGeabMpwSkrqS6yZ uMeAZQ1RXNxC7atWPHbMFzn QCS7BOexTNTrCYgyAOH8CHt wYXJ9 CLINICAL HISTORY (test j1iwnWNyBMZmtQU5MwPnKUY code = 3356) xs9bdi7PyjYLrpVVgWBbboW PkbjIrhp39eNH0kI36NS7gJ TEhOpH6NFYvtcY6Iah2VUDo NWUfuXMzX235n4ytu6ufruQ cjHU7gKujPWQqngtqGoR1WC egWQBeouylFSr2TTbvBVElo BM9DPAifVAhJ8IpDGDbEA5s tur9XBK3DEmxTPZcWrE0YRO bxQShFAVrvSrePCohs994BS N3IyFbEJHoqkSvxLuoiK5zW wAlWUKVVGfwR83lzjLwmjAe iOcaz28iq9GxMr0piBTsFzK xYO7vauFrq3exUFN9 GROSS DESCRIPTION g1aleJBzWWLcgQHZLZOhH9m (test code = euxFoZCFdvCFbH8JrfwiuIL [id number]) ctTL3bNI0tzOtooIAyqXJrP V8QBHFnFjDgOTQbhERwclUa KyMsWTHqgVRlaWF2CUOwFD8 akajaWRelGVthZQGstlI8TY UtaKUbA5AoHHBaJD1wpercL PF3DRvcsN6yznYWRsyvFn0c dHRibHtcZjFcZmNoYXJzZXQ qXBSlsKwbVMSjXWm8qT7JRs idDVN3SXOXRezbYZJsKQ3Ny 2waNVMbkCYcKGA2GViquZTs JFGaNHWvWFv0HOKvNIjisVD dLM1cnCwlEfpaoHvxx2NieC BcXGlkIDUxMDAyIFxcZGIgI D2YWpFuUNE0NyT7KmTjULh7 NSy9NJ9DPaSqMISaENL6NJI 6VxWnELn0OAxeTW3ICPP3Cr G6FsR7ThF2PKG2LyCgTAXoM iBcXGYgQXJpYWwgXFxmbCBc FZ5yuVqdzUQncnSTGlSLm22 uTkxqBEMbHWubROJnU53mg5 XNl5JbBH8XTQh5etBlyipvb L9jEELcfkJsGIuznQGhC0yu ZnMyMCBSZWNlaXZlZCBpbiB nr6YlMMoodzQsWAErhULrRC dpdGggdGhlIHBhdGllbnQnc cVrLH3kKNGuF7Zjr6Nhm05t bnVtYmVyIGFuZCAiVDEyIGJ bzvJpCQXjZKFnUUHyoh78NW obk8kzFNRhQORrK7FpTFImD GWvb17aCBFswrOqWP1yQNX8 pwtsSoN5iRL9exEvOktsO75 fpY5aC5WnFDIjc8IlfXYlM1 YoDYY4WMXnSyJitNDmtpAmr GEmXRKspgoyw0lnC7rxPWNn JDL7Ht3jhTEuYVAydjZ4f0P vCIyeEQQmTAYalRbew2reHz BsaWdodCBkZWNhbGNpZmljY KRdt86nGHufbaAjYZprcpTf UGlsYXIgQXJndWVsbGVzLCB UVQyfZNAgBHOAW8KvFZbtiU kfrR9eEPHgR92nj0IRd8OkH HLjZUnfp5fnrNyzr8NawVCb IUgpPWHfeHBgBQabpL3qWlQ da4ejsPc4QEcoosO6ZNSxab 6YKafhdZ2cHlEzi3yhpBx4M FGSLlzqnxU1i8esgXkhq8Ml mKLoRP0PJf6= MICROSCOPIC i1xhmQRgTTWzyDG3NcKpFMB DESCRIPTION (test code to9ecw3GfmNGmyHYuBCbufX = 3374) RlmpNcys80yGX0jD80KA7oU YSmYgC8DVHrhwN6Xsy8BBPt FXAtzPDpL289b6fsa3enclN iuVO0kRmrFEKybicpBsU5LV lcXEEaihkdBPj2DWqiZADlp YP6IUOmoJYoN9QeLFMpLH7o eeo3DEV3JJokOIIrWmC0JGH moWHtIEMmzDikJUqbm285GH B3YeDjIFShgrQvbZrnkE1wY zRzGMWWnM06jd3qtBZ8q2Ec MF0zI8SuFLE6SPxbERRUVS5 WYUFyp0InQUZvhaVddy3qFN N7bBozfWTbt7CeOJ7vjHAal EtgkOmdoTUnGH86BBN6nP7t GLKdhNswJaOcK6fqGJL0f3F xqSGujgOjhW57mi2sfXS9b2 QuHJ9nO9PrVYG6UFsuCGjqJ W2rV0U9jZXyEIGxlrX1wA3w mnIgFVhtd1obIQQ9 SPECIAL STUDIES (test x3uknHQlIKVly0iiVVIadWE code = 337) uZzEwMzNcZnRuYmpcdWMxIH srleDnKLwxy2MjF6KdEaJfL FxhbnNpXGRlZmxhbmcxMDMz ZZR1baOrFVKnDDosWLClWWy bOf7qxIZlaRwrYvNgJIYxa4 hmurJVylicwDo2w8tsVYDoM aZ5kBOiTMsyF0pefhMrjTJy C4NhbVNjjNi8u4vfHsTwXsY 4oPUhMCjqA6bnacQvmGDvDW MvLPw8wO49UDBdeY7gtYGiW SkjrxStPqR5NDkvAGEbZmD5 TUXdlWFlGRZsC6jgMAVzQBe cOXKoPCbjjEGkOJV0sAytq3 N8bKBoyGKmyQaeAyXxEsMnA lBRp7KmHYe0qAnrJ0LhMGZf NxU9mTIfLXGcVNlfWJKlCUS wtvR5eAguwyFjg32tyHIfXJ YwXGZzMjBcbGkwXHJpMCBDb 5WfkZmdBMV6yIb9vJmeCeau BXP3Edo1GF5exr77bti2tCr vAGErnzfqSmK3XZycVPJtfy xnOKz1JDjsRYOqqSJ3RMAct PUeZ6SbXIAhNH7rjgc0RQQ5 YCyvCMGfPyT7GBIohMJsFIT wgSteZMzdi682MXT0WzYiRQ 2lI1Hhu2J1zM4kvWMhTCMdm KOaLkZpFDSnpi6yzUIfJIkl m3RvXSB7dwE1vGYbiDSdEZZ iXA48Haxnt5KbQvnjn1LnK6 6xgEL1EAgmk4maCZ1gPzC8k bEhLZuna5kidC3wGeP8EQnt CU1yOA9tLOKwqS9avbtoSWC nYnJkcmhlYWRccGdicmRyZm 8icHowQOH6ANglI5cymV7cI yU6EYwxK5oeqT4aVVs4GAgg cXZ1YNZxjA9zZI5hbddzg2f xHXmiTTmiWCKsjlU8kiG6NG XtzOKsM8PxbG8ePSOtAJ3ut ivrb4srTRS8EGirALJpTBR3 EaPfHFUsk7Eggiw5QuNto5T cwSShQSorV61jp773VNKtbp CdE7sisSZiwbbanYZywronQ VwqalC5DYUfUTAwHPfhOSLj XGZzMjJcbGFuZzEwMzNcaGl jaFxmMVxkYmNoXGYxXGxvY2 aoOjKqJ0VzKDHiAtFpLSzwE NgdzNBehIYkdFN1mJ3bJG3u CRVfuLOhX0HfUWBpxsSsgEX hVDF8jLAqvXKjZS5fHJnniQ Zrb8nsc9VbS9qlyDqyuRN3H Q5rKBCaWDTvLGxuc6FacH6w LlxwbGFpblxmMVxmczIyXGx ruishLLTaHGfpR2uxTvTrXG PmgDzqEJrrj4HnULDnXTZaL uyafrAkAZi0xvIqPQNulnmu QBHoeGghrG9zPnXrPnPeBir iNT7tFDLkW0zpbSZzIZCyOX CcU0xvIvGdtS4iuHnkOEcdL oJhSeXmHvVWl112vt4gNZDd dSWgsvYQvCEnnP2zLRzlAJr cWXldfLHhPWrmq3btNTVos1 b0nRNhDBMfshShe4aaHGmdy uIyYPOakWFuvCAePYZhe99p OVfvfVmtzUcsOISqc1NmyZm fw6StCuKsPEadh0LvA88orA JvbCBzbGlkZXMgcnVuIGFsb 82jd4vlWSJqCtD6cZNamPM8 sFDhyXDhp2NdvHerZCQek9b sMRZuup6jqvrivEHuu0TltD 5pbmcuIEludGVybmFsIHBvc 9y2tZUcPUDoJCJkCCkhjOh7 WUWxc690gv5anhM2uAZcEAQ 2YWlsYWJsZSBhcmUgZXZhbH VhdGVkXHBsYWluXGYxXGZzM jJcbGFuZzEwMzNcaGljaFxm JOgtFbHrHLQvLLcwN7axKeC iI3YbYQRmTfNwaHYoG7wirF FyXHBsYWluXGYxXGZzMjJcb GFuZzEwMzNcaGljaFxmMVxk BdSpBVCbVJzhR8cjHeZrG5C yXGZzMjIgIFxwbGFpblxmMV xmczIyXGxhbmcxMDMzXGhpY 5jfFmDsJYOzhZgrPSiyh8Oy WYSfTESnEfxrayGuPNf1ysE oXHBhclxwbGFpblxmMVxmcz JvOItrbjpfPJOjFNrjD7dbE zAbZTKlhOjwPJump5QvJPOo BLFfSsxlmmUcWZbblCRzq7r hz9CxX0daqPvjnGF2PTBqA7 fbhUIliGF0MJL7nW4xRZbus sHsVTIhu5ByVWFbBDDmKoU3 wV2cBDD3GuMOrIaoWCUcAAu uXGYxXGZzMjJcbGFuZzEwMz NcaGljaFxmMVxkYmNoXGYxX DpiQ2myOuEoL4SuQJZtJhYz eHzsQMgsTMk9KfagjRBdkuy mMVxmczIyXGxhbmcxMDMzXG edD2fnLcHnZQSejOtsBPetw 2NoXGYxXGNmMlxmczIyIHMg BBScfGTwhYWUNT21CRVrAGD bkGuouM1jsCFFXRWmswR2u8 A7GHoyLXRgAZr2SWyjdnNjL FShfE3yDOQwXS7dACh3vrPl RUBnz4KuAB3mSDVpmCJxOWJ 1KNUgh6QfP1Auk1SjEUTtDA Udpr3frgCbOqOZoQWzTKXjk c94UWBfWM1nW7kpTYOjPBJs ryBvrPVrj9ArAEQuxTT3nRW fBN8VDxKTr14aUQSbWHQLxw BvEVClaNxbtGA8ikY4xG0wX iBUaGUgRkRBIGhhcyBkZXRl kj6yirJhAEGxPEEne4TprQV wjVGwxaNdI3Fag6AcGDQelj 97IXmqiJAcfa34QG4hS8Tik 6IxyD1fQMncPGGub6KluYXb uHAsJPEes6IzR0nunqtrLZf rwJHxnZ1cBYPuBLh7VSQhl9 XwPKPmc6GfKpRjjoMbMXVdG ELqYAQwcI45VPE6iTputAak rdViWJ4sSYAehgDuXFThAIV hcL9jWTxuiaTrYFShrbP5z6 I2DGtaWEGdazCeClwiYNU4x wIkcdB9iGIuQ9kyfqyzRXrp IEUau7SwpI1gbWOLlTMmk9V ycMGizZURqCOkMQ2gpoQaSI 0sVLC6VEuuVULOANYlMFnqU IZqEKR8ODkgIhauMYR9tuDh QUZeq2TpZKvpS1cvI60duFi dpOs6bWOabTuwpYJvzDNoZX HddxS2n4I5XMOkh4IhyjssZ HBsYWluXGYyXGZzMjJcbGFu ZzEwMzNcaGljaFxmMlxkYmN bPZNiYSthA9rnBxVbDxVnGu roRRW9aM== Gross assessment was [facility] performed at ([facility], code = 2777) Department of Pathology, [address] [place] [address], Technical component [facility] was performed at ([facility], code = 2778) Department of Pathology, [address] [place] [address], Professional component [facility] was performed at ([facility], code = 2779) Department of Pathology, [address] [place] [address], [facility] [id number] 11:55:54 Test Item Value Reference Range Interpretation Comments Case Report (test code Surgical Pathology = 104) Report Case: [id number] Authorizing Provider: Frida Hernandez, Collected: 05/22/2022 09:43 AM Ordering Location: [facility] PERI[facility] Received: 05/22/2022 12:28 PM SERVICES Pathologist: Galilea Em MD Specimen: Bone, T 12 DIAGNOSIS (test code = [id number]) uZzEwMzNcZnRuYmpcdWMxIH tccnRmMVxlcGljOTYwMlxhb bHzSOIkeALmW9NifesvBMen XR1rWE4jiOsmkGXdvEXcASN bRtHnv4jmj915wRFyu1frFI MPrikqfJh9rMofN79mk1R0T mqhU47anPApAQZ2HUWvFRPy wVTpMUZmYQR6PLIquMVoR0d jNPVcBH3owkwzNJaqBXlbDH UlmYK6CHQbqILbX9RsXHFuN BhyAYYhvxk2CnAiUz0kpOLh eTcyMFxwYXJkXHBsYWluXGZ cIuRhNY9uAUBaPzAYQ92VII UGJ3VHLKovXNPpAPy4HHqhq zMzCB5aTMXaYoSvQIIqmjYa iWQlqE9prJCugSmjx9YxWOw wqeEvKcPmPGSoqyRyXu4wAU 1acMlhlxLvJ9nehXJicYpmw tGoRYvhr5VqFXkuQPZbCD2i jRptCJUiWI9yZQBdF5wklD0 patj0GwDoOAFgCuK6BWZjsy T0Ins9JGKiXZxjk4jsn7ZaG JApUTb3uJxoCxSuNIUfr2ru cyBcZmNoYXJzZXQwIEFyaWF hP742m0owu6thdjJhqFU0AH IpQXL7DBvffsUycbU6XTxrc OVpQiX2OIuwqcDdAMfvmnIz ijBpMpr3TKRgN115CEM1fMc vs2ptDAR9PIZrVANgKrMzWq 8cxIHcM860JFZrGCZTOQLjs Uw6QUYqwgNxkcFrhGCPa534 Z837j8sxAHKxvnVuyJaPkbv zp1vqI085UXRcuBZtftRfWy IhAJVmxVPlkQR1EENgWJ1xg zoaOByoQXqdISZljuR9SZXv vEYhT2NpKBDyXU7ajgjbWTB 2JFqtXDWlTAM8XrCkUSJeo4 Stnhm3MqElev2ndv30NFQ4r 1AagVjuQGC6FQE5DuQtLe1p qTWqZMOtXQ7kUoFfnNWbTQG gvc72kBamZQedDGK0ZSLvqv Zir3Nhc0uvXxOymwYyC6zpK 2JyZHJoZWFkXHBnYnJkcmZv m4Qps2YtgLGpeOw4q0skBBJ dIYNpqIitj8asFPP6RSSlsM BeR1iftG9xRCGoKU4sduxex 3joSNelQFjuHOXhnXL0jbG6 QKOweVBmH0WreW7cBYEyBTc gANMeadr9HfLvXe8saXLhgF cyMFxzYmtwYWdlXHBnbmNvb nRccGduZGVjXHBsYWluXHBs YWluXGYwXGZzMjRccWxcbGF uZzEwMzNcaGljaFxmMVxkYm HdSWShURmtW4kdVvXhUqMjM ax2KPZouYSaGOWlYcn8JDFd lLRfEGNHmUrzeB5nQURtsOg yyZ3pcLS7OCKwklVptDBDbY 5dDBCJrO1gJgG5DnYgCiO6E Vr5JCUaaRJinC8= COMMENT (test code = p3tpoYIlPPFfwHF8AkRpAGE 3354) im1nsz1UwdVXtuZItUJmzoV IzogFvdj08dKT0kH56LU6lM WSiEvU2CONfwuK3Icx3GVNi TMOhoVYyV611g4pfd4qzdmA rmZO8wLazQRBywjyxGcQ9WW ntNMKdptubOKr0VSjtNZZhm TC9FTDfoGRiB1AsGGLxKY0x mbo3ODG8RGqaKEFmEfB6EKQ hkBVyBKHlyCfaVSilv726SZ R2LuOoYUWtsgHibKktiH4iQ sWiPGLVxmG4vXyuKUMqiJvr usLpx0z5sALvJHeswxZxNOs sr8Tcrtrjj1CvNtOde1Esmv B7JFg1GUGfQDRoi9DrzGQlb UCsCFRxtoRfYHVtWCNsBX8y euEufAzbANPzXU8uK5QzA8v me73lHFkkZGEjCQXvo6Q8TP 4mXQJeDWLdIS1umdBeeonoj b2gZyIbvQHeRYLas8NqoHVs cWkxWP9glTOcHKByfUojhSR wOcMvFYAqM7thojdzONbcuO IfaTRcjIRai8HnZOViiDQfm JLkhD1ci2xaqeJobvKdN3O7 ZWRccGFyXHBhcn0= CPT Code(s) (test code u8hkcDUqAEMcyVN8StSiTRO = 3357) ww2guo7YfyIKrnACrUHhxoK AvinUbns79oFN6sB17VF4tD OAnKsB4FRPdsmA5Dgr4UNMh VEXlzZPdX901e9wrq7naljG btKI6zAqiFWAeftqzQuZ6MC sdVSGepjgrCKp1ADyxKDHro KR3LLEdkAFkM5VqDOAdND4f tkk1OLZ7TGxgMIAeAzI1GNP epDHaAVCgxDjlTMhff355PZ M9XoWoKRIonnWrhPqhsH8oU dVkSOO1NSSpI0vqVCUyRNmi UGD8LCvcYQHhVShtABJ4YRr wYXJ9 CLINICAL HISTORY (test c8mhhWEnAWQgtJT1NnPcVLY code = 3356) ib1dny9MnvZXebBHtBTtcoN ZtbmHgic43mHK6mM22JN2qT ETgHkZ3GIIdntR5Jjl8QBNz YFGwoVRpF435k4vqh3tmusY naDM0tBxuUGAnuaobTkF7LQ dfEKUerizuYSo4BWdvXQDdz MW7LJWrgDTxD3FoPOKnVV3n sdn0ABE5QEzgHMIcCsV9YNC ftEImLQLjdVpyKVsxh003RK Q9HiXmTKRubrJfqDmlpC9nE uQiDWGUCBirW72lukDgdeIo nQlgb22tz1XsNs5vnHSqPyA yJS2tayLzh5bnHZH4 GROSS DESCRIPTION x7abhCTjEGMofKLDZBZoH5n (test code = vebIxJMKrlIGkR3QbkuigEO [id number]) mrQI7sFW3xaKfmxJDzdBOcP E8OIILqFrRaDIExmOSsqvJh UnLaBAPstOJfhKF6LBQgKO4 vgyabQOiqNNbwCBKbgtB1VW PibYFrL8SqVLWbSC8hybsuG ZW7CBylcA6ipiTJDvonIf2c dHRibHtcZjFcZmNoYXJzZXQ fYLDjtVdkTJCdOXk7yJ9JIi ptHUC1MDZMJmyaVAOgMU9Pi 6mcTTKwzQLpIWZ7OCdauDCk ZKLdSFTbSCv3WJDaGMqnuFH fRE7hzGaiKdbraJoau1MgsD BcXGlkIDUxMDAyIFxcZGIgI G9QGtSzYZX9SkA3OcRdHOo3 ANy1FU4ZXeYqETRlDCJ3LDQ 0XwWtZNy9DQjdAG4AUHC6Hq Q2RqW4QoW4FVH0HxYeKBQyK iBcXGYgQXJpYWwgXFxmbCBc OK2ukUnugGIshfJZUxYPd72 iIzukRIZcXCixVZBhR91jj2 KRr2XmBX8RKPc3ieSbvfpcd F6tXAFshgBxTCepgHZhK2nu ZnMyMCBSZWNlaXZlZCBpbiB ll3OhFRtaxmEgWBYdnTZePZ dpdGggdGhlIHBhdGllbnQnc lJxYZ0lRXKwM7Hmf1Kkl31v bnVtYmVyIGFuZCAiVDEyIGJ xytRwSRUfTJBzABVeqo64OR ecf9akELKtYGTsV4PyZHImD KHmc83fZRZxunEtFD8vQOM0 ckwnVjQ1dMF0bbRsWnruI20 twM5xM7MlVKSni1UidWLjE7 AkJOT4AMFgPtNmoJWggsFbv HGlUMRgwenol6whK6evCVMe YWY3Eo3evTRjCYIapoI3t4A oZWchOVZtXBJqdYdcl3brIx BsaWdodCBkZWNhbGNpZmljY RVch45fGWltbbJwHIolpzKy UGlsYXIgQXJndWVsbGVzLCB TRIqkJMYfFQFTV8AhTIevlD bklC8kCMSgP71go6MXv7GbW DXmKSwnz8etxJnpf7VjgTRn JOplMQRbqAAhMIwijB8mGoR nk9ijpGo8GTzarwM1GLAdmj 1WIgmmiW9pLoMkl7xvcJr1U YDPXgnfqyD6h0fhzEdkd9Ex fBIkJL5MOu1= MICROSCOPIC w3newKGiSQFdkEU2PgHrOLV DESCRIPTION (test code zk1dsl9DkrVGcgFSmEIyujC = 3371) DtvuYcuv53pXF6iG10XE7pJ GJoXgS6YOVjxnR6Acr3GGOe MGCbnWXhR255x9bwy2vthfX chME1hScdAXCmtbbeLxD0QK acDSUvrcqmTTt6BGtuVBZwl ZC0WCGdsAIgO2HiHPJrMU3s aps4AJO8GShiTQKpAfG5BSS nnGClXLCgeTdvZAmep589LL Y8QsPyPXIdvaBbwZhahU7qI tHeRZGUcP34xq4dsND1f7Mj GO9iP1RlHRW9LUwnFVOTGY8 LSGAph6MiBETabcItxl6jKK W5kXzxtGMev0PfOT4ewPWvc GhgxAlucLEeLG15WXR9aT8t AUUatSlyQbCiE8stBKD1l9X vzJHytjAqoR95eo7bvYM0e1 NuTK2qE9AtTOB8DAsdCPqrD H2hY6L9wKFtFAReouR8hP6s rcEzXBhsr8siZFU2 SPECIAL STUDIES (test e1zujDYsTASgy8lvZYOfjAH code = 5227) uZzEwMzNcZnRuYmpcdWMxIH sccrAoIGbfz7WyG9JfGgTvS FxhbnNpXGRlZmxhbmcxMDMz XFJ2gjWzNDYeDJxsFJUzHUa oSq9ebQGsjNmnHeIdZGUmt4 oyhcGAiwcsuLl6o5smMVLlU pX3aETnTNthU0ofzmCloRKl W9CggDEffOi9y9ekLcZmWlA 6nXPsMZkdM8gezzNgmQFuGH BoXGm7eD69MZDigO1kuETpD MycckXwTmM4IRpqTOFtMeK8 GKLmzRYnMTCjZ9noAPYgYUa zLDUuXKbdpTPmSDC6yTntv0 N1zINnaZKzuMoiWlZlXzWqG pXBo8AoFRb4lOppT6EkAGCd DmR5dKLbQIRtYUrkQWPeDDV qybD4kXfifzYja39emDEcSY YwXGZzMjBcbGkwXHJpMCBDb 4MkbAytGWH5aNu1mYizWpbt MDL4Nmw1MD0biv24pdt7nUn hDMIcgbowClB1IIdpVDYowl uqHDw5APliXFGbtKU4RIRul FIvB3KyNGPpSB3wvhp7QBQ3 KSxiMNTxOrE7IDNtxIEpUVZ asFlzBQzdf722HUS1UdQtZJ 1wM0Gha5K0wC4vkROyTTNug BUgKhPvCIDvzl1zsVOvKPdb l2ZrGDN0drO8jMGzxIUrZGJ zKD31Fbhca1EyXoipk4ZgB9 1qaFS3YDehq0egIE3lNhX3a iTqNEijt7ddhN7bNwD2CYlp DG9lAV3zGHIcqK9whcthKYG nYnJkcmhlYWRccGdicmRyZm 9xxDaiGVZ6MZlpI2hvlO1yB tP9FNvhU7rwlC7xWDz4DZkw dMD3JZUyxD9qHZ4mivsko8g wAIjrCSkmXFDrqcY4glZ5DL MnkCGdT2HxmV7bVFNoWZ5er xsnh4yjRCJ0XBlbDVGwPZH9 YqZkCHJtz6Nuslk7TmHkb5E rvBQlXPmsP06uu450HXDbjs KsA5rzeSIlpebjkPKployoF RxzfcE9ZSRiZJEfZYmuWAGm XGZzMjJcbGFuZzEwMzNcaGl jaFxmMVxkYmNoXGYxXGxvY2 pgInOyL9OwBDAlFyBjDUczW QvygDFgbDUayGF4xD5vGK0i KMYofINjB7BoXTMpglBdmIT mDMA3jVFflXGpMH9fNRvykO Cvn0agl1FyM0nbqTclhXH6E A8yUETfLAUxZUdoo9YdjI1n LlxwbGFpblxmMVxmczIyXGx cqbxlQZUcZMvhS5baYsMeZI UwmXfkJWtbd6OtQALoCOClX kgzguAgPPx2muGeVBLqmxfd MOWulAmyuE3jJvYaIpSjFcr sGB6bXWRbF4cxoSJnAZArEZ PdX2cyFvSyhL5arYaiOSetH pKgNsEuYuSOb919ol2gGCNr cFDhzyZZbGJafR9jYYhtNSd yPTfuvOLlXShvb7krEKIhn2 o6oJVlKWImtlDkk6hhXLdeh xIvXDBosJPlmDGpBKFan32y DTuwvQubeXkqPCAxp5ItuQf vc4GqQjRyWCtdm7LsB36szH JvbCBzbGlkZXMgcnVuIGFsb 92le1gvAWCzQwW0sZYvdNQ2 kSLjpYZwb5IncBbkMGJyp1o pVVAvvo2misxkaEJcu3JgdV 5pbmcuIEludGVybmFsIHBvc 0q2kIFcASFgUVZaDGdqqGd1 YKUct624bj9uomV2kKLzJXS 2YWlsYWJsZSBhcmUgZXZhbH VhdGVkXHBsYWluXGYxXGZzM jJcbGFuZzEwMzNcaGljaFxm HNgkLqKpCPBxAFloI0ujFuI rQ0ByLBEtZuMffPSdF7ianD FyXHBsYWluXGYxXGZzMjJcb GFuZzEwMzNcaGljaFxmMVxk ExVpBGYmQEkbY5nzVlEtU6Q yXGZzMjIgIFxwbGFpblxmMV xmczIyXGxhbmcxMDMzXGhpY 4oyGnHyVTPleCdlNTdyu4Oz AEMmNGAmOrykzlEjOTp0chC oXHBhclxwbGFpblxmMVxmcz PrZNeyfcbkJAJhGKdtP7feL jXbNKOnkJvaJTetv8DlVFVj VEHmBcxzdtDrDIerhZHxr2v ro8XgC9yxgDtdtVG1PSEcG8 pnoBVybFD5HOK8bT7pNFyex kPmXJWpf2XeJCMrGCUhJbW4 mG0cBAL2LpAXnVopIUWfMNa uXGYxXGZzMjJcbGFuZzEwMz NcaGljaFxmMVxkYmNoXGYxX MezA3vgXaAdB9VbUMTtFwDu oWlnMGkxCOk8GkbrhDXffqx mMVxmczIyXGxhbmcxMDMzXG mwZ3jaNpNcCLIywDzmGZqsc 2NoXGYxXGNmMlxmczIyIHMg KHCuhXLsgLYMKV06TZCiAUT vfYtemP2oxDPKMKEzakM6d5 K0LTgfLXSjMGa5IYbzwxCfO XJzpT4zOXAiSH6tOLp5pnUv WAEse7CzTN0sYWTlbAUrRTV 0YMTvk7NvE3Rjr7JyLFYhHD Wsld4dlfNzEqGIaPOfIGLqf p26OGQsIJ3iF3mxJMPdABUe yhIcuEMwk5JlVFWkgYO7aDK vFY9UEbWIx18rKBXcHAGFnm VvUWThmUivlZF9hjP5eS7gI iBUaGUgRkRBIGhhcyBkZXRl mz3stxKxTSIrYAYyr3PryNQ qtFEitoBaA2Bwk9NfWXJcwu 72MFqndKLxvm13LH0nM2Qbu 3GjqB0lZByxCCQgd3SynOSf iNCiXLHnp3TiP5nevpylRGd hiIZmkN6cWOMzNCv5OGQlp3 PxFMBca9MqOrJkylRhAMKpF VGxPFBiqJ18FNK0jHpigSbd apTsGU7iVAYtkdLjGPYnWFG pyA4mHIkjbmOhBDDpdfF0e8 O9AJtpKSMqssUfOrhxYFE8w xLzbaW5iNVuN2dbqjnaWUsg WUGbd2GfwX3iyCLPxLUnz4E ojIVqtAJEwFNdWO0gxhXpBG 3aVWF0FEiqSPFNOYDaSBerJ BWfLBA4UGfkSimpEQA4hlNd UCReg8CiQWvpI2rzL64cwLy gaPg4sBBqtUfqpJHblGKcXU PksqH3v2U1VCDvw3ZlkqhpA HBsYWluXGYyXGZzMjJcbGFu ZzEwMzNcaGljaFxmMlxkYmN jQRUkNQerQ4klVaYqXvTxPx rmHLQ3lJ== Gross assessment was [facility] performed at ([facility], code = 2777) Department of Pathology, [address] [place] [address], Technical component [facility] was performed at ([facility], code = 2778) Department of Pathology, [address] [place] [address], Professional component [facility] was performed at ([facility], code = 2779) Department of Pathology, [address] [place] [address], [facility] [id number] 11:55:54 Test Item Value Reference Range Interpretation Comments Case Report (test code Surgical Pathology = 104) Report Case: [id number] Authorizing Provider: Frida Hernandez, Collected: 05/22/2022 09:43 AM Ordering Location: [facility] Received: 05/22/2022 12:28 PM SERVICES Pathologist: Galilea Em MD Specimen: Bone, T 12 DIAGNOSIS (test code = [id number] 3220) uZzEwMzNcZnRuYmpcdWMxIH tccnRmMVxlcGljOTYwMlxhb fDnDWNmxVOdA7FbmgnrZPnq XQ3bQP7esWerbSCmdEGkEPH tBwPaj2bmu515oVQph0ymUO UUoqspbXu5tViaK01wb6Y6D oquE03fnUVcFHP5CVAgOIMa qHHfFRBfXGI9ADQoyEGeN1o eMITlIT5qgmxvQXqxFCgzNK UvwZX5VBHwiZIxK6DsGSZoD DgwGISnbmt0InRkHy4rkHHp eTcyMFxwYXJkXHBsYWluXGZ mYhFqFG5yNNEuXeRAP86EZM ZHY4LWTEnjDSYgQZc6IRebh vRgUX7kSPRvOjXdMWWnpgPt mGFqpE2frUXwfXofo5JnBUe jagFvGdQsAKGnrrHqLg6kKU 0ajAkljuWdN2uqlCNjjDdnv kDrKGirj9QfGXyjREDyVH4l yLwzYLAlHM3vGYAzA4gkpM6 zkvk8NoLxBTXtQlR6ZUDjss M4Udv3PNSeFBzmf9snc8LeL OAiTXd4jJyfOgQgUGInh1ny cyBcZmNoYXJzZXQwIEFyaWF mE403n0fpt2yflfBpuLB0FZ ZkFXY1HOlaflCbqlO9IBqvy CHjVtN9LSysvcOyNFylqhLk knGmSku5NHDtI305YQM5eZq bv6faSVQ0WMQtIWRlRoDoOs 2feSQqS985FHFwAQOLJVRxj Es6RMPdtaAhndOitNTYx570 A324c9gvTBDbhiMlgCuGhlq gs9ctU123UZSnhLCrogFlVf WqVPXspPHovZL9CTNeDC4dh ywaEPqgYVqxIJHdotZ3YOZj nRXnY6OjSWPtYM1bvwfrNHH 9KFhaSHRuCQH4XaEbNFIaf5 Izfkh3JqXnqd6mel26YJO8o 3SzqYqeNRW7QQF8BiCtBu1z cPVcOHAmLD8dDjEfzBFsSNF wut77iCmeKTsoGIK0ARRgoj Nwh3Rxe0pkIyPkwqPyG0dvZ 2JyZHJoZWFkXHBnYnJkcmZv f1Skx6LppYIobTo6p4opYPV oTVJvvHeeq0qwDIP3FWYieU WxQ9qpkO3oTOHkVG2ffcimi 2poEBjgZAmaAMQqoUS4htP8 FURyvPBeP7NhfV6rEOIjFLd bPWBzvpy2DsXiBo6ocMMdqD cyMFxzYmtwYWdlXHBnbmNvb nRccGduZGVjXHBsYWluXHBs YWluXGYwXGZzMjRccWxcbGF uZzEwMzNcaGljaFxmMVxkYm DpUNAdRWtoN5lkQgQxTtIwE qj7TQMmsRUmFEFkZqg5ODIy jFLtLZTErQujrE0xDWKoqHe bhP4hgFN8YEUrzsVddBTMfH 9tGIEKeX5sKeN0CmIrRxO3T Fl2VXLmjFJfdU4= COMMENT (test code = f7lsoYYsNZIfbES4IuWnAOG 335) dn9ycw9HxiVAekSTjWHhcrK HhzjJktu87iSI5cW60YL5oM HEgSgU4RONlalH0Ryr9GSOb XCOgrZUsU107k8cxa6usmjB fqLV7vJiyJAPzunkhLaZ3SM xjGFPdhacwDYs6VRjyJHSuc AU1KANdfBPyU9GeIHCsSQ8g obn9HCK6VVweATQkUuC5AQW tkORzUFNtlNdtUYsjh593BP O4DsFjNMDpthJxaBfdoG8oZ lOcWBAIxxX9nJlhGYBvmAtj hgBvs7c7xJQrGKishlEfZPm mn1Vxhmalm2RhJzUwg9Nkjr C9TCl6CUZmQIObi7KqaRFgb DFhKJBwmpOqFGKmDKDzDZ2z ksGcnGgtIXWhLR1yK3JoJ9x yc83gOWeuIKKwVFHcy2M5QY 1jOQFvJIJqXY4ucsMgeruav d1pBxOjfXEyCXBgk4HybOZy fMrbMH4hdKBfDXGcyHfimWC rHbCvHHLoI5ewjjadTMexxS ZjtLWydHKmc2WqBOKyaOAzx WYyoY5sj4qvcgCewlQgI0S5 ZWRccGFyXHBhcn0= CPT Code(s) (test code v9pmgTFfGFMqqQC8YpCfOLH = 3357) go6gpw0KrtFQqpUQfRBcyvZ ViihOjut95eXK5iN90ES2aT MMhSsK9BZGgkgT2Wop0HFZz ZTSchSQsS272g1gah4zcghF myLA8oNuoINUkcwypXjQ6GN jyWRSajetiLEs3PBlxIJPsz VG4JDUpyMYhQ3FdKCZdRV7t evq7APG2WCftHBWeHpI9LTD uuBUcAGSmsTvlCPiyr426GK S4KyDeZAYpsnFlpYhswA5gS wSmFTF4GLAuJ0trHRLtAEpu DCS8HGtvUPMiTNcpSUN3SLg wYXJ9 CLINICAL HISTORY (test k4rcjKIuDDRjxIK0YpOkZBM code = 3356) qf8mom9WvfAMvcIRrHFieuY XdunLfex28dJR9gZ32VH1qL HYhCxJ7YUPzgbR0Cgh3UUSw GYIlcMQfB414t2aau2jdzkA neQN2qDepAGNbevdqCjN1FE bjUXRlzldhDNb1HNpaUYLmo IF0BIXlrHNfX3BwIHYhNI8d vde6XRE3RQuhJGUjKbM3VUP mrTMnXQRiyLfxIClua375DC O7KlDvASCeswHmeSxwzL3oI xTdNQPAFNluY49lwaMaqhIc tZsbi42ma4BrYi5ikXVzAtN cSN4xtzCqd2djJWR9 GROSS DESCRIPTION z2mnsHApLTPobMYFPIYgC2w (test code = ewnBfOZYtdSVeC2YrieipGA [id number]) otKB4lPL8jiNnvoHPrvCDhQ N4DKMIuEiHvQILjsJFjupBw EeJsKINzfATznND1YECmVA2 xbomyXHyzGGshEBKbulC4OQ DnuPAiT2NyANGrPC5nzwnkX UN8CZwxmS0yqeGKOxkaDr6p dHRibHtcZjFcZmNoYXJzZXQ uJIOvhQdyRVPmENw0wG1WCw ttDUA4NAUQOwdpINUpDA9Bq 4zwTYIuvMLaZKP7ZQnqyZCw JIHiDNGfAGe4WXIvMCrulZV kRF7thInzIodhtIyki6CowN BcXGlkIDUxMDAyIFxcZGIgI Y4JZqAtKSL1KbU3OcHkMFp2 MVb7XB2URtGkZVZdXGH6EYE 0EiHoTDw3PGocZR1QAMV7Fd Q4DrX0EjM0QPZ5HmWuVYBqX iBcXGYgQXJpYWwgXFxmbCBc FE9ygAhowACamoHZKgRUn01 fZzelKTNkCCxjTTTzC59ef4 KHi8ZiQP9JQOg1xzNllqlci H0sLZBsdtMuIRhsaEKdY2dy ZnMyMCBSZWNlaXZlZCBpbiB bi6SjAUmciiZyUYTngIGyIO dpdGggdGhlIHBhdGllbnQnc iFdXS4sLPFmF5Hpo4Wlf13w bnVtYmVyIGFuZCAiVDEyIGJ qdjEqZACeBJCpBNZuke12WZ iyr9ruQKObVRMnB5GjTLRdZ NSrf14cSCCjznReFL8xAEX9 cgdyOkJ7vTO5esVdPfegT94 olL2gD8ZgUOGov1CwxWCeH1 BsGRW1HDEbYaZugZRaiaGca YQkHZModsgrk2frV1tpFQCv VGB5Wm0vzAYoZNEwnkO9r6K dJDlfXVErSHGlpQltp0ocHs BsaWdodCBkZWNhbGNpZmljY JTww95aUGwogkCkYNojoiWk UGlsYXIgQXJndWVsbGVzLCB NIJsrHLQtUBDBO6WnWVsykZ oqdR7qMPJdJ99sg6GQf2ZmA UYwKGnet4ivoQngs8FnsTJh MNhtPUFueLBjBEqfmW3pVfD jt7skdFx2JZnfylE3AYQxlr 1QRsrqvH2nBlJxg6zmiSf9C MSUAtjnbuO8w2pzbOqjv9Kn rCSwVW2XSf6= MICROSCOPIC f0jkgAOrGUYwhRZ3BoWeTYO DESCRIPTION (test code pn4zwv7GakAEzpFYoISllgR = 3371) UoyxPnvo59aTA3tD34AP5bD VOmDeX3KPIheoX3Set0AIZv COAqsTVkI439j1nfv5sflpC dyKD3hZchDTYgusosYrV2IP uoBTIpgorpFAa7TCmsAIUun GZ8ANLpxULeK8TzWWMzKA9y ogu9PAV1EYviJOQuArU6DVW ryDQmBGHzjSmbDYyzs870KB Q5VfJsVRQytpCraGzywV2eB eKyNARBmX87fe3jwHX3o7Cp WU5bE4ScVUO3LQaxGXRBQU1 XAWHhe6VpUJMeknAvxs2xOK B2sEwqnKTzf5LxAQ3ysTBtv HvahYctvBFoBC56COI4dO7w DUWfiIyhMoUfA3fxQDG4g5G mzXPffaPvxA85cu0jiMD1r4 QmLO6sV7TgVRG8CFevGDhpQ P1oG9U5nBPaSLXjhzJ1mV8j taSqJGhld3zrOKG6 SPECIAL STUDIES (test t0yqkBWuXSVyn1zyTUTahND code = 3375) uZzEwMzNcZnRuYmpcdWMxIH uymmFzFDbfj6BnE0GhPbDaH FxhbnNpXGRlZmxhbmcxMDMz OXE7cuUkFMXrGJskABKaJUl qQn9aaJJiwNjjKhYxDVWir5 vgsdDDpkxzpUm0d4gzENSfW qJ5yDMkURlbJ8ppjeKiqSLo A7DkyWHrtEj6b5ubXmLnQyA 5cTRdRXiyH7hspvNkiVDbIZ BzXYz9xL33GQHdfF0djPPjT CepjwSrZdS9GJmnLSLfSmO5 QLHldBGwEHAyD5mxAYUrXSc hBRYyUQlefXJaIGM3oCmrw4 D1gXRtcVKfjQreJuMqLmQqJ zQLl5EnXQd8vGwwE9WcWDBq UlY0eIRnKMAyMPqlQSFxWTK zhwQ0nKaihyYmy27rlLVoUS YwXGZzMjBcbGkwXHJpMCBDb 0MphNjzSRG5jIm9zIcxJxdi FCR2Vwk3PM7vut74yxd0mWn eLMTtazmhBtT5MIotLDQedo ghZYu2KCgcPVStiOM0VLKad EDlB2ByZMQyWY1nxee9XWE8 VVcsGPDvPgC4NLOctLDhTNN qrKbtSDgbz534UXE8ZoSyXO 0hG0Sgu3J3lO5ciYFtHGAml RKhWlCcTRQnbq6mbMYuJTvj t4OyMSI9raC6dZQctJGeDDB pRK33Znmng3McLqspb4XtC5 8iyIR8PDeeo9jdMP6rTnP2w dUcCMgtm2dwmI5hSvF1LIph GZ1lIT2bBSAzrH3ginubTLR nYnJkcmhlYWRccGdicmRyZm 8cjLokPNW6JUstA1nvzH5vJ fA2DFmjR3bokT3sYZn0RQmd fBD4DSSptU9bDQ3lakgde8e mDOssNCadHGMickP1hcW9UL IbtYMeX4HqcR9vPNWhDW6bb ppro2fiAMK3XAosLPXxUIV4 JtSwMRIan5Wdhld5UtMcm2X foWJpYPkvV56nz087UYGrsl EdP8auhLVmlgfthGFhfpdxI GeoxfS0SVNxHHJqGZybDHHz XGZzMjJcbGFuZzEwMzNcaGl jaFxmMVxkYmNoXGYxXGxvY2 bvNjPqQ5TqHJUmLwYhQWvwQ OgeoQHdwPPprEQ6dS6xYT5w KOJooIEbR2UwOQMiofBrcLB hYQY3yLHcnMTxQU2iUYlxlV Gro1gkq3VuX8xfaPyclCH5U M7nWWMlPVZtSDnyy1BjsI4s LlxwbGFpblxmMVxmczIyXGx qiqhrEIZsFOcjZ1pqPrCcJZ LfqAzwLHgrx4KxPALeNEHkD rlgueBlPHa7ynPkADJwtsqo GCGcaUetlZ0jXpHlQcTdNjw jJR7eZODvG6wmkWXaOBRxID UaP6qkLiFgyR1opXxzZQezV eXjXjQzRzMQl319ot3fUWNx nZMqkgNCxAMkeU1vPVftWMx sQAkwmFFcSJkff5flICUvw2 g2kORtZPVjaqNki6glSPack nThAPBmrXCndHHhSOIap70g DPufzBxguIkgPCDjd0YrkHg na8PlArLmHYnyl0HzO83mjH JvbCBzbGlkZXMgcnVuIGFsb 70qe7voHJSpEzI4jJAlmSB5 kUFxrVKvs0IleUgbTOXjq3y oPNNphm9navvpoIEno3DowR 5pbmcuIEludGVybmFsIHBvc 7c6jSNySQMbIKIgZBdkqJz8 FXWsx178cs8aoiA8gHZcLEC 2YWlsYWJsZSBhcmUgZXZhbH VhdGVkXHBsYWluXGYxXGZzM jJcbGFuZzEwMzNcaGljaFxm DFzuHiNiUHRmUVdwR8xgXrN pN7ChBNYoLrXqsIDeT4vahG FyXHBsYWluXGYxXGZzMjJcb GFuZzEwMzNcaGljaFxmMVxk FcWbMKHmQImiC2iiFhAcJ4L yXGZzMjIgIFxwbGFpblxmMV xmczIyXGxhbmcxMDMzXGhpY 2hxBrElVMWfsMlnJThxv0Qk SEHuYRDyNedgmoTwSJi3bnR oXHBhclxwbGFpblxmMVxmcz ZhCVthyzgbJNGpFZflK7rjV eEiMDAsdIvjYLbpu3ClCWKk NKCuWoatnlNrGDwoiGRam5y gh6IbJ6luzOssqHG0TFJmG1 lxkBJccRH1SVP5hI0cFMlaa lSiCPXpe0PwNZLaQFNhYpL2 yN8wBSU8DyJGhRigQCDmVBe uXGYxXGZzMjJcbGFuZzEwMz NcaGljaFxmMVxkYmNoXGYxX GbvZ7cxChBhF1KnPRXxSkOy hWpiOZhuPZz0VqihvFBticy mMVxmczIyXGxhbmcxMDMzXG vrX9bfDmXzLKYtlDmaSMrkk 2NoXGYxXGNmMlxmczIyIHMg XLPcdQLckFVMRA25NJVmUDM ohAsamZ4wlKOLLIYlsmR6b7 K6UKlqLIDzABi8BAmulpUjA XLatS5wBWJmTD5gJNd5yuHe AVRzl7FnCS6sMBMbvRJeRZL 4IDVlp5GjS5Xzw5JuAMSoKZ Hnoa2uhnQxXkMToLQoXHUba z54DWAkQY6jU3ozOHXwMPSh apRtnWCho9RgHSVtwCO4xBA oGF4SMuCWe26nXDAsAQZPon YoAKYxeGtwhAW9nlM3vF0uW iBUaGUgRkRBIGhhcyBkZXRl xs8yayZyRGNjXMKas9GzgYJ qdCTildKwC7Lwo0GuRVPgrz 77GWyryXWnwp94TX3yU3Edz 9AlqB8oHRyvZNXmb4ZqcRAe wHSsSURqf1SeB7laibkwYEe dkJNjzR7sDPZjSHe0FRJig3 RjFGVmi0NeWrUwlfQzSNTsZ QSjPGCdwC60SWR4fRcurEba whArWI6uKLAzwlSvRXXuFWV nfA2fAZklfdNaSIAmxaC6n6 Z5SJmhFYJhijLyBnixSLC1k nDahcI5iMHjM5tsyqvuFGuz OVGwg8BkzI0joCWUoCBxg7N tsWRdeUBSfMRtOX5lswFsVL 0hSKF1OTbjYPXZHYOtEWahL XSmLGY6ZSioYmxlBLU0hrHu HFChl0MiNOwbB1sjT69dgDs ihEq4lYJapMfmdPZyxCEaGR OpkcX9k5Z0DBXqc5QxfmdwD HBsYWluXGYyXGZzMjJcbGFu ZzEwMzNcaGljaFxmMlxkYmN fVDMjCIzvY5fcInPfNrRzHd pvXYW5yR== Gross assessment was [facility] Viola's performed at ([facility], code = 2777) Department of Pathology, [address] [place] [address], Technical component [facility] was performed at ([facility], code = 2778) Department of Pathology, [address] [place] [address], Professional component [facility]. Viola's was performed at ([facility], code = 2779) Department of Pathology, [address] [place] [address], [id number] 11:55:54Surgical Pathology Report Case: [id number] Authorizing Provider: Frida Hernandez, Collected: 05/22/2022 09:43 AM Ordering Location: [facility] Received: 05/22/2022 12:28 PM SERVICES Pathologist: Galilea Em MD Specimen: Bone, T 12 A. T12 BONE BIOPSY-Hyaline and fibro-cartilaginous tissueNegative for malignancy Signing Pathologist Direct Phone Line: [phone] sig zach by Galilea Em MD on 05/24/2022 at 11:55 Gill this patient with a given history ofof moderately to poorly differentiated pancreatic adenocarcinoma in the body of the pancreas, no features of malignancy identified. If clinically suspicious repeat biopsies [id number] neoplasm of body of pancreasA. Bone.Received in formalin labeled with the patient's name, accession numberand "T12 bone" are 3 [place]-yellow, trabeculated bone cores measuring up to 1.9 cm in greatest length by 0.2 cm in diameter, which are submitted in toto in A1 following light decalcification.TRINI Salvador HT (ASCP)Immunohistochemical stain AE1/AE3 was performed which does not highlight any tumor cells. Synaptophysin immunohistochemical stain is negative for tumor cellsThe interpretation of this case included the use of immunohistochemistry or special stains.Control Slides Examined: In-house known positive controls were evaluated along with the test tissue. These control slides run alongside of the patients sample show appropriate staining. Internal positive and negative controls when availableare evaluated Immunohistochemistry technical testing was performed at [facility] Pathology [facility] where it was developed and its performance characteristics were determined. It has not been cleared or approved by the U.S. Food and Drug Administration. The FDA has determined that such clearance or approval is not necessary. The test is used for clinical purposes. It should not be regarded as investigational or for research. This laboratory is certified under the Clinical Laboratory Improvement Amendments of 1988 (CLIA-88) as qualified to perform high complexity clinical laboratory testing.[facility], Department of Pathology, [address] [place] [address], [facility], [address] [place] [address], [facility], [address] [place] [address], [facility] W/PLT COUNT & AUTO [id number] 11:34:24 Test Item Value Reference Range Interpretation Comments WHITE BLOOD CELL COUNT (BEAKER) 9.5 K/ L 3.5-10.5 (test code = 775) RED BLOOD CELL COUNT (BEAKER) 4.26 M/ L 3.93-5.22 (test code = 761) HEMOGLOBIN (BEAKER) (test code = 13.2 GM/DL 11.2-15.7 410) HEMATOCRIT (BEAKER) (test code = 39.7 % 34.1-44.9 411) MEAN CORPUSCULAR VOLUME (BEAKER) 93 fL 79-95 (test code = 753) MEAN CORPUSCULAR HEMOGLOBIN 31.0 pg 25.6-32.2 (BEAKER) (test code = 751) MEAN CORPUSCULAR HEMOGLOBIN CONC 33.2 GM/DL 32.2-35.5 (BEAKER) (test code = 752) RED CELL DISTRIBUTION WIDTH 18.3 % 11.7-14.4 H (BEAKER) (test code = 412) PLATELET COUNT (BEAKER) (test 211 K/CU MM 150-450 code = 756) MEAN PLATELET VOLUME (BEAKER) 12.8 fL 9.4-12.3 H (test code = 754) NUCLEATED RED BLOOD CELLS 0 /100 WBC 0-0 (BEAKER) (test code = 413) (CELLAVISION MANUAL DIFF)2022-05-22 11:34:24 Test Item Value [...] CONCENTRATION Adequate (CELLAVISION)(BEAKER) (test code = 3438) Glassie ID - Carolina OverholtUser comments: Slide comments:CT, BIOPSY, BONE 2022-05-22 10:53:00APPROVED PER DR. Smith for Exam:->MALIGNANT NEOPLASM OF BODY [facility] PANCREAS [facility] : 1945 Sex: [address]INAL REPORT CT guided [...] Bita Holt Verified Date/Time: 05/22/2022 10:53:54 ReadingLocation: [facility] B1 [id number] Ortho Consult Reading Room PROTHROMBIN TIME/[id number] 08:05:01 Test Item Value Reference Range Interpretation Comments PROTIME (BEAKER) 15.9 seconds 11.9-14.2 H (test code = 759) INR (BEAKER) (test 1.30 See_Comment [Automat ed message] code = 370) The system M[employer]oy[employer] generated this result transmitted ref erence range: <=5.90. The reference range was not used to int erpret this result as normal/abnormal . RECOMMENDED COUMADIN/WARFARIN INR THERAPY RANGESSTANDARD DOSE: 2.0 - 3.0 Includes: PROPHYLAXIS for venous thrombosis, systemic embolization; TREATMENT for venous thrombosis and/or pulmonary embolus.HIGH RISK: Target INR is 2.5-3.5 for patients with mechanical heart valves.Surgical pathology [id number] 20:10:41 Test Item Value Reference Range Interpretation Comments Case number (test code = [id number]) Surgical pathology See link below for report (test code = PDF Lab Report 2255) Result status (test code This is Final Report = [id number]) [address] [id number] 20:10:41 Test Item Value Reference Range Interpretation Comments Case number (test code = [id number]) Surgical pathology See link below for report (test code = PDF Lab Report 2255) Result status (test code This is Final Report = [id number]) [address] [id number] 20:10:41 Test Item Value Reference Range Interpretation Comments Case number (test code = [id number]) Surgical pathology See link below for report (test code = PDF Lab Report 2255) Result status (test code This is Final Report = [id number]) for [address] pathology [id number] 20:10:41 Test Item Value Reference Range Interpretation Comments Case number (test code = [id number]) Surgical pathology See link below for report (test code = PDF Lab Report 2255) Result status (test code This is Final Report = [id number]) for [address] pathology [id number] 20:10:41 Test Item Value Reference Range Interpretation Comments Case number (test code = [id number]) Surgical pathology See link below for report (test code = PDF Lab Report 2255) Result status (test code This is Final Report = [id number]) for [address]
[2022-08-21] MEDS ORDERED: AMIODARONE HCL 900 MG in Dextrose 5%-Water 482 ML IV ONE (11:00)
[2022-08-21] MEDS ORDERED: AMIODARONE HCL 150 MG in D5W 100 ML IV SCH (11:00)
[2022-08-21 11:15] LABS: Absolute Lymphocytes (CBC) 0.8 K/uL (0.7-4.9); Hematocrit 33.7 % (36.0-45.0); Lymphocytes % 30.7 % (15.3-44.8); MCV 96.8 fL (80-100); MPV 10.9 fL (7.6-11.3); RBC Red Blood Cell Count 3.48 M/uL (3.86-4.86)
[2022-08-21 11:22] LABS: Albumin 2.4 g/dL (3.4-5.0); Bilirubin Total 1.1 mg/dL (0.2-1.0); Magnesium 2.3 mg/dL (1.6-2.4); Potassium 3.5 mmol/L (3.5-5.1); Protein, Total 4.9 g/dL (6.4-8.2)
[2022-08-21 11:31] LABS: Troponin High Sensitivity 13.8 pg/mL (<58.9)
[2022-08-21 11:34] LABS: Thyroid Stimulating Hormone 3.78 uIU/mL (0.358-3.740)
--- NOTE | 2022-08-21 12:05 | EDPHYS ---
Physician Documentation [facility] Name: Nile Michele Age: 77 yrs Sex: Female : 1945 Arrival Date: 08/21/2022 Time: 10:31 Bed 8 Private MD: ED Physician Solis Hunter HPI: 08/21 11:17 This 77 yrs old Female presents to ER via Ambulatory with complaints of Leg Swelling. 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 Patient states that she feels weak and short of breath, however, this is chronic for her and unchanged. She does report of bilateral lower extremity edema, was told to increase her Lasix dosing, she states that this is improving, however, still present. Denies other acute complaints at this time including chest pain. Symptoms are moderate in severity, no other aggravating or elevating factors.. Historical: - Allergies: 10:59 No Known Allergies; ph - PMHx: 10:59 a fib; Hypertensive disorder; pancreatic CA; ph - Immunization history:: Adult Immunizations unknown. - Social history:: Smoking status: unknown. - Family history:: not pertinent. ROS: 11:17 Constitutional: Negative for fever, chills, and weight loss, Abdomen/GI: Negative for rt abdominal pain, nausea, vomiting, diarrhea, and constipation, Skin: Negative for injury, rash, and discoloration, Neuro: Negative for headache, weakness, numbness, tingling, and seizure, Psych: Negative for depression, anxiety, suicide ideation, homicidal ideation, and hallucinations. 11:17 Cardiovascular: Positive for edema, Negative for chest pain. 11:17 Respiratory: Positive for shortness of breath, Negative for cough. 11:17 MS/extremity: Positive for swelling, Negative for acute changes. Exam: 11:17 Constitutional: This is a well developed, well nourished patient who is awake, alert, rt and in no acute distress. Head/Face: Normocephalic, atraumatic. Chest/axilla: Normal chest wall appearance and motion. Nontender with no deformity. No lesions are appreciated. Cardiovascular: Regular rate and rhythm with a normal S1 and S2. No gallops, murmurs, or rubs. Normal PMI, no JVD. No pulse deficits. Respiratory: Lungs have equal breath sounds bilaterally, clear to auscultation and percussion. No rales, rhonchi or wheezes noted. No increased work of breathing, no retractions or nasal flaring. Abdomen/GI: Soft, non-tender, with normal bowel sounds. No distension or tympany. No guarding or rebound. No evidence of tenderness throughout. Skin: Warm, dry with normal turgor. Normal color with no rashes, no lesions, and no evidence of cellulitis. Neuro: Awake and alert, GCS 15, oriented to person, place, time, and situation. Cranial nerves II-XII grossly intact. Motor strength 5/5 in all extremities. Sensory grossly intact. Cerebellar exam normal. Normal gait. Psych: Awake, alert, with orientation to person, place and time. Behavior, mood, and affect are within normal limits. 11:17 ECG was reviewed by the Attending Physician. 11:17 Musculoskeletal/extremity: 3+ pitting bilateral lower extremity edema, no cellulitic changes. Vital Signs: 10:41 BP 102 / 73; Pulse 120; Resp 18; Temp 97.1(TE); Pulse Ox 100% on R/A; Weight 73.94 kg aa5 (R); Height 5 ft. 5 in. (165.10 cm) (R); 10:57 BP 102 / 73; Pulse 113; Resp 21; Pulse Ox 100% on R/A; ph 11:30 BP 98 / 62; Pulse 103; Resp 17; Pulse Ox 100% ; bp 13:16 BP 100 / 87; Pulse 104; Resp 18; Pulse Ox 100% on R/A; ph 14:21 BP 104 / 64; Pulse 104; Resp 17; Pulse Ox 100% ; bp 15:36 BP 94 / 55; Pulse 107; Resp 18; Pulse Ox 98% on R/A; ph 16:30 BP 87 / 62; Pulse 97; Resp 16; Pulse Ox 99% ; bp 17:30 BP 92 / 64; Pulse 99; Resp 14; Pulse Ox 99% ; bp 18:30 BP 102 / 69; Pulse 102; Resp 14; Pulse Ox 100% ; bp 20:07 BP 99 / 64; Pulse 110; Resp 18; Pulse Ox 99% ; kl 20:58 BP 94 / 70; Pulse 104; Resp 20; Pulse Ox 98% on R/A; kl 10:41 Body Mass Index 27.12 (73.94 kg, 165.10 cm) aa5 MDM: 10:41 Patient medically screened. rt 14:01 Differential diagnosis: A-fib, wide-complex tachycardia, sinus tachycardia. Data rt reviewed: vital signs, nurses notes, lab test result(s), EKG, radiologic studies. Consideration of Admission/Observation Patient was admitted/placed on observation. Management of patient was discussed with the following: Hospitalist: Agrees to admit. Hospitality Workers: Casino Banker, recommends admission, amiodarone drip. I considered the following discharge prescriptions or medication management in the emergency department Medications were administered in the Emergency Department. See MAR. Test considered but Not performed: CT: Low suspicion for PE, CT scan not indicated. Care significantly affected by the following chronic conditions: Atrial fibrillation. Counseling: I had a detailed discussion with the patient and/or guardian regarding: the historical points, exam findings, and any diagnostic results supporting the discharge/admit diagnosis, lab results, radiology results, the need for further work-up and treatment in the hospital. Response to treatment: the patient's symptoms have markedly improved after treatment. 08/21 10:43 Order name: CBC with Diff rt 08/21 10:43 Order name: CMP rt 08/21 10:43 Order name: TSH rt 08/21 10:43 Order name: Troponin High Sensitivity rt 08/21 10:43 Order name: BNP rt 08/21 10:43 Order name: EKG; Complete Time: 10:44 rt 08/21 10:43 Order name: EKG - Nurse/Tech; Complete Time: 10:51 rt 08/21 10:43 Order name: Chest Single View XRAY rt 08/21 10:43 Order name: Magnesium rt 08/21 11:22 Order name: CBC with Automated Diff EDMS 08/21 11:23 Order name: Comprehensive Metabolic Panel; Complete Time: 11:53 EDMS 08/21 11:23 Order name: Magnesium; Complete Time: 11:53 EDMS 08/21 11:34 Order name: Troponin High Sensitivity; Complete Time: 11:53 EDMS 08/21 11:34 Order name: NT PRO-BNP; Complete Time: 11:53 EDMS 08/21 11:34 Order name: Thyroid Stimulating Hormone; Complete Time: 11:53 EDMS 08/21 11:47 Order name: T4 Free; Complete Time: 11:53 EDMS 08/21 12:09 Order name: SARS-COV-2 Antigen Rapid bd 08/21 12:19 Order name: RAD EDMS 08/21 12:35 Order name: SARS-COV-2 Antigen Rapid EDMS 08/21 13:19 Order name: Manual Differential EDMS EC:17 Rate is 108 beats/min. Rhythm is irregularly irregular, A fib with Occasional PVCs. QRS rt interval is normal. QT interval is normal. No Q waves. T waves are Normal. Administered Medications: 11:20 Drug: amiodarone 150 mg Route: IVP; Site: right antecubital; ph 11:58 Follow up: Response: No adverse reaction bp 11:30 Drug: amiodarone 900 mg, D5W 500 ml Route: IVPB; Rate: 1 mg/min; Site: right bp antecubital; 17:30 Follow up: Rate change 0.5 mg/min ph 18:00 Follow up: Response: No adverse reaction; IV Status: Infusion continued upon admission ph 12:30 Drug: Lasix (furosemide) 40 mg Route: IVP; Site: right antecubital; bp 14:20 Follow up: Response: No adverse reaction bp Disposition Summary: 08/21/22 12:04 Hospitalization Ordered Hospitalization Status: Observation rt Provider: Everett Hatch rt Condition: Stable rt Problem: an acute exacerbation rt Symptoms: have improved rt Bed/Room Type: Standard rt Location: Telemetry/MedSurg (Inpatient)(08/21/22 20:19) cg Room Assignment: [facility](08/21/22 20:19) cg Diagnosis - Unspecified atrial fibrillation rt Forms: - Medication Reconciliation Form rt - SBAR form rt Signatures: Dispatcher [employer] EDMS Shani Vega RN RN ph Lexii Ann RN RN cg Ron Meneses RN RN bp Solis Hunter MD MD rt Corrections: (The following items were deleted from the chart) 20:19 12:04 Intensive Care Unit rt cg 20:19 12:04 rt cg
--- NOTE | 2022-08-21 12:05 | ER ---
Nurse's Notes [facility] Name: Nile Michele Age: 77 yrs Sex: Female : 1945 Arrival Date: 08/21/2022 Time: 10:31 Bed 8 Private MD: Diagnosis: Unspecified atrial fibrillation Presentation: 08/21 10:41 Chief complaint: Patient states: "I went to go see Dr. Chu but he wasn't there and aa5 Dr. Whitlock said my heart is going fast so to come to the ER". Pt also reports leg swelling. 10:41 Coronavirus screen: At this time, the client does not indicate any symptoms associated aa5 with coronavirus-19. Ebola Screen: Patient denies travel to an Ebola-affected area in the 21 days before illness onset. Initial Sepsis Screen: Does the patient meet any 2 criteria? HR > 90 bpm. Does the patient have a suspected source of infection? No. Patient's initial sepsis screen is negative. Risk Assessment: Do you want to hurt yourself or someone else? Patient reports no desire to harm self or others. Onset of symptoms was August 21, 2022. 10:41 Acuity: JERMAINE 2 aa5 10:41 Method Of Arrival: Ambulatory aa5 Triage Assessment: 10:45 General: Appears in no apparent distress. slender, Behavior is cooperative, appropriate bp for age, anxious. Pain: Denies pain. EENT: No deficits noted. Neuro: No deficits noted. Cardiovascular: Rhythm is atrial fibrillation with rapid ventricular response. Respiratory: No deficits noted. GI: No signs and/or symptoms were reported involving the gastrointestinal system. : No signs and/or symptoms were reported regarding the genitourinary system. Derm: No deficits noted. Musculoskeletal: No deficits noted. Historical: - Allergies: 10:59 No Known Allergies; ph - PMHx: 10:59 a fib; Hypertensive disorder; pancreatic CA; ph - Immunization history:: Adult Immunizations unknown. - Social history:: Smoking status: unknown. - Family history:: not pertinent. Screenin:58 [facility] ED Fall Risk Assessment (Adult) History of falling in the last 3 months, ph including since admission No falls in past 3 months (0 pts) Confusion or Disorientation No (0 pts) Intoxicated or Sedated No (0 pts) Impaired Gait No (0 pts) Mobility Assist Device Used No (0 pt) Altered Elimination No (0 pt) Score/Fall Risk Level 0 - 2 = Low Risk Oriented to surroundings, Maintained a safe environment, Hourly rounding (assess needs \\T\\ fall precautionary measures) done. Abuse screen: Denies threats or abuse. Denies injuries from another. Nutritional screening: No deficits noted. Tuberculosis screening: No symptoms or risk factors identified. Assessment: 10:45 General: SEE TRIAGE NOTE. bp 11:45 Reassessment: No changes from previously documented assessment. Patient and/or family bp updated on plan of care and expected duration. Pain level reassessed. 14:00 Reassessment: ADMIT IN PROCESS. bp 16:00 Reassessment: No changes from previously documented assessment. Patient and/or family bp updated on plan of care and expected duration. Pain level reassessed. 18:00 Reassessment: No changes from previously documented assessment. Patient and/or family bp updated on plan of care and expected duration. Pain level reassessed. ADMIT IN PROCESS. 20:06 Reassessment: Patient and/or family updated on plan of care and expected duration. Pain kl level reassessed. Patient is alert, oriented x 3, equal unlabored respirations, skin warm/dry/pink. Patient states feeling better. Cardiovascular: Rhythm is atrial fibrillation with rapid ventricular response. Respiratory: No deficits noted. Vital Signs: 10:41 BP 102 / 73; Pulse 120; Resp 18; Temp 97.1(TE); Pulse Ox 100% on R/A; Weight 73.94 kg aa5 (R); Height 5 ft. 5 in. (165.10 cm) (R); 10:57 BP 102 / 73; Pulse 113; Resp 21; Pulse Ox 100% on R/A; ph 11:30 BP 98 / 62; Pulse 103; Resp 17; Pulse Ox 100% ; bp 13:16 BP 100 / 87; Pulse 104; Resp 18; Pulse Ox 100% on R/A; ph 14:21 BP 104 / 64; Pulse 104; Resp 17; Pulse Ox 100% ; bp 15:36 BP 94 / 55; Pulse 107; Resp 18; Pulse Ox 98% on R/A; ph 16:30 BP 87 / 62; Pulse 97; Resp 16; Pulse Ox 99% ; bp 17:30 BP 92 / 64; Pulse 99; Resp 14; Pulse Ox 99% ; bp 18:30 BP 102 / 69; Pulse 102; Resp 14; Pulse Ox 100% ; bp 20:07 BP 99 / 64; Pulse 110; Resp 18; Pulse Ox 99% ; kl 20:58 BP 94 / 70; Pulse 104; Resp 20; Pulse Ox 98% on R/A; kl 10:41 Body Mass Index 27.12 (73.94 kg, 165.10 cm) aa5 ED Course: 10:31 Patient arrived in ED. mr 10:33 Solis Hunter MD is Attending Physician. rt 10:41 Arm band placed on. aa5 10:50 Ron Meneses, RN is Primary Nurse. bp 10:58 Patient has correct armband on for positive identification. Placed in gown. Bed in low ph position. Call light in reach. Side rails up X2. Client placed on continuous cardiac and pulse oximetry monitoring. NIBP monitoring applied. Door closed. Noise minimized. Warm blanket given. Pillow given. 10:59 Triage completed. aa5 11:00 Inserted saline lock: 20 gauge in right antecubital area, using aseptic technique. bp Blood collected. 11:58 BNP Sent. bp 11:58 Troponin High Sensitivity Sent. bp 11:58 CMP Sent. bp 11:58 CBC with Diff Sent. bp 11:58 TSH Sent. bp 11:58 Magnesium Sent. bp 11:58 Chest Single View XRAY Sent. bp 12:02 Everett Hatch MD is Hospitalizing Provider. rt 12:18 SARS-COV-2 Antigen Rapid Sent. bp 20:59 No provider procedures requiring assistance completed. Patient admitted, IV remains in kl place. Administered Medications: 11:20 Drug: amiodarone 150 mg Route: IVP; Site: right antecubital; ph 11:58 Follow up: Response: No adverse reaction bp 11:30 Drug: amiodarone 900 mg, D5W 500 ml Route: IVPB; Rate: 1 mg/min; Site: right bp antecubital; 17:30 Follow up: Rate change 0.5 mg/min ph 18:00 Follow up: Response: No adverse reaction; IV Status: Infusion continued upon admission ph 12:30 Drug: Lasix (furosemide) 40 mg Route: IVP; Site: right antecubital; bp 14:20 Follow up: Response: No adverse reaction bp Medication: 10:58 VIS not applicable for this client. ph Outcome: 12:04 Decision to Hospitalize by Provider. rt 20:59 Admitted to Med/surg accompanied by nurse, accompanied by akhil, room 209, with chart. 20:59 Condition: stable 20:59 Discharge instructions given to patient, family, Instructed on the need for admit, Demonstrated understanding of instructions. 20:59 Patient left the ED. Signatures: Bisi Wesley RN RN kl PizarroCarine mr DoyleYen RN RN aa Shani Vega RN RN Ron Meneses RN RN bp [place], Ryan, MD MD rt Corrections: (The following items were deleted from the chart) 11:00 10:59 Risk Assessment: Do you want to hurt yourself or someone else? Patient reports no aa5 desire to harm self or others. ph 11:00 10:59 Initial Sepsis Screen: Does the patient meet any 2 criteria? HR > 90 bpm. Does aa5 the patient have a suspected source of infection? No. Patient's initial sepsis screen is negative. ph 11:00 10:59 Ebola Screen: No symptoms or risks identified at this time. ph aa5 11:00 10:59 Method Of Arrival: Ambulatory ph aa5 12:00 11:15 amiodarone 900 mg, D5W 500 ml IVPB at 1 mg/min in right antecubital bp bp 19:08 18:00 Reassessment: No changes from previously documented assessment. Patient and/or bp family updated on plan of care and expected duration. Pain level reassessed. ICU ADMIT IN PROCESS bp 19:36 17:00 Rate change 0.5 mg/min ph ph
--- NOTE | 2022-08-21 12:19 | RAD REPORT ---
EXAM DESCRIPTION: RADChest Single View08/21/2022 11:35 am CLINICAL HISTORY: DYSPNEA COMPARISON: Chest Single View dated 05/23/2022; Chest Pa And Lat (2 Views) dated 08/11/2019; Chest Pa And Lat (2 Views) dated 09/18/2016 TECHNIQUE: Portable AP view of the chest. FINDINGS: The lungs are clear.Interval improvement of perihilar interstitial opacities. No pneumotho rax or effusion. The heart is moderately enlarged. Mediastinal contours are unchanged. Right chest wa ll port in place. IMPRESSION: Cardiomegaly. No focal airspace opacities.
[2022-08-21 12:35] LABS: SARS-CoV-2 Antigen Rapid Res Negative (Negative)
[2022-08-21 13:18] LABS: Anisocytosis 1+; Blood Morphology Comment NOTED (NOT SEEN); Platelet Estimate DECR
[2022-08-21] MEDS ORDERED: FUROSEMIDE 40 MG/4 ML VIAL ONE (14:12)
--- NOTE | 2022-08-21 17:59 | P.SSS ---
Patient History Date of Service: 08/21/22 Reason for admission: TACHYCARDIA AT DR. PAYNE History of Present Illness: MS. SHERMAN IS A PATIENT WITH CHRONIC A FIB AND PANCREATIC CANCER. SHE HAS TACHYCARDIA OF 140 PE RMIN AND WAS SENT TO ER BY DR. PAYNE. SHE HAS HAD PANCRETIC CANCER INCIDENTLY DETECTED WHILE [place] FOR UTI BY DR FONSECA. SHE ON CHEMO FOR IT NOW BY DR. NJ. Allergies No Known Allergies Allergy (Verified 05/18/22 15:34) Home medications list reviewed: Yes Home Medications: Rivaroxaban [Xarelto] 1 tab PO DAILY 05/23/22 Levalbuterol Tartrate [Xopenex Hfa] 2 puff IH Q6H PRN #1 inhaler 05/26/22 Metoprolol Succinate [Toprol Xl] 100 mg PO BID #60 tab 05/26/22 - Past Medical/Surgical History Diabetic: No -: Pancreatic cancer -: Atrial fibrillation -: Hypertension -: Nicotine dependence - Social History Alcohol use: Yes CD- Drugs: No Caffeine use: Yes Review of Systems 10-point ROS is otherwise unremarkable General: Weakness Physical Examination - Physical Exam General: Oriented x3, Mild distress HEENT: Atraumatic, PERRLA, Mucous membr. moist/pink, Other (SHERRON CATH R SIDE CHEST WALL), EOMI, Sclerae nonicteric Neck: Supple, 2+ carotid pulse no bruit, No LAD, Without JVD or thyroid abnorm ality Respiratory: Clear to auscultation bilaterally, Normal air movement Cardiovascular: Irregular heart rate/rhythm Gastrointestinal: Normal bowel sounds, No tenderness Musculoskeletal: No tenderness Integumentary: No rashes Neurological: Normal gait, Normal speech, Normal strength at 5/5 x4 extr, Normal tone, Normal affect Lymphatics: No axilla or inguinal lymphadenopathy - Studies Laboratory Data (last 24 hrs) 08/21/22 10:55: Sodium 141, Potassium 3.5, BUN 32 H, Creatinine 1.45 H, Glucose 147 H, Magnesium 2.3, Total Bilirubin 1.1 H, AST 57 H, ALT 37, Alkaline Phosphatase 109 08/21/22 10:55: WBC 2.70 L, Hgb 11.2 L, Hct 33.7 L, Plt Count 139 L - Diagnosis (Problem(s)) (1) Atrial fibrillation, rapid Current Visit: Yes Status: Chronic Plan: RAPID A FIB AMIO DRIP ALREADY ON XARELTO SHE SHOULD BE ABLE TO GO HOME TOMORROW PM SHE NEEDS TO GO TO CHEMO DAY AFTER (2) Pancreas cancer Current Visit: Yes Status: Acute Plan: 3/5 CM ON CHEMO STABLE FOR NOW CT DID NOT SHOW ANY METS. Qualifiers: Pancreatic malignancy location: body of pancreas Qualified Code(s): C25.1 - Malignant neoplasm of body of pancreas - Disposition Disposition: ROUTINE DISCHARGE
[2022-08-21 23:00] VITALS: BMI 27.1
[2022-08-22] MEDS ORDERED: PNEUMOCOCCAL VACCINE 0.5 ML IMVAC ONE (08:00)
[2022-08-22] MEDS: METOPROLOL TAR 25 MG TAB PO SCH ×2 (14:13→17:04)
[2022-08-22] MEDS: AMIODARONE HCL 200 MG TAB PO SCH ×2 (14:26→20:56)
[2022-08-22] MEDS ORDERED: FUROSEMIDE 40 MG/4 ML VIAL IV SCH (17:00)
--- NOTE | 2022-08-22 17:35 | EKG ---
Test Date: 2022-08-21 Test Time: 10:56:34 Engineer Automated Equipment: JL MEASUREMENT RESULTS: Intervals: Rate: 108 NM: QRSD: 88 QT: 298 QTc: 399 [place]: P: NM: QRS: -63 T: -70 INTERPRETIVE STATEMENTS: Atrial fibrillation with rapid ventricular response with premature ventricular or aberrantly conducted complexes Low voltage QRS Left anterior fascicular block Cannot rule out Anterior infarct, age undetermined Abnormal ECG No previous ECG available for comparison Electronically Signed On 08-22-22 17:33:02 BOLT CUTTER by Raudel Whitlock
--- NOTE | 2022-08-22 21:30 | P.PN ---
Subjective Date of Service: 08/22/22 Chief Complaint: TACHYCARDIA AT DR. PAYNE Subjective: Improving PATIENT IS STABLE. DENIES ANY PAIN SHE IS STILL IN A FIB ABOUT 110 PERMIN. Review of Systems 10-point ROS is otherwise unremarkable General: Weakness Cardiovascular: As per HPI Physical Examination - Vital Signs Temperature: 97.4 F Blood Pressure: 130/61 Pulse: 116 Respirations: 18 Pulse Ox (%): 98 - Physical Exam General: Alert, In no apparent distress HEENT: Atraumatic, PERRLA, EOMI Neck: Supple, JVD not distended Respiratory: Clear to auscultation bilaterally, Normal air movement Cardiovascular: Abnormal S1 S2 Gastrointestinal: Normal bowel sounds, No tenderness Musculoskeletal: No tenderness Integumentary: No rashes Neurological: Normal speech, Normal tone, Normal affect Lymphatics: No axilla or inguinal lymphadenopathy - Studies Medications List Reviewed: Yes Assessment And Plan - Current Problems (Diagnosis) (1) Atrial fibrillation, rapid Current Visit: Yes Status: Chronic Plan: RAPID A FIB AMIO DRIP ALREADY ON XARELTO SHE SHOULD BE ABLE TO GO HOME TOMORROW PM SHE NEEDS TO GO TO CHEMO DAY AFTER CONTINUE XARELTO STABLE. (2) Pancreas cancer Current Visit: Yes Status: Acute Plan: 3/5 CM ON CHEMO STABLE FOR NOW CT DID NOT SHOW ANY METS. PROGNOSIS GUARDED. Qualifiers: Pancreatic malignancy location: body of pancreas Qualified Code(s): C25.1 - Malignant neoplasm of body of pancreas
[2022-08-23 03:54] LABS: Potassium 3.5 mmol/L (3.5-5.1)
[2022-08-23] MEDS: METOPROLOL TAR 25 MG TAB PO SCH ×2 (05:36→18:00)
[2022-08-23] MEDS ORDERED: METOPROLOL XL 100 MG TAB PO SCH (09:00)
[2022-08-23] MEDS: TORSEMIDE 20 MG TAB PO SCH (10:15)
[2022-08-23] MEDS: ENALAPRIL 10 MG TAB PO SCH ×2 (10:16→21:00)
[2022-08-23] MEDS: AMIODARONE HCL 200 MG TAB PO SCH ×2 (10:16→21:28)
[2022-08-23] MEDS ORDERED: MIDAZOLAM HCL 10 ML ONE (13:48)
[2022-08-23] MEDS ORDERED: ATROPINE SULF 1 MG/10 ML SYR IV ONE (13:49)
[2022-08-23] MEDS ORDERED: LIDOCAINE VISCOUS 2% SOLN 15 ML UDC ONE (13:49)
[2022-08-23] MEDS ORDERED: PHENOL 1.4% ORAL SPRAY 180ML ONE (13:49)
[2022-08-23] MEDS ORDERED: METOPROLOL TARTRATE 5 MG/5 ML INJ IV ONE (13:49)
[2022-08-23] MEDS ORDERED: FLUMAZENIL 0.1 MG/ML (5 mL VIAL) IV ONE (13:49)
[2022-08-23] MEDS ORDERED: NA CHLORIDE 0.9% 500 ML ONE (14:17)
[2022-08-23] MEDS ORDERED: NA CHLORIDE 0.9% 500 ML IV ONE (15:50)
[2022-08-23] MEDS ORDERED: NA CHLORIDE 0.9% 1,000 ML ONE (15:57)
[2022-08-23] MEDS ORDERED: XARELTO 20 MG PO SCH (17:00)
[2022-08-23] MEDS ORDERED: RIVAROXABAN 20 MG TABLET PO SCH (17:00)
[2022-08-23 19:05] LABS: Absolute Lymphocytes (CBC) 1.3 K/uL (0.7-4.9); Hematocrit 31.8 % (36.0-45.0); Lymphocytes % 45.3 % (15.3-44.8); MCV 98.3 fL (80-100); MPV 10.6 fL (7.6-11.3); RBC Red Blood Cell Count 3.23 M/uL (3.86-4.86)
[2022-08-23 19:20] LABS: Potassium 3.2 mmol/L (3.5-5.1)
[2022-08-23 20:13] LABS: Anisocytosis 1+; Blood Morphology Comment NOTED (NOT SEEN); Platelet Estimate ADEQ
[2022-08-23] MEDS ORDERED: POTASSIUM CL SA 10 MEQ TAB PO ONE (21:00)
--- NOTE | 2022-08-23 21:17 | P.PN ---
Subjective Date of Service: 08/23/22 Chief Complaint: BP DROP AFTER CARDIOVERSION. Subjective: C/O voiced PATIENT IS STABLE. DENIES ANY PAIN SHE IS STILL IN A FIB ABOUT 110 PERMIN. SHE IS STABLE HR REMAINED HIGH AT 110 DR. PAYNE DID MOE WITH CARDIOVERSION. SHE TOLERATED WELL LATER BP DROPPED TO 70 SYSTOLIC SHE GOT BOLUS OF FLUID BP IS NOW UP TO 98 SYSTOLIC HR IS STABLE. SHE WILL STAY ONE MORE DAY. Physical Examination - Vital Signs Temperature: 97.0 F Blood Pressure: 78/51 Pulse: 60 Respirations: 20 Pulse Ox (%): 96 - Physical Exam General: Alert, In no apparent distress HEENT: Atraumatic, PERRLA, EOMI Neck: Supple, JVD not distended Respiratory: Clear to auscultation bilaterally, Normal air movement Cardiovascular: Regular rate/rhythm, Normal S1 S2 Gastrointestinal: Normal bowel sounds, No tenderness Musculoskeletal: No tenderness Integumentary: No rashes Neurological: Normal speech, Normal tone, Normal affect Lymphatics: No axilla or inguinal lymphadenopathy - Studies Laboratory Data (last 24 hrs) 08/23/22 02:49: Sodium 140, Potassium 3.5, BUN 29 H, Creatinine 1.25 H, Glucose 90 Medications List Reviewed: Yes Assessment And Plan - Current Problems (Diagnosis) (1) Atrial fibrillation, rapid Current Visit: Yes Status: Chronic Plan: RAPID A FIB AMIO DRIP ALREADY ON XARELTO SHE SHOULD BE ABLE TO GO HOME TOMORROW PM SHE NEEDS TO GO TO CHEMO DAY AFTER CONTINUE XARELTO STABLE. HPI. (2) Pancreas cancer Current Visit: Yes Status: Acute Plan: 3/5 CM ON CHEMO STABLE FOR NOW CT DID NOT SHOW ANY METS. PROGNOSIS GUARDED. Qualifiers: Pancreatic malignancy location: body of pancreas Qualified Code(s): C25.1 - Malignant neoplasm of body of pancreas
[2022-08-23] MEDS: APIXABAN 5 MG TABLET PO SCH (21:28)
--- NOTE | 2022-08-23 22:02 | PN ---
Date of Progress Note: 08/23/2022 Subjective: Seen by bedside. Continues to be in atrial fibrillation. She is n.p.o. Plan for MOE c ardioversion today. Review of Systems: No chest pain. Has still shortness of breath with some lower extremity edema. No nausea, vomiting, diarrhea. All other systems were reviewed, they were negative. Physical Examination: Vital Signs: Reviewed. Head and Neck: Pupils are equal, reactive to light. Intact eye movements. No JVD. No cervical lym phadenopathy. Neck: Supple. Thyroid is not enlarged. Lungs: Clear to auscultation bilaterally. No rhonchi, rales, or crackles. No accessory muscle. Heart: Irregularly irregular. No extra sounds. Abdomen: Soft, nontender. Bowel sounds positive. No organomegaly. No masses or hernia. No rigidi ty or rebound. Extremities: No edema, clubbing, cyanosis. Intact pulses. Skin: No rash. Neuro: Alert, awake, oriented x3. No acute focal deficits associated. Lymph Nodes: No cervical or axillary lymphadenopathy. Investigations: BUN 29, creatinine 1.25. Assessment/recommendation: 1.Atrial fibrillation with rapid ventricular response, status post successful cardioversion today gu ided by MOE. Continue amiodarone 200 mg by mouth twice a day, and introduce Eliquis 5 mg twice a day , and at least use Eliquis for 4 months post cardioversion. 2.Acute on chronic diastolic heart failure exacerbation. She was placed on torsemide. From my perspective, patient can be released to follow up as an outpatient. SR/MODL Voice ID: [id number] Report ID: [id number]
--- NOTE | 2022-08-23 22:29 | CON ---
Date of Consultation: 08/22/2022 Reason For Consultation: Atrial fibrillation with rapid ventricular response and heart failure. History Of Present Illness: This is a 77-year-old female, history of atrial fibrillation, pancreatic cancer, on chemotherapy, also congestive heart failure, presented to the office. She was tachycardi ac, heart rate in the 140s, atrial fibrillation, rapid ventricular response. She was very short of b reath with lower extremity edema and heart failure symptoms. She was sent from the office, started o n amiodarone drip and continues to be in atrial fibrillation, but rate is slightly better. Past Medical History: As outlined above in the HPI. Medications: Refer reconciliation sheet for detailed list. Allergies: NO KNOWN DRUG ALLERGIES. Family History: No premature coronary artery disease or cancer. Social History: Does not smoke or drink. Does not use any drugs. Review of Systems: All systems reviewed and they were negative except as mentioned in HPI. Physical Examination: Vital Signs: Reviewed. Head and Neck: Pupils are equal, reactive to light. Intact eye movements. No JVD. No cervical lym phadenopathy. Neck is supple. Thyroid is not enlarged. Lungs: Clear to auscultation bilaterally. No rhonchi, wheezing, or crackles. No accessory muscle u se. Heart: Regular rate and rhythm. No extra sounds. Abdomen: Soft, nontender. Bowel sounds positive. No organomegaly. No masses or hernia. No rigidi ty or rebound. Extremities: Has 3+ pitting edema bilaterally. No clubbing or cyanosis. Intact pulses. Skin: No rash. Neurological: Alert, awake, oriented x3. No acute focal deficits were appreciated. Investigations: BUN 32, creatinine 1.45. Assessment And Recommendation: 1.Atrial fibrillation with rapid ventricular response. Continue full 24-hour amiodarone load and th en switch her to 200 mg by mouth twice a day and recommend Eliquis 5 mg twice a day and plan for MOE- guided cardioversion tomorrow. 2.Congestive heart failure. Recommend IV Lasix for symptoms relief. SR/MODL Voice ID: [id number] Report ID: [id number]
[2022-08-24 00:48] VITALS: O2SAT 98
--- NOTE | 2022-08-24 02:29 | OP ---
Date of Procedure: 08/23/2022 Surgeon: DANIEL PAYNE Procedures Performed: 1.Transesophageal echocardiogram. 2.Electrical cardioversion using 200 joules synchronized. Indication: Atrial fibrillation with rapid ventricular response, not responding to medications. Description Of Procedure: After risks, benefits, and alternatives were explained, patient agreed to the procedure and signed informed consent. Patient was brought into the OR room and after appropriat e time-out, we used the local lidocaine to numb the back of throat and then I gave 5 mg of Versed and advanced MOE probe without difficulty. Focused MOE was performed. There was no left atrial appenda ge thrombosis. Then MOE probe was removed and then synchronized 200 joules electrical cardioversion was performed, successfully converting the rhythm into normal sinus rhythm. Conclusion: Successful MOE guided electrical cardioversion to normal sinus rhythm. SR/MODL Voice ID: [id number] Report ID: [id number]
[2022-08-24] MEDS: METOPROLOL TAR 25 MG TAB PO SCH (06:00)
[2022-08-24 06:12] VITALS: BP 90/56; TEMP 98.1
--- NOTE | 2022-08-24 07:06 | TEE ---
TRANSESOPHAGEAL ECHOCARDIOGRAM REPORT CARDIOLOGY DEPARTMENT DATE OF STUDY: 08/23/2022 HEIGHT: 5'5" WEIGHT: 163 lbs DIAGNOSIS: CARDIOVERSION MUD GRINDER COMMENTS: MOE CARDIAC HISTORY: CATHERIZATION: SURGERY: PROSTHETIC VALVE: PACEMAKER: 2 DIMENSIONAL ASSESSMENT: RIGHT ATRIUM: LEFT ATRIUM: RIGHT VENTRICLE: LEFT VENTRICLE: TRICUSPID VALVE: MITRAL VALVE: PULMONIC VALVE: AORTIC VALVE: PERICARDIAL EFFUSION: AORTIC ROOT: EJECTION FRACTION: % LEFT VENTRICULAR WALL MOTION: DOPPLER/COLOR FLOW: COMMENTS: 1. TRANSESOPHAGEAL ECHOCARDIOGRAM PROBE INSTERTED WITHOUT DIFFICULTY 2. NO LEFT ATRIAL APPENDAGE THROMBUS 3. MODERATE MITRAL REGURGITATION TECHNOLOGIST: SHAKEEL SANCHEZ
[2022-08-24] MEDS ORDERED: dexAMETHasone 4 MG/ML VIAL IV ONE (08:04)
[2022-08-24] MEDS ORDERED: POTASSIUM CL SA 10 MEQ TAB PO ONE (08:04)
[2022-08-24] MEDS: AMIODARONE HCL 200 MG TAB PO SCH (08:29)
[2022-08-24] MEDS: ENALAPRIL 10 MG TAB PO SCH (08:30)
[2022-08-24] MEDS: APIXABAN 5 MG TABLET PO SCH (08:30)
[2022-08-24] MEDS: TORSEMIDE 20 MG TAB PO SCH (08:31)
--- NOTE | 2022-08-24 21:46 | P.DS ---
Admission Date: 08/23/22 Discharge Date: 08/24/22 Disposition: ROUTINE DISCHARGE Discharge Condition: FAIR Reason for Admission: BP DROP AFTER CARDIOVERSION. - Problems (1) Atrial fibrillation, rapid Status: Chronic (2) Pancreas cancer Status: Acute Qualifiers: Pancreatic malignancy location: body of pancreas Qualified Code(s): C25.1 - Malignant neoplasm of body of pancreas Brief History of Present Illness: MS. SHERMAN IS A PATIENT WITH CHRONIC A FIB AND PANCREATIC CANCER. SHE HAS TACHYCARDIA OF 140 PE RMIN AND WAS SENT TO ER BY DR. PAYNE. SHE HAS HAD PANCRETIC CANCER INCIDENTLY DETECTED WHILE [facility] FOR UTI BY DR FONSECA. SHE ON CHEMO FOR IT NOW BY DR. NJ. Hospital Course: JUSTINE SHERMAN COMES IN AFTER DR PAYNE SENT HER FOR A FIB THAT WAS RAPID. AMIODAREONE ALONE DID NOT WORK. HE DID CARDIOVERSION FROM MOE AND SHE DID WELL BUT HER BP DROPPED. THIS DELAYED DISCHARGE BY . I GAVE HER IV BOLUS AND OVERNIGHT HELD HER MEDS. BP IS 98 SYSTOLIC NOW. SHE ASKED WHY SHE IS CHRONICALLY SHORT OF BREATH. SHE IS A SMOKER FOR LAST 65 YEARS AND STILL ASKED THAT. I TOLD HER THAT IT IS COPD THE MAIN REASON FOR DYSPNEA AND NOT CHF. UNFORTUTELY WITH HER PREVIOUS ENCOUNTER SHE HAS BEEN ONLY TOLD ABOUT CHF. SHE HAS NO CHF AT THIS TIME. HER BP IS LOW BECAUSE OF DIURETICS AND BP MEDS. SHE WILL HAVE TO HOLD HER MEDS UNLESS HER BP IS MORE THAN 120 SYSTOLIC. SHE UNDERSTANDS. SHE WILL FU WITH DR. PAYNE AND DR. DIANE. I CALLED DR. DIANE AND EXPLAINED THAT INHALER LIKE TRELEGY OER BREZTRI SHOULD HELP HER FOR LONG RUN. SHE WAS GIVE A DOSE OF DEXAMETHASONE BEFORE DISCHARGE TO IMPROVE COPD FOR SHORT TERM AT LEAST. Vital Signs/Physical Exam: Temp Pulse Resp BP Pulse Ox 98.1 F 67 17 90/56 L 96 08/24/22 04:00 08/24/22 06:00 08/24/22 04:00 08/24/22 06:00 08/24/22 04:00 Laboratory Data at Discharge: WBC 2.80 K/uL (4.3-10.9) L 08/23/22 18:38 Hgb 10.6 g/dL (12.0-15.0) L 08/23/22 18:38 Hct 31.8 % (36.0-45.0) L 08/23/22 18:38 Plt Count 161 K/uL (152-406) 08/23/22 18:38 Sodium 139 mmol/L (136-145) 08/23/22 18:38 Potassium 3.2 mmol/L (3.5-5.1) L 08/23/22 18:38 BUN 25 mg/dL (7-18) H 08/23/22 18:38 Creatinine 1.18 mg/dL (0.55-1.02) H 08/23/22 18:38 Glucose 161 mg/dL (74-106) H 08/23/22 18:38 Magnesium 2.3 mg/dL (1.6-2.4) 08/21/22 10:55 Total Bilirubin 1.1 mg/dL (0.2-1.0) H 08/21/22 10:55 AST 57 U/L (15-37) H 08/21/22 10:55 ALT 37 U/L (13-56) 08/21/22 10:55 Alkaline Phosphatase 109 U/L (45-117) 08/21/22 10:55 Home Medications: Rivaroxaban [Xarelto] 1 tab PO DAILY AT SUPPER 05/23/22 Torsemide [Demadex*] 20 mg PO DAILY 08/22/22 Amiodarone HCl [Cordarone*] 200 mg PO BID #60 tab 08/24/22 Metoprolol Tartrate [Lopressor*] 25 mg PO BID 6AM 6PM #60 tab 08/24/22 New Medications: Amiodarone HCl [Cordarone*] 200 mg PO BID #60 tab Metoprolol Tartrate [Lopressor*] 25 mg PO BID 6AM 6PM #60 tab Followup: Dawson Diane MD [Primary Care Provider] - 1 Week Raudel Payne MD [ACTIVE - CAN ADMIT] -
--- NOTE | 2022-08-25 13:15 | EKG ---
Test Date: 2022-08-23 Test Time: 14:38:08 Solderer Assembler: SELINA MEASUREMENT RESULTS: Intervals: Rate: 57 GA: 184 QRSD: 92 QT: 474 QTc: 461 [place]: P: 29 GA: 184 QRS: -57 T: -16 INTERPRETIVE STATEMENTS: Sinus bradycardia Left anterior fascicular block Possible Anterior infarct, age undetermined Abnormal ECG Compared to ECG 08/21/2022 10:56:34 Atrial fibrillation no longer present Ventricular premature complex(es) no longer present Myocardial infarct finding still present Electronically Signed On 08-25-22 13:14:07 AIRFRAME TECHNICIAN by Raudel Whitlock
== END 2022-08-24 10:15 | disposition home or self-care (01) | DRG 309 ==
LOC: ER 10:27 → ERHOLD 12:05 → 2ND 20:52 → OBSVTOIN 08-23 17:14
PROVIDERS: ADMIT Internal Medicine; ATTEND Internal Medicine
PROC: B24BZZ4 Ultrasonography of Heart with Aorta, Transesophageal (ICD-10-PCS; principal; 2022-08-23)
PROC: 5A2204Z Restoration of Cardiac Rhythm, Single (ICD-10-PCS; 2022-08-23)
DX: I48.20 Chronic atrial fibrillation, unspecified (principal); C25.1 Malignant neoplasm of body of pancreas; J44.9 Chronic obstructive pulmonary disease, unspecified; Z79.01 Long term (current) use of anticoagulants; Z79.899 Other long term (current) drug therapy; Z20.822 Contact with and (suspected) exposure to COVID-19
CPT/HCPCS: 36415; 71045; 80048; 80053; 83735; 83880; 84439; 84443; 84484; 85025; 87811; 93005; 93312; 96365; 96366; 96375; 99285; J0282; J0461; J1100; J1940; J2250; J7030; J7040; J7060

== ENCOUNTER 2022-09-03 22:24 | Inpatient (IN) | payer OTHER ==
--- OUTSIDE RECORDS SUMMARY | 2022-09-03 22:29 | XMS REPORT | Continuity of Care Document ---
:1945 Author Organization [facility] t Address [address] [place] [address] [place] [id number] Care Team Providers Name Role Phone SYSTEM, PROVIDER NOT IN Primary Care Physician Unavailable FRIDA HERNANDEZ Attending Clinician Unavailable Frida Hernandez MD Attending Clinician [phone] , [facility] Ct Room Attending Clinician Unavailable FRIDA HERNANDEZ Attending Clinician Unavailable Virtual, Surgeon Attending Clinician Unavailable Zhen Gibson MD Attending Clinician JOY KAUR Attending Clinician Unavailable Doctor Unassigned, [place] Attending Clinician Unavailable Lab, Adc Fam Pob I Attending Clinician Unavailable Nanette Armstrong MD Attending Clinician FRIDA HERNANDEZ Admitting Clinician Unavailable Payers Payer Name Policy Type Policy Number Effective Date Expiration Date Elfego moreira [employer] [id number] 2021 00:00:00 [facility] [id number] [facility] Problems This patient has no known problems. Allergies, Adverse Reactions, Alerts Allergy Allergy Status Severity Reaction(s) Onset Inactive Treating Comm ents Source Name Type Date Date Clinician NO KNOWN Drug Active [facility] NO KNOWN Allergy Active [facility] Social History Social Habit Start Date Stop Date Quantity Comments Source Exposure to 2022-05-12 2022-05-22 Not sure [facility] SARS-CoV-2 (event) 00:00:00 07:17:00 [facility] Sex Assigned At [birth year] [facility] 00:00:00 00:00:00 Smoking Status Start Date Stop Date Source Tobacco smoking consumption unknown [facility] Medications Ordered Filled Start Stop Current Ordering Indication Dosage Frequency Signature Comments Components Source Medication Medication Date Date Medication? Clinician (SIG) Name Name rivaroxaban 2021-06 Yes Take [facility] ([facility]EL[facility]-05 [facility] 20 mg 11:21: daily with Medica l tablet 05 dinner. [place] metoprolol 2021-06 Yes 100mg QD Take [address] succinate 2-05 mg by [facility] (Toprol XL) 11:21: mouth Medic al 100 MG 24 05 daily. [facility] tablet rivaroxaban 2021-06 Yes Take by [facility] (XARELTO) 2-05 [facility] 20 mg 11:21: daily with Medica l tablet 05 dinner. [place] metoprolol 2021-06 Yes 100mg QD Take [address] succinate 2-05 mg [facility] (Toprol XL) 11:21: mouth Medic al 100 MG 24 05 daily. [facility] tablet rivaroxaban 2021-06 Yes Take by [facility] (XARELTO) 2-05 [facility] 20 mg 11:21: daily with Medica l tablet 05 dinner. [place] metoprolol 2021-06 Yes 100mg QD Take [address] succinate 2-05 mg by [facility] (Toprol XL) 11:21: mouth Medic al 100 MG 24 05 daily. [facility] tablet rivaroxaban 2021-06 Yes Take by [facility] (XARELTO) 2-05 [facility] 20 mg 11:21: daily with Medica l tablet 05 dinner. [place] metoprolol 2021-06 Yes 100mg QD Take [address] succinate 2-05 mg by [facility] (Toprol XL) 11:21: mouth Medic al 100 MG 24 05 daily. [facility] tablet rivaroxaban 2021-06 Yes Take by [facility] (XARELTO) 2-05 [facility] 20 mg 11:21: daily with Medica l tablet 05 dinner. [place] metoprolol 2021-06 Yes 100mg QD Take [address] succinate 2-05 mg by [facility] (Toprol XL) 11:21: mouth Medic al 100 MG 24 05 daily. [facility] tablet rivaroxaban 2021-06 Yes Take by [facility] (XARELTO) 2-05 [facility] 20 mg 11:21: daily with Medica l tablet 05 dinner. [place] metoprolol 2021-06 Yes 100mg QD Take [address] succinate 2-05 mg by [facility] (Toprol XL) 11:21: mouth Medic al 100 MG 24 05 daily. Center hr tablet rivaroxaban 2021-06 Yes Take by [facility] (XARELTO) 2-05 [facility] 20 mg 11:21: daily with Medica l tablet 05 dinner. [place] metoprolol 2021-06 Yes 100mg QD Take 100 [...] Systolic blood 2022-05-22 10:36:00 123 mm[Hg] [facility] Diastolic blood 2022-05-22 10:36:00 73 mm[Hg] [facility] Heart rate 2022-05-22 10:36:00 111 /min [facility] Body temperature 2022-05-22 10:36:00 36.06 Martha [facility] Respiratory rate 2022-05-22 10:36:00 16 /min [facility] Oxygen saturation in 2022-05-22 10:36:00 97 /min [facility] Arterial blood by Medical Ce nter Pulse oximetry Body height 2022-05-22 07:20:00 165.1 cm [facility] Body weight 2022-05-22 07:20:00 69.854 kg [facility] BMI 2022-05-22 07:20:00 25.63 kg/m2 [facility] Procedures Procedure Date / Time Performing Clinician Source Performed CT ABDOMEN/PELVIS WITH & 2022-07-06 13:15:00 [facility] WITHOUT IV CONTRAST [facility] CT CHEST WITH IV CONTRAST 2022-07-06 13:15:00 [facility] CBC W/AUTO DIFF WITH 2022-06-27 11:36:00 [facility] COMPREHENSIVE METABOLIC 2022-06-27 11:36:00 [facility] CANCER ANTIGEN 19-9 2022-06-27 11:36:[address] [facility] [address] 2022-05-22 09:52:00 [facility] BIOPSY/ASPIRATION/INJECTI [facility] ON TISSUE EXAM 2022-05-22 09:43:00 [facility] CBC W/PLT COUNT & AUTO 2022-05-22 07:43[facility] PROT[facility]OMBIN TIME/INR 2022-05-22 07:43:[facility] CBC W/PLT COUNT & AUTO 2022-05-22 07:43:00 [facility] (CELLAVISION MANUAL DIFF) 2022-05-22 07:43:00 [facility] AMB REF TO INTERVENTIONAL 2022-04-07 09:10:19 [facility] EXTERNAL Medicine IR PORT-A-CATH PLACEMENT 2022-03-30 10:48:00 Frida Hernandez [facility] CANCER ANTIGEN 19-9 2022-03-16 10:18:00 [facility] AMB REF TO GENETICS 2022-03-16 09:53[facility]11 [facility] SURGICAL PATHOLOGY 2022-03-06 21:56:00 Zhen Gibson [facility] REQUEST CANCER ANTIGEN 19-9 2022-02-24 15:42:37 [facility] ASSIGNMENT OF BENEFITS 2020-05-05 15:07:39 Doctor Unassigned, [facility] [place] [facility] Plan of Care Planned Activity Planned Date Details Comments Source Future Scheduled 2022-08-29 SHINGLES VACCINES ([facility] 14:24[facility]30 of 2) [code = SHINGLES VACCINES (1 of 2)] Future Scheduled 2022-08-29 65+ PNEUMOCOCCAL Methodi Hospital Test 14:24:30 VACCINE (1 - PCV) [code = 65+ PNEUMOCOCCAL VACCINE (1 - PCV)] Future Scheduled 2022-08-29 COVID-19 VACCINE (2 - [facility] Test 14:24:30 Moderna series) [code = COVID-19 VACCINE (2 - Moderna series)] Future Scheduled 2022-08-29 INFLUENZA VACCINE Method ist Hospital Test 14:24:30 [code = INFLUENZA VACCINE] Future Scheduled 2022-08-29 SHINGLES VACCINES (1 [facility] 14:24:30 of 2) [code = SHINGLES VACCINES (1 of 2)] Future Scheduled 2022-08-29 65+ [facility]UMOCOCCAL [facility] Test 14:24:30 VACCINE (1 - PCV) [code = 65+ PNEUMOCOCCAL VACCINE (1 - PCV)] Future Scheduled 2022-08-29 COVID-19 VACCINE (2 - [facility] Test 14:24:30 Moderna series) [code = COVID-19 VACCINE (2 - Moderna series)] Future Scheduled 2022-08-29 INFLUENZA VACCINE Method ist Hospital Test 14:24:30 [code = INFLUENZA VACCINE] Future Scheduled 2022-07-18 SHINGLES VACCINES (1 [facility] Test 16:41:53 of 2) [code = SHINGLES VACCINES (1 of 2)] Future Scheduled 2022-07-18 65+ [facility]UMOCOCCAL [facility] Test 16:41:53 VACCINE (1 - PCV) [code = 65+ PNEUMOCOCCAL VACCINE (1 - PCV)] Future Scheduled 2022-07-18 COVID-19 VACCINE (2 - [facility] Test 16:41:53 Moderna series) [code = [...] Medical C enter SCREENING] Future Scheduled 2022-04-20 HEPATITIS B VACCINES [facility] Test 10:25:30 (1 of 3 - 3-dose series) [code = HEPATITIS B VACCINES (1 of 3 - 3-dose series)] Future Scheduled 2022-04-20 SHINGLES VACCINES (1 [facility] Test 10:25:30 of 2) [code = SHINGLES VACCINES (1 of 2)] Future Scheduled 2022-04-20 65+ PNEUMOCOCCAL Methodi Hospital Test 10:25:30 VACCINE (1 - PCV) [code = 65+ PNEUMOCOCCAL VACCINE (1 - PCV)] Future Scheduled 2022-04-20 COVID-19 VACCINE (2 - Me [facility] Test 10:25:30 Moderna series) [code = COVID-19 VACCINE (2 - Moderna series)] Future Scheduled 2022-04-20 INFLUENZA VACCINE Method [facility] Test 10:25:30 [code = INFLUENZA VACCINE] Future Scheduled 2022-04-20 HEPATITIS B VACCINES [facility] Test 10:25:30 (1 of 3 - 3-dose series) [code = HEPATITIS B VACCINES (1 of 3 - 3-dose series)] Future Scheduled 2022-04-20 SHINGLES VACCINES (1 [facility] Test 10:25:30 of 2) [code = SHINGLES VACCINES (1 of 2)] Future Scheduled 2022-04-20 65+ PNEUMOCOCCAL Methodi Hospital Test 10:25:30 VACCINE (1 - PCV) [code = 65+ PNEUMOCOCCAL VACCINE (1 - PCV)] Future Scheduled 2022-04-20 COVID-19 VACCINE (2 - Me [facility] Test 10:25:30 Moderna series) [code = COVID-19 VACCINE (2 - Moderna series)] Future Scheduled 2022-04-20 INFLUENZA VACCINE Method [facility] Test 10:25:30 [code = INFLUENZA VACCINE] Future Scheduled 2022-04-12 HEPATITIS B VACCINES [facility] Test 15:39:08 (1 of 3 - 3-dose series) [code = HEPATITIS B VACCINES (1 of 3 - 3-dose series)] Future Scheduled 2022-04-12 SHINGLES VACCINES (1 [facility] Test 15:39:08 of 2) [code = SHINGLES VACCINES (1 of 2)] Future Scheduled 2022-04-12 65+ PNEUMOCOCCAL Methodi Hospital Test 15:39:08 VACCINE (1 - PCV) [code = 65+ PNEUMOCOCCAL VACCINE (1 - PCV)] Future Scheduled 2022-04-12 COVID-19 VACCINE (2 - Me [facility] Hospital Test 15:39:08 Moderna series) [code = COVID-19 VACCINE (2 - Moderna series)] Future Scheduled 2022-04-12 INFLUENZA VACCINE Method ist Hospital Test 15:39:08 [code = INFLUENZA VACCINE] Future Scheduled 2022-03-30 INFLUENZA VACCINE Method [facility] Test 10:58:22 [code = INFLUENZA VACCINE] Future Scheduled 2022-03-30 HEPATITIS B VACCINES [facility] Test 10:58:22 (1 of 3 - 3-dose series) [code = HEPATITIS B VACCINES (1 of 3 - 3-dose series)] Future Scheduled 2022-03-30 SHINGLES VACCINES (1 [facility] Test 10:58:22 of 2) [code = SHINGLES VACCINES (1 of 2)] Future Scheduled 2022-03-30 65+ PNEUMOCOCCAL Methodi Hospital Test 10:58:22 VACCINE (1 - PCV) [code = 65+ PNEUMOCOCCAL VACCINE (1 - PCV)] Future Scheduled 2022-03-30 COVID-19 VACCINE (2 - Me [facility] Hospital Test 10:58:22 Moderna series) [code = [...] DXA [facility] Test 00:00:00 SCAN] [facility] Future Scheduled 1945 DXA SCAN [code = DXA [facility] Test 00:00:00 SCAN] [facility] Future Scheduled 1945 DXA SCAN [code = DXA [facility] Test 00:00:00 SCAN] [facility] Future Scheduled 1945 DXA SCAN [code = DXA [facility] Test 00:00:00 SCAN] [facility] Future Scheduled 1945 DXA SCAN [code = DXA [facility] Test 00:00:00 SCAN] Medical Center Encounters Start End Encounter Admission Attending Care Care Encounter Source Date/Time Date/Time Type Type Clinicians Facility Department ID 2022-07-06 2022-07-06 Outpatient MARANDA JAMESON [facility] [id number] [facility] 12:34:54 23:59:00 [facility] 2022-07-06 2022-07-06 [facility] [id number] [facility] 12:34:54 23:59:00 Encounter 1, [facility] Room [facility] 2022-07-06 2022-07-06 [facility] [id number] [facility] 12:34:54 23:59:00 Encounter 1, [facility] Room [facility] 2022-07-06 2022-07-06 Outpatient MARANDA JAMESON [facility] [id number] [facility] 12:34:35 23:59:00 [facility] 2022-07-06 2022-07-[address] [facility] [id number] [facility] 12:34:35 23:59:00 [facility] 2022-07-06 2022-07-06 [facility] Frida Hernandez [facility] [id number] [facility] 12:34:35 23:59:00 Encounter [facility] 2022-06-27 2022-06-27 Outpatient DAVID [facility] [id number] [facility] 10:24:18 11:17:04 [facility] Nelida garland of Medicin e 2022-06-27 2022-06-27 Orders [facility] [id number] 00:00:00 00:00:00 Only [facility] 2022-06-27 2022-06-27 Orders [facility] [id number] 00:00:00 00:00:00 Only [facility] 2022-05-22 2022-05-22 Outpatient [facility] [id number] [facility] 09:01:11 23:59:00 [facility] 2022-05-22 2022-05-22 [facility] [id number] [facility] 08:00:00 23:59:00 Encounter [facility] 2022-05-22 2022-05-22 [facility] [id number] [facility] 08:00:00 23:59:00 Encounter [facility] 2022-05-22 2022-05-22 Outpatient DAVID [facility] Surgery [id number] [facility] 06:07:00 11:19:00 [facility] 2022-05-22 2022-05-22 [facility] [id number] 06:07:00 11:19:00 Encounter [facility] 2022-05-22 2022-05-22 [facility], [facility] [id number] 06:07:00 11:19:00 Encounter [facility] 2022-05-22 2022-05-22 Surgery Virtual, [facility] [id number] 07:30:00 08:00:00 [facility] 2022-05-22 2022-05-22 Surgery Virtual, [facility] [id number] 07:30:00 08:00:00 [facility] 2022-05-22 2022-05-22 Travel [facility] [id number] [facility] 00:00:00 00:00:00 [facility] 2022-05-22 2022-05-22 Travel [facility] [id number] [facility] 00:[facility]:00 00:00:00 [facility] 2022-05-18 2022-05-18 [facility] [id number] [facility] 00:00:00 00:00:00 [facility] 2022-04-12 2022-04-12 Outside [facility], [facility] [id number] 00:00:00 00:00:00 Orders [facility] 2022-04-12 2022-04-12 Outside [facility], [facility] [id number] 00:00:00 00:00:00 Orders [facility] 2022-04-06 2022-04-06 Outpatient [facility] [id number] [facility] 11:11:32 12:07:32 [facility] Nelida garland of Medicin e 2022-04-27 2022-03-30 Outpatient DAVID [facility] General Med 2 [id number] [facility] 18:24:55 11:57:00 [facility] 2022-03-30 2022-03-30 [facility], [facility] [id number] 08:00:00 11:57:00 Encounter [facility] 2022-03-30 2022-03-30 Hospital David, [facility] [id number] 08:00:00 11:57:00 Encounter Fridaprincess Saleem [facility] 2022-03-16 2022-03-16 Outpatient [facility] [id number] [facility] 08:09:28 09:35:47 FRIDA Krause e of Medicin e 2022-03-16 2022-03-16 [id number] 00:00:00 00:00:00 Only [facility] 2022-03-16 2022-03-16 [facility] [id number] [facility] [facility] 00:00:00 00:00:00 Only [facility] 2022-03-06 2022-03-06 Lab Paige, 1.2.840.1 [id number] Methodi 16:50:00 16:55:[address] 3.430.2.7 Hospit a .3.555723 l .8 2022-03-06 2022-03-06 Lab Paige 1.2.840.1 [id number] Methodi 16:50:00 16:55:[address] 3.430.2.7 Hospit a .3.659193 l .8 2022-02-24 2022-02-24 Outpatient NAT[facility] [id number] [facility] 14:15:21 15:35:35 JOY garland of Medicin e 2020-05-10 2020-05-10 Letter Doctor REANNA 1.2.840.114 [id number] Univers 00:00:00 00:00:00 (Out) Unassigned, JAMES 350.1.13.10 ity of [place] [facility] 4.2.7.2.686 Franky as [phone] [place] [id number] Branch 2020-05-05 2020-05-05 Laboratory Lab, Adc Fam Pob I [facility] 1.2. 840.114 [id number] Univers 09:06:24 09:26:24 Only Nanette Armstrong [facility] 350.1.13.1 0 ity of [place] 4.2.7.2.686 Franky as Professio [phone] Mn dical nal 0[address] 2020-05-05 2020-05-05 Outpatient R [facility] [id number] Univers 09:20:00 09:20:00 ity of [facility] 2020-05-05 2020-05-05 Orders Doctor REANNA 1.2.840.114 [id number] Univers 00:00:00 00:00:00 Only Unassigned, JAMES 350.1.13.10 ity of [place] [facility] 4.2.7.2.686 Franky as [phone] [address] Results Test Description Test Time Test Comments Results Result Sour e Comments ANG, TUNNEL CATH 2022-06-19 pancreatic cancer; PORT * CENTRAL INS 9 for chemotherapyReason W/PORT C 14:40:00 for Exam:->Malignant neoplasm of body [facility] JUSTINE SHERMAN : 1945 Sex: F FINAL [facility] 1945[place] [id number] Right internal jugular chest port insertion History: [...] the patient's medical record by the nurse. Vb Developer: Kalli Rodriguez MD Mop Worker: None. Approach: Right internal jugular vein Estimated [...] needle into the right atrium. A 4 Lithuanian micropuncture sheath was placed and a 0.035 [...] MDReport Verified Date/Time: 07/16/2022 14:40:49 Reading Location: [facility] B1 P048 Angio Body Reading Room , ABDOMEN 2022-06-18 pancreatic cancer 9 restagingWithin 1 15:28:00 weekRelease to patient->ImmediateWhich [facility] radiology location is CENTERName: WH[facility], preferred?->Romi FLETCHER CARLOS : n for exam:->PANCREAS 1945 Sex: protocol - pancreatic F cancerInsurance Company ID = [id number]; Insurance Company Name = [employer]; Insurance REPORT PATIENT ID: Company Phone Number = [phone] CT of the ; Policy Number = abdomen with and [id number] without contrast, CT of chest and pelvis [...] There is trace left effusion, and a hcoib-mo-ntiulidk right-sided effusion, associated with relaxation atelectasis of [...] Small right pleural effusion. Emphysema. Signed: Bita Holt MDRort Verified Date/Time: 07/06/2022 15:28:04 Reading Location: [facility] B1 C013X [facility] Consult Reading Room , CHEST, WITH 2022-06-18 pancreatic cancer IV CONTRAST 9 restagingWithin 1 15:28:00 weekRelease to patient->ImmediateWhich [facility] radiology location is CENTERName: WHIT, preferred?->Romi GONZALEZ : n for exam:->pancreatic 1945 Sex: cancer F restagingInsurance Company ID = [id number]; Insurance Company Name FINAL = [facility]; REPORT PATIENT ID: Insurance Company Phone [phone] CT of the Number = ; Policy abdomen with and Number = [id number] without contrast, CT of chest and pelvis [...] There is trace left effusion, and a tptke-vx-yedwpgwh right-sided effusion, associated with relaxation atelectasis of [...] Small right pleural effusion. Emphysema. Signed: [facility] Verified Date/Time: 07/06/2022 15:28:04 Reading Location: [facility] C013X Ortho Consult Reading Room Tissue Exam 2022-05-24 11:55:54 Test Item Value Reference Range Interpretation Comme nts Case Report (test code = 104) Surgical Pathology Report Case: [id number] Authorizing Provider: Frida Hernandez, Collected: 05/22/2022 09:43 AM Ordering Location: [facility] PERIOPERATIVE Received: 05/22/2022 12:28 PM SERVICES Pathologist: Galilea Em MD Specimen: Bone, T 12 DIAGNOSIS (test code = 3220) k4opqTRrDKTya5mpUEJpcTVoToSmFdKjSvMmNy pc dWMxIHtccnRmMVxlcGljOTYwMlxhbnNpXHNwbHRw [file] YWdlXHBnbmNvbnRccGduZGVjXHBsYWluXHBsYWlu XGYwXGZzMjRccWxcbGFuZzEwMzNcaGljaFxmMVxk JiVuCKWnKIbtQ4zcFcSnFjSaUov5LKXpzMIhEEVn Zlq8PKAvnDIqYQFUsMwqaS5cKZKswNvmxA0icZE0 JUKsogJqjPWImL3bBVDWhS9wUjH6HhInWnV4AVh0 OTFccGFyfX0= COMMENT (test code = 3359) j8uxkAKoOJUygWD8AiXxWWSly8ahl8TrqQKyzXCe FJzuzOLakfIpnc56cTP7oI02GS8cDBZuSoF3QQFa wlJ3Dny0GOOhMDDdwLUzJ000m8pef7avwwSyxKJ2 vBjqIJSqmrwkHrP1MMnmQNLtfgguYZt8QShoKIFc rVE4DVCosJSjW1EdYGKmRG5zvdv7JQY9XZubEYSv LgS2QIXqrXRnAFUbnAthJCtex189IZS9CrDdLZWe nkVgtIwmmI1pUoPhTBUKafW4kMioKVKruOptpcUj x8n1oNTxKIoxbaLxEAiho0Hznptmb1VrYwNrw3Iu okX8ZFx1UGHxCXTfj3NodLYuuBCpCHMbgxKgZWKl HPSxRN2rjzMohVrqVMIcWQ8vA4XbN7vmo65bPZjf YQCuFGIuy0Z6OQ3hPYRlSVEoSC5umyCmwyislk5j DzGneNSyYBXxi5JzxKSulLtdJF9jwVOsWCYzjOjj kXCpHdZtNSPmW1fvkeftTTdezMYqsACfjKRez0Al MHQzoQRdlSPoiG1ma6vyjvOxjsPmQ6I5OJWjhBMd XHBhcn0= CPT Code(s) (test code = 4737) j7spxGXhLMHbeDH9UlRaHZCgd3zuz2ByuUDy cGFy ELvpaIHoaeDviq51nGP2pQ62RD3mLXMqEaU4JBGn viR4Rxq1UERnAKCuwEZrB316n6nxw5sufyNkgUG5 xQrvGOSjjygmXxU3RXxcUZIwsdgkYOc6JFgtCVGu fAI4OHHpcDWxV5MhKLKgZA1ayki8RUX4DUssNJQa UvI0TKQhfFSaFUNjkAyyQCcim659PYO8HtBjYWLz epZthHwudK2sUhAbWAG7QPRbI4abLCHcVFqsOXS3 HCxlFVRkYBwiAHL2DCekKTY0 CLINICAL HISTORY (test code = 1859) v8nasQKoCPDolJW3WtZdTOMxk4buc5L sdHBncGFy JImxiHEyunCsna44cTX8xC06SC0nINInQcU7EHYc fgY6Gyo1MJFcAPYmkUCtB547f2kfk6bcsbHvsSM4 sRfiXOUmzzatLbP0WXhnXTVqqkwzKOd6UPhgTOJn nMO9WQByjLFzQ6FbVVIsFV5kosw5JQI7KKkhBHFz YjW8ZRPxfPFaHDUkuQiiRHqau507JUS6HdPjMUKv edOnxUvhhV5qQoVcPXYZYSavY81dcnEcvtMfcIsl p10sn2HtOk9txDEuSaDkRF1tmoVza9rrHFX6 GROSS DESCRIPTION (test code = u9lkeJGvMIAyqXXGJQYxX5etvzPfCVShjWCq [facility] [id number]) [file] FIEYXzwrcmG4g6kyoRpnv4GoiNQmTL3YPf0= MICROSCOPIC DESCRIPTION (test code = b3qxsLTeHCNrbRX3EoCxDUEin6mtg6 BsBncGFy 3371) QPhhpZTnrvMdti17vWK9pR59QL2tGGIdYqV0ICVc hzA3Kib9YVCjVYPgsILuY187p5eof9ksgvMhfFF0 dBlnYATsenadTvW4BRsqHKQxzckdTOe4GFjlGAHc hKR1GPLfcUEhT1VjBICvSH8cunx6BBJ7EVhaIUCf MqZ3YKNmwPVvCEZjbVsmUGkgn822WIV0GgXrAGNh caWeaPuexY0aBrCbTSQTpU73ky4wvTJ4u6RfFS1c T5WcTBQ4REncSJDGUH1BCTJgx8MpRCZbjaZsbu2u AMA9nCekoSIze7XjMK0faJFngWtmkZblcJVfIR38 RKI2rB6eFAPjqVhgKzHlB6gqUOJ8r0MrtDBgfhHs lN88nc5prDL7f1UzWT8bR4IaSBN0JYdwMUadMM1b H9Y2yGAkRPFwrfO0jD5izlIqGMuma2rdYTR1 SPECIAL STUDIES (test code = 3376) h2tmtSVoBQUrw9rxCNNxgPXjTbWdUcTc ZnRuYmpc fXChLZnilcOrNXrfa7XwN7TmDzKmKIybtaLzTZFp XmrqjnssEGQhFCB8tfXnSKGuVKrpFFQpXCgdOb2b bEEpkHpaBkQcAWDpi4aalqTNzwarpNl2p8zuAQBw EkT7wDSsIIsiF2oufwPldHWxC3HpsNLlpWo0u4ju ZyQyDzV7pFLmPPqqE2ckjmWkoMEaDHNkVFo9lQ34 BJXrtO8acNBjUFaosmZkIwP1JOdpJXRyCpB4UFJc mGKtPNArB3tzYEKvRPozHYVePMtfbVOiCMG8rQwi l1O2bSVbtKHfrPhcHmKzVaGoKoQJb6RnBYh0sJax U4McAVAwGsJ9aBKaYVZzEPkgOEBpTOMohgG4oLdj yiJpu38krNHtILJuWGUaRjRcnPwqASAhIBAHt9Zu yYmyRSY4mCr0yRfiDjmrCLR2Bew3DW2lgr15yuv5 aVrdQRWlnbkmDhN2WVcaJXNeterzYKr8SInnGVBs rCU6MYZoeKIhI8IuDXRuUE5tiam4GZJ2AAmpLPXb UdT7AVNxvRDtFIOokOhfXZpso554TFX5LkRhJI9n Q2Gjx1K8yT5vrMXjRLGbaGVaLtMfTCEdhd9dmPRj VYfsk4KnRUM0slC4pKRkzBAdBCBySD67Hmtsf9Bw Vmmbw6OtY52nuAW1GXwbw7hlQR8rRdM7yoBaKTyi i1fpsN0lZaL6OEjgRG4qDQ9nFNDdiC3deqngZZOg EeXycfrlOBFumMeiqvSjUv2nyWesXIQ8QWduI6ni lY8cOcJ5QVuzC0heiG9iFDy2VPjpaTY1ILJrmB2t BI4yvhstl6wqUMyaPAugTNMmhiP8ueH4ANKacSUn N7SxcG3rJUWcKN1gperpj6ttFGI4GJehROAiSGV1 QxNtGQFex2Rvmqw1OjLmu0NwhKWzXCkxQ71rk411 WGRoonThZ4xfpHWvanazaBMyfiprYCmfdwJ6OBTl XHBsYWluXGYxXGZzMjJcbGFuZzEwMzNcaGljaFxm IUlnQxQiBUXrNRqvD5gyZzUyF6NkZMPiAtNoZQps OJddaVIdyFEamTZ1iN0lZC1lEJYizSOnC5SzIPOf vsOfqJAfATB6qPRstQZtJT6lCNtjbQDgb0nvp1Ai V6vqxWcmrXX5ZS1bXDHhSVBmVUuze9TxfT5fTqwn tUAxbiteYCqwkuQpZPcsxyyeICEdSErkE2tjMwXq LEKryHmgILgxz6AtVRWmBFOmFmddosHgKNj8wtPq VOQezlolOJUcoDolmU4bEdOxFoThDkrvLX5lJMEw C8lezFUnJWBtOEBrE3thNeGbwG6grUucEPvpVpXx AoTkZtXMq643fy4uNXVxlZOputBKkZRuaS0pIXgs BYadZTaoiMCfBVqfc7auXRTtf6z9lHNkDJSqzcMj j7asGPvrlrFzKROdoIXmoPHlBRTem10aIMeeyIjh eGiaRVWlv2QzjNwqr0HqNrBgQVyxk2SjN24mpEOi fIOrnIbtRYOalkWiJKDbw74jt3biBNTtRjR5kQSe iMM5nTTmkHRgv5WbzAywMBTni2qcPIQsva6hbpow mUOmb0RbvK4akzyxWNvhsXGistSyPBCfv1s3vSYk NETnKDAiQUxqtMi3UMKqk792sv3rivP7oCCmHBP7 YWlsYWJsZSBhcmUgZXZhbHVhdGVkXHBsYWluXGYx XGZzMjJcbGFuZzEwMzNcaGljaFxmMVxkYmNoXGYx FRciJ9ksTtMjA2FpLGDoShZlsDMjT1yuuNPyFAJo YWluXGYxXGZzMjJcbGFuZzEwMzNcaGljaFxmMVxk CoZzXPZjZAyaM5weLsLdH2KaLIHjLqGdDPiioFRa loukEMeonjDrIQqibxcmPLUyEEufG1phVjXmMZMu vTxcZFppg1VdSHPkMQHzMxethcVwGSs4lqRgYHDi dhtdcCMlytikMUvwojAxUAibwwfvZFKbHChgP0fb [file] WxejFVZ0dB== Gross assessment was performed at (test [facility] enter, code = 2777) Department of Pathology, [address] [place] [address], Technical component was performed at [facility] er, (test code = 2778) Department of Pathology, [address] [place] [id number], Professional component was performed at [facility] enter, (test code = 2779) Department of Pathology, [address] [place] [address], [facility] [id number] 11:55:54 Test Item Value Reference Range Interpretation Comments Case Report (test code Surgical Pathology = 104) Report Case: [id number] Authorizing Provider: Frida Hernandez, Collected: 05/22/2022 09:43 AM Ordering Location: [facility] Received: 05/22/2022 12:28 PM SERVICES Pathologist: Galilea Em MD Specimen: Bone, T 12 DIAGNOSIS (test code = [id number] 3220) uZzEwMzNcZnRuYmpcdWMxIH tccnRmMVxlcGljOTYwMlxhb sNaLCSjgNGaH1TwnpuwELhd OC2tCD0wvZlybZLvhQQjALX iLlUtw3jqk028gGHzb5ikDD AScthbhKp8lCrhB87va6I3A rtwM95xjRXpHBF5NULdEJRc oTThYRYnEIK4MQKhrOCdK4n pGLFfSB7seuumHIijQNrrGA LhmIJ4DZTjlFZqG0BrFVUuB UauLLOketh3UaGpNp4qaZFv eTcyMFxwYXJkXHBsYWluXGZ sXhXjLY4aQNCuRcKJD54LJT OLJ5QHJTxmFQShWNb0VBrpx hReVH6iTIJeHyKkXDQilkVj xAXjjX4jxHAcgHubd3RpRDk gqoDcSvHgKTNggjFxAu8qDI 9chPmjvtGxF3vrcIIqyTzok jFrQTcst7BiAToxXIUhDU1x uUhaOETdXY6lUBHzD6naqS5 xxhw0AfCmUSPaMvI8DHRtyd Q1Kpp9GGEgZXizn2xby7ZtE ZAzJWc4jFsaHcZlCMFqu8pz cyBcZmNoYXJzZXQwIEFyaWF aU537h8fjp1fiqiDjqFV1JV QoQDA5SAsxgoXgvlU2MIymv WZxGpJ5XSwftgHyHRtnebNw ymLzZio5IAXuK795QXF3pPz fw4skUMW0DHPrVUCuBjSoPi 4ktABbC048LGHbEZAJODGnc Nj1QLAcwlBakjTfxGFQz374 M852i0tfXERyizQnaPySnsp il6xpF087GASrmSRtgpMoBk DdJVTvfXRleZD0KJFyST7pk speYVceCOquKPQfstC7WUIl xBTrY0GtFDAwBP4wyjyfYDO 4KIxaYWWnTVO5KoLxAQMet9 Myhgy5JnXicu8yin12PSG4l 8LfnDiuYLD3PPV3DkBuBp4f jHUsWCHuPT7qIhBjuUTeJIP omz99mRdgRRdxKTM2QRIxhz Jtu7Otz5ofRxGrnbBqN2ckU 2JyZHJoZWFkXHBnYnJkcmZv k6Cel0AdlCDeuMq9i7pyWOQ iSVQxvDpsu5njQJR7QSHpoJ LwO5unfW9wLRBzJJ2uzlczh 6ueDYymWKvfVMTfkPU2duD3 HQRoiHKdG5NehR1wOWGpCCi hXXOwyds3JzDrZu0fpUVgmN cyMFxzYmtwYWdlXHBnbmNvb nRccGduZGVjXHBsYWluXHBs YWluXGYwXGZzMjRccWxcbGF uZzEwMzNcaGljaFxmMVxkYm PxZLFmSUmmG2sjLpWiUoTdQ qt0ZYHweVGaXCTqUve3NIXj aDSiUNFZxQyrvQ1mHLBnsTm txF2qfFK0GFHkwsOapNGKjO 7uDKQHqJ8cMpY9RqHjPqH7V Va9IPHdyGLybN8= COMMENT (test code = h3xggJNcPGHqoLD7ChWaDLK 3350) ne1web0AciUKtlATpMSmjeU OljmJdag43oJD7mW94TL7zX YTfPuW1XFThzdE7Efb7BLQt VEAnkKUjC343o8zuv6sfmeO gnUM1tLvgEFKxzirqUuI8KJ jtNZLqxlagUYr5FNjjRLVvy CB5JETxuMLbB5ReLCAaCT7f rbd0KBB5MEvgPISeLfT7VSU nsMRwEWWunHvsIJvlv195DA B5SiUzAVGwalQzbObylN3hD uTvZHLXwzX5uBpgGZGhiQem swIrh1l0yTRoZBwwaiEjFHn nm9Tzshqfb6VaHeDlb1Wymr G8BCr2AZQpGXXsj0AcvIUlj NEhCFUgaiGpJOMaLRXqAA5n grGcnSdfSQIfPA4vO8GgQ0q oe11sPClwIJPiIYZxs9X2OB 5pJXBkZWNyLB6avnHqohhlb g4mAoLypDBzANJxs2CwyHGg eAbqIY6exWFeKJIyjJxtcSZ wOhNaXYRjE0pxgwkvEFezqL HrcIPojIPbd8UzXYLbxNUrh XRymS2wz9skgmGidnKwT9W4 ZWRccGFyXHBhcn0= CPT Code(s) (test code e1ihwBDhFBUtdED0CjNiOAB = 3357) yf3anx7AjmUVunATpRDsdeR EkrnAtvj18bGB3oN36SU9xX QLhQwV3XPEwmgY7Bkk1OEJw YKOskNIpJ298f9ctg2bhuoA kjMS7hCaePKAvdmoqLsL6PX wvDUGtvrxkDBw5NDzoLSUhd EY7DVXqsYDpH7EvUZKjUK4f ssy8DYY1OPamHODwHoN3JHY ncLXmEERksRnmFKeok191CQ D6VmPtSPUibvYiiNtjhK1kA rNoFHA2AGPzL4nqAWMjLRnk UZL4TMnyVRHrYPjaBAS7LAa wYXJ9 CLINICAL HISTORY (test t5wdaPIcEPJncNK5XtPhPJF code = 3356) yy5muj7JpvIVitKXuUQvwxS KrnzCpde38cOV8eJ46TA4oC XAoTfL2RCBqqyE7Asr0ALMn WXPdiMGhS580k6tfi3kqmdE fxZA2mWdfCJVruvpsVfL3YP vxVUGcsfbeZTy2RVmtTTGdv RT7LPLxyNRzL0WlQYCyIV4s rhz2YXF0WToqHVOgKgR5SZA xfWLeWYJqcZzvWKbwz304OL O7NdQqYSTsjjGerLexqZ4cN wQaYDHTTYzzM01pvfOzyyLg fVhaf75mo4IhXz9wwCNhYcQ sYM2durJoc7rwCMQ1 GROSS DESCRIPTION h3hehQEbMFYgbRNXCPReS7b (test code = xdoIqFIKdcIRvC4HgnjfcGM [id number]) qkSJ4dJO1cuJyplJQvhLJuE F9FNGJjBsFeJDJcfSOpmwYm EjUjXWUmbQImfDD3ZVYnQX4 mtflpRHzfGGvlKKQyatE8HW MhxRCvT6VsIFHdKG3jkexkD YH1WCotrA2aguNEHzhjZe0r dHRibHtcZjFcZmNoYXJzZXQ xGZLvoPceYUMgTDb5gK3CVs hyMCI1WEZDLdmwVRSbOC7Ma 3goRLTuhDPsGRE2YJtfqUPb GFXaAIOtVTh0LINpLTefsCT lUA0igRfiBnuqiYvny1EegG BcXGlkIDUxMDAyIFxcZGIgI O1BEiJrKQF9IaR1WlTdGPo7 GVq6VU2AIcKfWORtXAS8JEZ 1UzWzXNy4DWdrVM0WJJU5Kn L4CeJ0EeT6COZ1HiLuALBcU iBcXGYgQXJpYWwgXFxmbCBc AA0neWorhBYcppSSDvNWw21 sPitmSLMaHZzkQCXwF02eu0 ZVt3ZlKF2BFYg4qfUcfbmpt D5tCWAzgeLkUDzdmUMnD0yn ZnMyMCBSZWNlaXZlZCBpbiB ku1XnKOmxjoQvWXOptDNkIR dpdGggdGhlIHBhdGllbnQnc qPxCH8hAQUaA0Nly8Cdu56y bnVtYmVyIGFuZCAiVDEyIGJ qjzUbOUOdAZSmDVRsoi04BD zhd1jfSURnUYOlB4DlYIGqE KYzf67wVWWzcyRtZH7bGWH1 jshmZlJ8nFH3mqDpJjxxJ20 xbK0zE5LfMJSny4GgmYRhE0 WrVOH8RRWlTkRblBVtqbFmo MFvXYCdviwmp6pwZ7kkWBTu HGV5Gf6waDCjKEFmuqF1i8O rDKuxPSPzWGPyxJiyv6jyPp BsaWdodCBkZWNhbGNpZmljY DGoa59eMWcnllOnHYjlbbAw UGlsYXIgQXJndWVsbGVzLCB NIUjxAMPjVEEDO7MpOFmgnI ldjU3jEAKpW67ie4QGv2CvZ OAdQOzex5zwmEjbh7KyvUCx NVsmBJIwvHBiNWgmfC1vYiY qi3kyzRq6TYcpfuM6TEOirf 3DYhxujZ8dVcKsj4kqfHb1K DZXHqzfrqD3a7pvoKqgz4Og vRRqNW1QEg3= MICROSCOPIC m7itrQYpSWGnpHD5XqTqUHO DESCRIPTION (test code rm6pyy5GuqEVfgWWaUKqmnW = 3371) TzfjWclp11aHN3pN53MP0qW KEaPmC2COHaxiB0Fdh9THSz OFZesTXqT463a0iai5zqscQ nwTI7cZisTDQulazfFqM0NK bnLFZzaeifVHh4OAioTMLgz WO9PITjlLGeR3OlANKgJL1i ony2MND7ILgmVTQxNaF0RIY hvTMiQQIrcBjlYVdxs502KP D3DwWdLLQsuuAcaZqqrQ8uA iXwUYWPiR44ag3wnSK0e4Ee HU9iJ5MwHJV8XAxrDCIQMY5 IYMXmd6HpDCZrovPlqk3xHV P5tLcevOVql4JyDD9jfUChi GelgLgtzYGaNW75TLV7aT9o SFWxkMdwBcEaF9edMTD8y5P rdLOpblVshZ77gc0hvFT9v6 SsNI0sY0AmEBY3BOdlWPiuF P5fO3D5uYGyXKEjadE7yF9c jlNkATqlp5pjDOD1 SPECIAL STUDIES (test i0jcyHZlQNQex9gsFMKxkHO code = 3373) uZzEwMzNcZnRuYmpcdWMxIH syqiGeQZdnd0TiF2FqTvSvO FxhbnNpXGRlZmxhbmcxMDMz ATQ2gkYaPQBvRPqkQIAaYEm cAz3caYAicCkfHnGjQGWkt9 dczeEAyoethGq4k7wwQKAaM aH7vEJcOEhfU1mbcoGpzPMt K0AmeJLleTn9f6uyWvFqXwF 3eQFbWSwlA7kyjuPagWVzQP JfTCh4gD05GFVdgE4ayDIuD PularWpYtM1MSvmCKCkSwK5 QONlzDXyCONyI5ebNIKqEEf mAJMpVVtpsHTdUXD4zXwxr0 Z6mPHzkGPysNnpHcXzCsUkV oULa7BmEWh0eYcpE3LbRQIp BtI3wYGlLNMtSIrgALUsKUY vkyZ8oBdwexHzz23ksLBeIU YwXGZzMjBcbGkwXHJpMCBDb 4QtpVozMFY1vZg3pMutMyry ZQU6Ivl9SP0zrn66wxf6nHh tQITsebreOaH7GUbcNUClor brSXq0OGhoCCMmfWS6ABQvd EPuN2SsVDPhGV2geep3STB2 ENecQOSzZuN5PWWlfNOjPDG hfLmoPEemh140PSX8ZeIyDO 4eM8Dzd6L3pL5hwEMvTYPvx EWpRaHjADBkju3ncGDuGIbr c4RiPGJ9djL2sRUbiTIdIQY jVB90Bxpqc5TpJvidv2UkJ2 4gbXI1EEzbg9uxOV7dJmN7h dPmUDoed0vcuA6nRfR3TAol WY2fMG8sGCBsjW0dwtofWYR nYnJkcmhlYWRccGdicmRyZm 2xiBwgITQ4DUfrE9wmxP7hV pI3BFiwG1stwT9xIEy7WWwv vJK5QEXusN9xUT6tnjfll8d lLJzmXYzxHYCmucP2zeC3WI KcsCDnG9CxzZ7jGIDcJN7ky gtyh0qnXJL9PHgtBJUuUXZ4 EjDtLAWyf0Zbtas7YpTav1C kcBHbZNlsK01xe493FLCdap SuP1egqDFqrvivhVUojphvE KenrfB7BXMeBEDzQSxrIHOx XGZzMjJcbGFuZzEwMzNcaGl jaFxmMVxkYmNoXGYxXGxvY2 miHxAsK7WwKWBlWqQmGVhnC ZaetAHjkWVamIX0iJ8xBM0u YQIsjMNxQ5DfAACgypCwqWA eCEK8fJPziLGnFQ0lLDtxqW Phy4xsc5EtT6ilaDelxTA4N S7rZCCzCAQvKFszq6JeqJ6u LlxwbGFpblxmMVxmczIyXGx katumXPTsOCcgM2ugAjIbBP NkaEzsIGldu4BrGGHiROYwU xjwzcLmNIy9qxTtZAIjuzww HCKojArquY0fRpRaEkHfRyx vZZ2tLFWfE0mzeUHnEIAiBO BtM6ywRkJawE9ymZsyEOuyK vChPeDsZwFUm133sq8oRPPu zNCyqqTFxEMusI2lMJuoFIl vFEqclGQjZFbpc1lvLCQvs6 z6xORoWDNvmgBnm6ebEDiqn mOdVBNjmLToyNCyGRQpj93b ZAtuzLbotNopHPNoj4QpoKo hp7SqVkCyROoxn2JnX02ucS JvbCBzbGlkZXMgcnVuIGFsb 76vc2mtAULyIuU7bUJmaDH8 fAEpzSNoc2YwqIkgWBScj8x lDVXwjn5sjicyhWCdt3OtkK 5pbmcuIEludGVybmFsIHBvc 3x2gBFjVPGjMKWuQYrrnMv4 CIEvi463lj9mufE7vDLbNJU 2YWlsYWJsZSBhcmUgZXZhbH VhdGVkXHBsYWluXGYxXGZzM jJcbGFuZzEwMzNcaGljaFxm FSetFlNmMHQdJBbkC4ovJoS oM6OzYTRxWdEckDWwW1dblH FyXHBsYWluXGYxXGZzMjJcb GFuZzEwMzNcaGljaFxmMVxk TbFuDJBuSRbvL8saEmEvR2W yXGZzMjIgIFxwbGFpblxmMV xmczIyXGxhbmcxMDMzXGhpY 8yjRdKkAMJpsUkxIYalk6Ee OWHsBPDwThoqalDsYMg1aiQ oXHBhclxwbGFpblxmMVxmcz WoXQkxmuxzMJYlJZrkQ8rpA iJvZNJbzYddSIzpq4BuMIRd HOGwDzxhswMqUUygjIVhv4n gx3KuR0gqsItisON3ZENyG9 ptkRNyeRJ8UNC7iA5wOBmpt sMeGDTxn3MdNSJoCGMtBzS6 uA0kQUL3XmQAfNqhGKWpPJt uXGYxXGZzMjJcbGFuZzEwMz NcaGljaFxmMVxkYmNoXGYxX AtzY0cuPdTqU1YbJOQzBsZz bLjtUWztLFc1KnxxcPBmufn mMVxmczIyXGxhbmcxMDMzXG zbP6paNoTdIHOftAevVKbft 2NoXGYxXGNmMlxmczIyIHMg FPOwyOXiyJTTAB66IFIjACQ nsSuxlZ3etFOLCUPmaaX2w5 S6UTmfTQHtPVl6LYzizcHcB ENqzL9xXKNkVK2aTJc9lyXc QBDnd1FaHO9gZAVbwNUqIRO 1NNNfz4InI5Fex8BlGSEzBB Ebsu7fwtVbMnHDeVPwJFAxd v15XHWcEC1pM9hmUDTcIAJp khOxyJBds5ZoWHEgqBO3bTJ qSQ2AUsDUw44tGRPzVCBIzr FvFPSxqVnhqYB1kbN7gU2xT iBUaGUgRkRBIGhhcyBkZXRl ew0pwrVwMSCnNDVvx3PqvBA gjHUnhhYcB7Wfv2OfKUTagu 80DArgeBPynk99OW8wZ0Lhq 1LseS6dBOtyXIBtq1TviFDx lRHaWZFfj7UhL9wpnveeNQb euCQjlE4nZQObGNa7XFNel6 XqZYDzg6IaUhCftvRdNFBiE GIjTSZuyO35SRO8mQapwDeh leXgHW0uAWYcfcEuLYBvBXR yeO2zQQedxiAlMNFhtfQ6i6 E1QHrcTMUzrvOsQtzqENS9p jXtlrG0eUEoD0datdwfWCwl BQUiu7ZojO0yuYTBjZRde7F ulMJhlXZLeLYpHC8zpzImEZ 9eRMQ9FFojAAZQCJYoTCizJ QRkXQA9PCqlQzalRAU7rxUr PIZlh6JkNQlgL1adQ25khTh boBa5qKAywUdgnQHacPAlBA RrzsM6f2E6QBIeh2FklatlF HBsYWluXGYyXGZzMjJcbGFu ZzEwMzNcaGljaFxmMlxkYmN oDAAqZZmxN8uaAjSaXyEwFo yyCDP1wK== Gross assessment was [facility] performed at ([facility], code = 2777) Department of Pathology, [address] [place] [address], Technical component [facility] was performed at ([facility], code = 2778) Department of Pathology, [address] [place] [address], Professional component [facility] was performed at ([facility], code = 2779) Department of Pathology, [address] [place] [address], [id number] 11:55:54 Test Item Value Reference Range Interpretation Comments Case Report (test code Surgical Pathology = 104) Report Case: [id number] Authorizing Provider: Frida Hernandez, Collected: 05/22/2022 09:43 AM Ordering Location: [facility] Received: 05/22/2022 12:28 PM SERVICES Pathologist: Galilea Em MD Specimen: Bone, T 12 DIAGNOSIS (test code = [id number] 3220) uZzEwMzNcZnRuYmpcdWMxIH tccnRmMVxlcGljOTYwMlxhb oDbJHDziDDlP9SzrawfJGoo CA6sCK4wbKghqMOstDPwZPA rBxCfb3lyz951jLSga7vvVJ ANycmdgCl8rTqrF41zr4X9V owzH85nbIFcKLY0ZFKkPZRn xCRdMWJuVNW6PXJzvZMyO0q qDHScPT7vjacnJFsvHQujYY SdrJD0QZLgjOOsI7JaXYZmK GdlSAOuvjo3PwNwLh6rdNPz eTcyMFxwYXJkXHBsYWluXGZ uRaSaOQ5nEAVlYjSUN92VID QEY5UXNKjfTNPfNCz5WRccn cUdKD8kQGGwQlGsQPFiwnOk bWGjvT0caTWqkStbp1EvXTn jomMaGnRfPWViqdBiDt1rUL 1wrQqwjrAnZ8fzdQKwrBcwn lFyVTlxd4AkQHlhIUOeJF9h zClyHGXvQT6vVKOnA4ughO7 fekx1TzIpSPVeAzR1DKFouk G7Kwh6NPAeVBvve4lzs3EuU CIaEQq3uAylMsAyDGDmo7rl cyBcZmNoYXJzZXQwIEFyaWF xO808i8qhr6mmraJgvJW5RN GwQUR4OLpduzCtdpX4BRyej ODkCyG3MNbdunRzAVdjhyYu krDxPyf1ADYdK844ECV1hUt zk9njUDP2AEAyDLFaHyWwYf 0nxHFtB938GEMxKYJUHJJfk Ww8EICyoyFwqgZblHLWi319 H383f9zoMOSzvcBpgGeUrys re9kfD600JPCmiHEqmvSwYl RrMSMsaQWscRX9QRWqBL5kc burLSyaTPonTKVkbdL0RBRy nCJzF7KlLMXlDO0khlxdLMC 1PSrwXJPxRVN0HwZcEARuc6 Qduvp9VkYnwr0cad57STA2v 1IfoCwfHXJ8PWD1DkMhDb7d tKXuQBUsHD3xMvHrbLDoEHZ phv26aHxtSHfsJZU2LZNsvz Nhx0Uyz9hfBdJpicWnZ1npU 2JyZHJoZWFkXHBnYnJkcmZv a2Kqk0HdiELpvRh6f9tdRCD tSJMwdEijw1koVTX2OFLahI LaQ1rouL6aQQDcRO1rgihka 0ktGRmnFSvbGOIqlLI4tcA1 PLQrmPAtO3UktB3kWUZjYQm rTVZumup0NyWiNf7pkXVndB cyMFxzYmtwYWdlXHBnbmNvb nRccGduZGVjXHBsYWluXHBs YWluXGYwXGZzMjRccWxcbGF uZzEwMzNcaGljaFxmMVxkYm TvPJPoPWdfV2nqKjSnXvWbA ed0SMHqhUAhPNAjNrr4EIAi pVEpFEMGzAhxaB8vVNJvwNk cmY5vsEU0YGUwurNhhGLVhA 8tJRYMsC4xEbM8NvPyWdH2T Hy9VFSjiJJxdM4= COMMENT (test code = n2bzkKDpXVNrrTN3RoHxWHG 3356) qo4zsg4WikARkxHXhFZvmxE ZmucBjua30qFP4qK08LU6zT PDfFuG9DJIdyhZ2Lpw6KCYo WTAbxMWgD305h7moo0dcagA mbKQ2kUmeKRRvriryEgO9SW yvXLBzapurXMy2KRojRXGwj VC5RLEjnBIhE9CeBMUiWB0v flq1TEY1UQqvCBPkMmS2PAW inVEyUYGieRcoFZcvq256TV W2VhFwLNQxiiUtuEaxbG3sR qPxRABTrtH8oGplBWGiyRgt mcVvd6o3cEEtFIactzSlCSk tb9Wyivqgp4BeKvPal3Gaov N7UTb8DHGsPZNts6XiaZTzc UWqNWJfxfIkNFWuJMAmOG8a dkAkjIiiUGQdNR3lA3YwA6f pw28uDSaaWHOkAUGjr7G0MI 9vEKWbYFDaLG9ftnTfcituk v9lDoCtvAAkKRHri8AxzUXx sVhkCN6pjIErBMTzhJecvNK oQyZfVXCnV7dlatheTJugvW NggXHviDStc0NnGZJapEQed AKbxL1qv9hlpjQnsqZeP8J2 ZWRccGFyXHBhcn0= CPT Code(s) (test code s5xwtYHkBFLppTX0GqLxFGK = 3357) no2hvl1VqgPNlaBMeNLtmlM QfsiLvij54pHL2kC48SU6mC CNpArG5LYMymuI7Lvx9RTFy JPRmrBKtG628c9gnt9orzqB jdZA7sZkoXFKxyhtmShM1BY lrKYQmetyyURs5HNqiVRFoi BD2HLZozHDvS9TuBYDuKQ6q tlo2PFC7BSdtREViHrG1YVR gtCTsDTTupXwcUDxyc528LB T6KfRmLWJoqwDbkMqtsO1jP yWcHOI1ZNTnE8riOZQmIQck ZEE6TObeHGSrUQnvQJO8ZWh wYXJ9 CLINICAL HISTORY (test p2wslDTfXNXvmKP5ApMyNYV code = 3356) yg2bbv6SuyRMqiAMvATugdB BhwuJauw49oAU2zT20FX7yS WHsLbW8GPHzblJ0Hns9MNQr XFRlqTYiW928j6sij7xidiZ bgEU0oWbrCBPxqzdoQtQ6JG gnLCRepmumQFd1WUvdPLOqn LU8AJNmeAXvY4GxNKXvNC1v bvd0FOG0ZBasBIKeCtG2JDR ggDAzCPRkoSjqUQoyl668CT F7WhUaWFNbtaRmfXlsrG2dN lTwZITTTFexQ99xskRggxTz rZlyp97ax8LfSn1srYXaOhI xJB9waeNfn6pfKQY4 GROSS DESCRIPTION u0fbfDFpZMJfrQWOVPPrM2d (test code = ilfUwCSRrbAJtW6SmtaeiHT [id number]) ejAD0zGA2zoPsfmNJdoBDrX H0ZZTQeDvJvPAElsQXvpbFt HgYqDYHeyVKbuFZ1SSQmFJ7 bnohcKGsfKPaxXAYorzR8DI CsuCTfZ7VaIWOdHL7gccfoF PM1IKovhV0bowOXVubuLc2r dHRibHtcZjFcZmNoYXJzZXQ pRWTtdGoxXGXhERx6aI5CCu meRMI5EGLPHvbjCKAgNU1Mv 1tcKSApqYZvTHG2WYmfrBKv OTRuPRAcJQo0YNHpSEfdaGK sLK2znAxtCwugiOsxq2YvrY BcXGlkIDUxMDAyIFxcZGIgI J6EAdQbOYK5IwX6QiFyLOu1 BJw0LT8IPqMiCBDcKBX6MQF 5KsQdKMk6CKyzGR9DIXR3Ui L8HyH6DfC3JRR9CtCgZOJuE iBcXGYgQXJpYWwgXFxmbCBc LM4jxUotpLJinySDQrJPb52 vJqnqHPSgTQsxMFPjZ04wh7 PNm2WjCU6ZBVs9spTkpgkcg C9lGYKyslGgSZccvNTmD1uo ZnMyMCBSZWNlaXZlZCBpbiB or9MeZNosczToQKHzxYYpJM dpdGggdGhlIHBhdGllbnQnc vSlOV3sFZEnX0Lld0Ztk72w bnVtYmVyIGFuZCAiVDEyIGJ jrvUgJOFgKWRwINXqfn45KN jcw9lnLRIiNBEuE5IfQWAuR ROya18sLYMjujChDB4dXAF1 plxpTqV8dNA8bgJuMlrzU02 sbC8dW4JdVCJfn7BouEPqD6 ZfLHJ6CIWpYpOixASujlWhi LPlWHHpkvwjc6brD4dpCGEq JKA4Cb8pfDSwSWCbgtL8x3O nDEscPAVyIRKafAjzb9qlHr BsaWdodCBkZWNhbGNpZmljY KJjv36yZOqcfgOzOZlzbwKb UGlsYXIgQXJndWVsbGVzLCB NSLbrIXYuGKQRO6NpHLbvoP peqD4nKTJzQ64jc0MYd7RiR IVxMSsns0owiAqaz2VroLFi DSqiKQNlrQToKFfrdS9sZlA cw9breXs2EPufiiM6KQIuoj 4JTgpefG5uGtUtk2mznSi1U IGQVoljtaD2j4kldTbjo1Wx yTYaQD5BJj6= MICROSCOPIC a6mjnQRbRBGrdUN0ZqSdVGE DESCRIPTION (test code da8ifp8UoaUIxyYDoEAtxmQ = 3371) MhhdJlhq91eZN2mF82BZ8aJ IRrAjY0JLXicgN3Xqw5EAKx DYVwlSTcR061j5gnk6coujO leFK8oQqzSCTmguqySlW1XN ehRYOohdcwTDy3UTukPVFkr RS0GZVyyTQcS8UmOQSgNR8x zzb4EAE2JLyeCQHuBqA1HIB fkZPaZNNlaHhlLDqhf465RV C8JcLgKUAtyvMbcUapcC2cG vWvSYIItE02ur5vqAU2c3Zd CG9eS9LoJQM6ZRisGKNBRD5 CAVEuk7SnEKUunyYwag8kSA U6hEhpvOVpy5XiDT0mhDDqb DntbEkwdLLbIC78SSS9zR2s LOQlfJujXiBwI7huGQX5b4V xxDVfcyOpyC42lb0paNX9u1 XzAC7gE9FsMHP6BMbfDRydB J0tZ6P8lAFmLOLemzQ7lG8a gpUrKIiwm2ozZKR7 SPECIAL STUDIES (test d2sadZAfCEAvm7ikSMJgtST code = 3377) uZzEwMzNcZnRuYmpcdWMxIH extmObFRiip5EdP6OkWmHjK FxhbnNpXGRlZmxhbmcxMDMz CVR8ysTjRZSwSIkqJZJlGVk mQk2jqYEvrDsfKzCzDHAhi9 ndvjMDukxyqBh4v1zrCPDgK oC3bZKlLRkiU3qtumSusCJm H6YvdSDskWv8y5uyUtRbTfX 3wULhEDeaM0wigqWadGAhFJ ZvFPo4dT59GJQguD6sjOEqA KacuvQhKcM1QSylFHDaCjZ3 NGSlfTSmAAXeF3cuYALdGOc nUXBpOPdumZGgAPQ6rHcxd7 K1pDZuvMYplCnuQyGtYtBcR mHSq3LcQDt7dXptK1YcFWTv AdK8pDZkCEDgXWfnPLIxWAQ yxwE0cUarncNjx69pbIDkXX YwXGZzMjBcbGkwXHJpMCBDb 0BrlUolJPO5sVh9qPkmTffz QHP0Jri2GE9plg78yau5yFz hPLPaergkOaM3RWzcFDJqky dyREc8CRkzNEVrrSM6DCLis EJbM6CwCBZdKJ8kyul8DKU7 LUnzPNQiWbK3PCLrhRTzHMF xvBqyMEilv751DUC6NxEcDL 5oW2Bzc3Q9cF5hnFKdUFBsz CWcCnPxBYGmea0kmPAgMLqi f4GtCDC5qfC7pLQjdXTbQYE jJP31Vwact6FvSdqmx1FtY9 3ykTY5RAdpt7ehUZ4jJmX8a mExMBmwa3cbeZ2nPsN0DHcz JM3sDS1pYXLdbY2tytkkYVD nYnJkcmhlYWRccGdicmRyZm 1juPaiEWI6PHifP6ovcW7fK zB2HHasY4ppbY7nPWv6DSqc yBT4JSHgtK7hHY8becxan7d uYYfcCUjcJYSnpnS0coU5SA XxkBTgB2XmoA3bXSGiII8yi adoc4frSXH9DNdbKYKdMBU2 LmWoRWIxg2Ytkyu7IpCnv7C vmCAeGZzzH88fq209MFAwws WjW0mbmEUpmtewvMSysmupX XaerxD8EUIsMZBrYAedGJGe XGZzMjJcbGFuZzEwMzNcaGl jaFxmMVxkYmNoXGYxXGxvY2 kfNlCfL2ZwNIQdJgJyEExzK OrxuHUbwZLilKY1fS4iOW3s PLVlxNLoP5MmFWWoreNevSB aQDD3bMJaaNFmUY4tNCsfoF Cgk1frs7NpS0uefGlkzWD2D V8sBOKqOZSqTLqry7QuwH1c LlxwbGFpblxmMVxmczIyXGx tqjxaLUVkPWrtJ5jbLaUvWL XswDnaQIhnx4WvYMEmNDXiC mmblvSeQOn2kmHrXNDiembj SMEkdJgqhO8uNhTdBjToMsj lAU1oDIOmM7lmeSIfOKRnLE EnY6mhAsTpoC6yjIgrOVkvK qNfNnTjDuRHi279kd2rEJUd hDLlpwJJbFGnqW1gMOyuYQn sSCglkCYaCKkcm7ppLGJml8 c8sWDkQCUamsNei3woLLadh dTzMQRitWEbgVJoQWZsu40z YLmctEinwZurJASoj1HfcPo gq4GnFmZgIPotv1NzR10hcH JvbCBzbGlkZXMgcnVuIGFsb 05mb2yjYASyJxE1lXBwvKG7 aGNczMQsl9FpeBzxPMUrt6u rSRAdkc3zydbowKAom5IzbC 5pbmcuIEludGVybmFsIHBvc 5h1sETkCBNsUTKvKLlxtHq5 FHJxb078og5zqjI1bZIxVYM 2YWlsYWJsZSBhcmUgZXZhbH VhdGVkXHBsYWluXGYxXGZzM jJcbGFuZzEwMzNcaGljaFxm EJyzVcWbZWGmQEjdJ8vjYeW xX1HgQAJzFsZrzDUxM7ytjT FyXHBsYWluXGYxXGZzMjJcb GFuZzEwMzNcaGljaFxmMVxk WvFqAGCdWZtzH9vyDuYtS8W yXGZzMjIgIFxwbGFpblxmMV xmczIyXGxhbmcxMDMzXGhpY 7cxHsUoNZEmyYbjSYeyo1Pm MPJbNRJxNmpbchFcGQm5llN oXHBhclxwbGFpblxmMVxmcz VmCHzmbdzjHFVpMKugW5feU jExWEIxwHeeNIqkf2BgBLBz NVPgTasdnaTvYSwsmHNcx7z cv5WgT4zrlUalaTO3KHHsF0 aryEGbtUQ0VAL0vX5vJClut pRoGDOcl1HkVBMyJXQqEbG4 zL7kSVL1JnUNjRtgSVNsWHm uXGYxXGZzMjJcbGFuZzEwMz NcaGljaFxmMVxkYmNoXGYxX PmuJ7ilJrOtH9YoYYRwXhXs cRwiGRklCFo8IegzhVCiump mMVxmczIyXGxhbmcxMDMzXG uiU3puVwOwCZMqsVldWOeyk 2NoXGYxXGNmMlxmczIyIHMg VMVavXVkzXGGOT08WWCwUGU tkKqbjI1vgEKAZQIruwB6z3 G1YSyqPSOiNOl4LLeiocOrB LTjtM7dTBDwCX8nBXk7rhZn PVEfy9PmDQ0eLIWogUKlQOF 0NQUdu4ApJ8Brb9EsGJWdYC Kilz8rswDoIiSWaBGrQDLpf n44TDHbEY9sS2skNISbYOPd kxVzyJBfm9PlRXIbcJP0dHT yXT9KFlQLw40dUANwNQKMqx LoSKDelNsnlDN5rpE9jH8lF iBUaGUgRkRBIGhhcyBkZXRl hj9uaoKePZMxTZGfu6TpbAE asPQqetJqV7Ems9LhFCIirj 07RNzrfPEbrq89IO0nV3Ybu 2HzgT0uQGgyNNEpa1HyyKHb fIAzSHDpc3AtG7icztoiARk pwAOdfM5lFKLaUBl1FFWpy0 ErYJAgt8LpHnWuwkRfRXQzT ACzFYXkaC53YIP5wLmgzItz kjAdXA9aDBYptxZtGYMjRVT fhL5hBNorhsBiOOVojpN9p1 N1FJzyNAHcqsFyDyheZWZ8d eGnfmJ2fSMdJ5yiqnfnJSrr VPFmw2QhyY1wyYPXbANfn4W eqODqnXYWgSTjVE7krmQqIB 2qITC3KFzvGOLJLWOsMLxwD PBgCRA3KMhpAaorIBH4qzNe WALqz1OlXQjkV9obA32krLx haWu7hKEsvMxjxJIndCKsNA UoxwI6h5O2IGLvv6VceqdbG HBsYWluXGYyXGZzMjJcbGFu ZzEwMzNcaGljaFxmMlxkYmN eFNToQCjpK9mrSrUpTdBqGl bpQYU6sB== Gross assessment was [facility] performed at ([facility], code = 2777) Department of Pathology, [address] [place] [id number], Technical component [facility] was performed at ([facility], code = 2778) Department of Pathology, [address] [place] [id number], Professional component [facility] was performed at ([facility], code = 2779) Department of Pathology, [address] [place] [id number], [facility] [id number] 11:55:54 Test Item Value Reference Range Interpretation Comments Case Report (test code Surgical Pathology = 104) Report Case: [id number] Authorizing Provider: Frida Hernandez, Collected: 05/22/2022 09:43 AM Ordering Location: [facility] Received: 05/22/2022 12:28 PM SERVICES Pathologist: Galilea Em MD Specimen: Bone, T 12 DIAGNOSIS (test code = [id number] 3220) uZzEwMzNcZnRuYmpcdWMxIH tccnRmMVxlcGljOTYwMlxhb zXhRPOtgZUeB7OzipxbWFxb EF2oKC0hdPzmvGEbkEWeQPK lGsHfq8ppp413nUFsk8riUQ AJwwglkFt8xUorV14ox2Q7M vbnO71jgCOpPMZ2KTXoCYKh iVMkPMByWLF4WJThrNCsF6j sNQCrHE0gwvzhGTwiODzqRQ MgyYU0MZUpdOZlK3XiCCGuK DyzGMHhybv7MuNcTn8jdYYy eTcyMFxwYXJkXHBsYWluXGZ yKsWjIJ9lVWTvPyXIS27BJP FCN3RYITaxRMYlBBu1MCcnk dQtGE6hXWXzAvQpQKIusaBe tSDcmO4uwMPtoXpel6BnRUe awgXdLqLuHMSpkhOfFa6gHD 2kzFozhdQzV1asiPXymTgzd rImADgaq8AlKVafUEGfLS1b xMbtDIZoTI7uARBzC1yfeA6 axya6WzMjSDPsQmK8SKHjzh G7Hwn2KXCjGAwrw7bbu8AuG RFkCUg4fDhpYaGzRHGdp3xb cyBcZmNoYXJzZXQwIEFyaWF fD132n4lam1xzqyNygVH3VP ZkUBX6EFnpfeOgzhI5VOiin SKrSvV6RSvexsIdZFgucwUf svQoKvh7IBLyD383FVN0sLq rl6ukLGV2WBBxGTUlMeBfSg 2khSIaM760TUKjSQEXTKQgd So0QVSzvdEdmoIjsQCSd934 R623j6iqMBKjztAiaMaLjfg dx3sbG884WGWpiRScztKrWm CcWJCgiDTwjRU5LWCgTH3jq apaCZlqOGkjNDNanjR4VLKf oRKqI9EeAQJnZD0ttahyCCE 0YKbeGVCgXUS1DpXxFYLvd4 Qtyux1SaWmex7fuk70VMS8y 5FvzPdvWNT6CIG5CwYfFw7y cTMsNNHjBB7xVhLdvBBbFXO hsv05fWhhLGwgIHP3REVjaw Gld9Fmb1npHaBcvaCxP5oiS 2JyZHJoZWFkXHBnYnJkcmZv q7Wai0YokNZzrHc2l6bgJKG cHHAioTfzt8pwVQX7OBKwvL HyQ1bowW0sYXCbNQ6lsmibu 8oyNLjzTItuZJEckSX9smD6 MVPjpSVeD3BmgT9rPSRzJYd fSICrwit9AeKqQs6teFPtjS cyMFxzYmtwYWdlXHBnbmNvb nRccGduZGVjXHBsYWluXHBs YWluXGYwXGZzMjRccWxcbGF uZzEwMzNcaGljaFxmMVxkYm RpDQSeINutG0efAgIqYdDaC pg6FWPdmZXyJYDnHqy5VSAu eWGkYHBPdZcmaI4mZFBvhPn ijS2qzVM5UJNfbjCwvWMEoV 7kKUUQwY4lImC3IiQrSqX4W Rv2GVTixFZuhB3= COMMENT (test code = j1ojxQVcDIBieUG4AdQgOQT 7757) tt9umd8NrxTLraVCfFYncvV WiycPaga92tHP5hK36EI5qD FPdJmQ1QKVbwfL0Xfe1HAQr ZBYwfHLyR040h4owh2xdgqS zyMD8vBshGFXibfxjPiW1WB ewDYWznryuLIq3MCqmPOAdt EB9TPTlcYMeO3CkGVZhBK3f tfq8AEP3TCbxXZYdJkD2UYD awVDfSTBerAugHQmsv918VB Q8DwVqLKHkwiKsuBhphN0vO fTzAGATsbR2kCmmWIMybWpp tmVxw0p2zDLsXLrlsyPyYOj gl4Yubvxhd9DkBdVrg5Rajg F7JGt2PFIjIGGbt3AxiNGwm RNjUFXritZnUAPqWRBuKS5p ybIfiLnrLLCxMF6bU1VrO8f dv97mRQstGUJdMALru8M6PZ 0dBWLcDQCtOK3towDotgxrz l0iBqYowBNdOZEmg4JguTCd cQyaFX4viAIvPMRfuXpnrTK uUvLhIMTsU0prmqobBFnkeX QrnVWyeMYhj3VmFZOdfGEmb VNioP1aw5gnodIucyBgW8N6 ZWRccGFyXHBhcn0= CPT Code(s) (test code t2azkIQtXJCdkPN6QpQuZEP = 3357) de7grh3OhtTFlsEZcCHodoP JuvcLdis47rUE0sJ44YD0rY QNdMdU4FRSebaC6Tvr4IBVm OEJpoEZcN068x7jmx3qncmJ vfJY0lYyxWFMasqmfHiR3RG zlVBCddvanYMm0QSxgHQPpy AB5NGDgxVIpV2ViCAWkXV4s uxh1UCE0MSywZUBuXiT6WIH kiFUsLRKurCivSTjuj646XV B8KbCfYVFciwOewRdusE5fR pYwKAI1FRSmY9hrKRLsRJmv MDZ4PAjkXCDcJEdsLEC4GIb wYXJ9 CLINICAL HISTORY (test a4vegKGbIORjbYV4KkWmRYT code = 3356) tb7ttn1JqvTAfaMVaELdweN VdgyHzwl66hPO5iE34HS2mH MVdVwA3DZDddtF8Kqc1CMRi ESLneBVhJ418q0rgh5pnrsJ gdGK1oEgnTOKiclkeEeR3UC jlUQTnmupzGIs9LRwbHLXby FZ6LOVslMLqQ5AeZXNtFG9c laq7YWE9VXnjBDBzWtN2IIE znPOxJHTimDovTMgdg900JX N3QuOrIUVrnrUugFvfvB0tU lIbMSKBOJegV32jkkXaqyRv wEpsg97yp7QfWg8agZGqXlA pEK4iqbNvh6cqPHW7 GROSS DESCRIPTION e3pqsPPyMIUcfYSJCTIgY8t (test code = dpnRrSXBhyIGwY4LklkllYS [id number]) diZC9tXG8ovBnuzHSdhFEwU C3XOGMdNaHmMIGmgWQveaEj KtMhHEIllNEqfEW2OWEvSO6 faekuYWtbEHpzKRTzpdU6VP AtgHXkO5DcRIJjDS3hahreH FO4EJbizD3kqmTTYylsXt7u dHRibHtcZjFcZmNoYXJzZXQ aSOOdjKsgJRReFWw1tE6SBe cnODJ5IKAUQvrhLHQiDD5Af 7lnZBVykGXoSAE6BNcrtYOe CWEcUTRhIBo4OKPbUOcfyVC qVL8kwFbzIoyyoPqyu0PwvS BcXGlkIDUxMDAyIFxcZGIgI L6DPkDqWQG2KjT1GqMpESl3 QLc7HD9ZWsMxEKYzCAO1NKT 7SlEuTUc0CQzbEZ2GEQH3Ey G9XcN6UmE9MHO6MgFxDWMoI iBcXGYgQXJpYWwgXFxmbCBc NS9ecVescTJwreWBAxXTl83 mXcoiOQXtSPukCPHiT44sv2 ENk0TtMO7PFPk4rtJhfqcyh E5kMURgatVxAZchaHJuA4dc ZnMyMCBSZWNlaXZlZCBpbiB lo3KgLNkmwhDjJZUlaPTtOI dpdGggdGhlIHBhdGllbnQnc qQuZG5mLOQaE9Ydq2Tnj34t bnVtYmVyIGFuZCAiVDEyIGJ fdoZiPVKeVBWnGCObge89YP lkp3bhYPRpURGpO7WdZAHwJ JPhh33dFJDfxiFuWR5pUVB1 kezcQtD3lNH5eiTxJxxaW03 uqI8jH8XiHOCqa5RjeHMoF7 CcOAF4BNMhDjDqfPGlltSyp IQiFBLcsaipb8reN9aaVYJu SRY3Xa3blOMeWDOarfN7i7K yQDqmHXLfFIHefHuuf1gmXc BsaWdodCBkZWNhbGNpZmljY UHtl33ePErbjhPcFEiqwnJl UGlsYXIgQXJndWVsbGVzLCB JBKqqXUKiBFJJA7XjCPtwfU blpZ3oCQOqF29yq4HGc1GqO PZfBSgje7jnxMzay2NibDXb TXrcOGChzUHdKKkcqU0eGjC lt5oabIx5VReymiE0KHTflt 2XBsrevU9aYzFlo2wkfYh8I AJYZmlqekL1a7cdpEcel5Wq iZSrSX4GCj1= MICROSCOPIC w0gzpFTmBKFqqOG5RjAeORV DESCRIPTION (test code xp3zkq0TftDIsjRUbTGzjuK = 3371) PslcKfly74yQA1nS23IQ2sY ESlHxG7PFTvhkD7Glv5YGEr JZHlqUQzG805c4imv1wjirF hvGS6aCpgKRTuhfyaZuM9EE drFLLhsknsKWs6TMbpTCWlp QU1FHOdpGDxN5ZwDQUxOB5d cvo8TPD8NSbuQNAuOyX9RBK qbUJnHXZhtGapQSgkd539ZD D6NvJwQTTzuoSifXhofG3sQ cNiTCYCyE72xs0leBN7u3Fk SU6vJ6OmGUD8BNhiMFSZNK9 MBVYct6BnDXRokuFkcw0xUN U9cUfuxLBml5AiQE6xmQFtp VrakFdmpHVfOA44ZGU6mI2b CORjaZcsIaYzZ1dzVKI4i2I fyZLkmhJwtZ01ik9kfXT3w2 CvWS5kG4MxKZF0XAjvAKmwP N8rK5O5dMBcKOSpmdF3eF1r gzEqRKxdn1emTYJ8 SPECIAL STUDIES (test w4xmvQDeSHNbw0mzMUQtvLZ code = 3372) uZzEwMzNcZnRuYmpcdWMxIH junkWwJMlqq7GuA7HpRnJuE FxhbnNpXGRlZmxhbmcxMDMz ADG8peRzCXUsRGfjHJKlHTa iRd6qqZBkcSguLoZqQSDga6 bbtwYNjulvgWr0y5wdWXOdQ rC8mAAnQYcsA7eozfVvyDXp S5CjsJSkbYt2p9zbHcJuEvS 1mAYtBTwoM2tcgwZqbCKaVM VnAPr2oR24FQChyT6hdGIxV ObkizEwLqP9PNbwXBFxNtK2 HUGxgPInZUJlB9nkBXIwETu yBGNqNUzktQMrUUO0jXjlg7 I7mCJlqOYdxNhgXaPqVvLfB nBAy0ZmRXl2jMeoV9SlIUGl QaS5jSVhXTZaHTzjNEUkILM meaZ9aComhyNvy18ydTTbBT YwXGZzMjBcbGkwXHJpMCBDb 6SjiEdpBSW6hUn4yVbqVsfp ZKC3Qpf9GS2jpc79ici3fTe tFROnouiiWzC3HGzqQJAlmg myZKl4WVcqRGRkrFR4QWBqe NUcX9JhOHCcEJ6dqic4FDQ5 JCgqICElQkP0FCTcdNOzIHD eaQhfZSqkl068ZBN2VgPxSH 8rJ9Jtf9C2yE6pnKPaSWHnf OUwGiQtPIDwwo2dnCWaEQro m5PsLMZ0vjB1tFBydMNuJOG cGM18Vvbel4LsYmsco1WrI1 8uhGK1GXrxh0bbBV3oRaQ5q cWrTEimj9bfgP1lIqD0UWao UZ2lQO1vLPBgjJ3elvhaDYQ nYnJkcmhlYWRccGdicmRyZm 2iiDlyZXW1CGwrK1indH6nZ qH7GQmgI0rfgW5gBIn5PKef bSO0GJTqyB2xJU7mggoyh1c sMVefHNoaDNOwvpV4mrT7GQ HpxUZwQ9NavY2pYQMgHE9aj ezaj4omCWM1XBucBADyYQN9 RsZzHIRrz2Nhdtq9RfMsr8W idUAyHWraA78qm198FIWrjh LoE6babRBupaxbuFXvoufjO JktubL3EKAwZQBmHCxfVZAf XGZzMjJcbGFuZzEwMzNcaGl jaFxmMVxkYmNoXGYxXGxvY2 jiCmKmZ4BsWTIqHxHnBJonA SsccBVwzINdzHM1hQ7qUY2j PBAjxXKsO1BtQPNaioIgfPH hGHD7eGIzfXBxQE6rMKmyfV Nzn3lyz9ArN1vqcQxfrLW9J G6bXUKvLNZoFUker1GoqI1l LlxwbGFpblxmMVxmczIyXGx eyzobYMRyDJwoC4kmHhBaER EydPzmIQnol6TtJYTfOPRdP hkbqbCjLZi5stHlAMIkrsbc CJQvtDzdbQ3kNwFiLhZeVtd rIA9vQRKaP1otrKZuWDIoCG OaS8pfDkLcnP4uuTorEYroF wLtQlFhPsRXp725ny6gVAZr kDDzwlJXiKEphK2eFQxuBXz dHAehbTYwXIpuk6beIOZmj2 s2mHGwFQPvzcDpr1caVHeix wLwCDJvmZLfkOUmILSga17p RYzgxAazaYqxFYSpw0FgrGy nu9UoGsVlHVqkv4DdQ74irI JvbCBzbGlkZXMgcnVuIGFsb 49rb3upBYTqWtJ7kDYluUW6 yNHceJTgq9XfiMbhMDTvp9o dQGFsjg7mvpbgnZJqt2YukX 5pbmcuIEludGVybmFsIHBvc 8t1qHUtCSKqBGWyNCbzbIk0 OSTok617ti8lgbU9qSHzPIG 2YWlsYWJsZSBhcmUgZXZhbH VhdGVkXHBsYWluXGYxXGZzM jJcbGFuZzEwMzNcaGljaFxm HSbpHhUjRGZgLYctG0xsEvJ cI4DtHSMlSbGnfXLeB8uygU FyXHBsYWluXGYxXGZzMjJcb GFuZzEwMzNcaGljaFxmMVxk KwVaYCLzBNykT9brUaGyA0P yXGZzMjIgIFxwbGFpblxmMV xmczIyXGxhbmcxMDMzXGhpY 2bfDeLuEEPbfDsxHNzgy4Tn XJOhGVGsNzrbalTqULs5luW oXHBhclxwbGFpblxmMVxmcz SiWGppesrgIXMoZJetP0sqD uHjZCPovKpdWZuzo5QkLVKt SMIlQtsrbfCsNRrncRYhy6f ce3UoL2soqUfbrAJ1XHMbK8 mbfCSxwAU8BRF3vS7iVGokm oBkFFHlo5SeWXKpRRRzTbU0 nJ6zZDD3RfPAbLmzBDGrLWl uXGYxXGZzMjJcbGFuZzEwMz NcaGljaFxmMVxkYmNoXGYxX UggZ8tjQmCjT7BnDJRrWzAu yEysUUzdEHg0OwqpaLTdurr mMVxmczIyXGxhbmcxMDMzXG tmM1oeAuJtBHIroShpKCdzk 2NoXGYxXGNmMlxmczIyIHMg WCCitZAloFUASD76AXDgCQX qwQvwqZ6stIXICCAfhwV5p2 Y8ROmtZLOxBSi2MWzfrwYfF OJoiH3lGDHyLQ1jLKs9siHq ESFmi8HfPN1dORUccRKmKHV 5DGCed2CkL7Vqv8VbGVNoJC Bujd8kxrCaHfEEaRKmEFZlw w60SVGwZC2dD7jwREZdEEFg poCguQCvs9OvPHIvhKD8wCB zZU1VFrJQa83wANKnRNVIyz DkNISvuPxsiTP9zzR1eX4zZ iBUaGUgRkRBIGhhcyBkZXRl uy5isbKgCARqNTPik1UhsPL eqHYtgzJfJ4Ahq5KrVXIauf 08TCiubVJokq90XB0bL2Rdl 9OcxF9pZNgtLTRjs1JxiZGs eXGkHPHfh4VxE8nzqwfmRCf fwIMgmP8uBRTpZKk0PPThj7 SiEJZmk4AdMlSvjbHiHDYjE OXaFHYcjW18NDP7wLgoeHau ezLeSC9hZVTjuiFjCTMkNUL duJ3xINqfzqTfJKOgxcI9t1 I1ZNywKXVeobWzXyoxNIS6v gEhlyQ4zSRbD9iikoboMVjc OIWwy9ZnfA5oxDTHjVObz5N hnWUffFJGtVEiWX0hmkDoNC 9fLNU6RUxgJKKTDLNcXLrsF RUoZGO6IInfPmkgOKP4lxVm GGCcf8TiBZjzR8dzJ13tiMu uzHs4qMEfcXdiuPHtwSJvOG ByzmB9j2I8WAVih8BslnwwW HBsYWluXGYyXGZzMjJcbGFu ZzEwMzNcaGljaFxmMlxkYmN rOPVtVLknA8luSmHlMwNqBh ciONI7sK== Gross assessment was [facility] performed at ([facility], code = 2777) Department of Pathology, [address] [place] [id number], Technical component [facility] was performed at ([facility], code = 2778) Department of Pathology, [address] [place] [address], Professional component [facility] was performed at ([facility], code = 2779) Department of Pathology, [address] [place] [address], [id number] 11:55:54 Test Item Value Reference Range Interpretation Comments Case Report (test code Surgical Pathology = 104) Report Case: [id number] Authorizing Provider: Frida Hernandez, Collected: 05/22/2022 09:43 AM Ordering Location: [facility] Received: 05/22/2022 12:28 PM SERVICES Pathologist: Galilea Em MD Specimen: Bone, T 12 DIAGNOSIS (test code = [id number] 3220) uZzEwMzNcZnRuYmpcdWMxIH tccnRmMVxlcGljOTYwMlxhb jWqFDUxeCVzE7YgjgfyYLjn DV0zKY5zgVxvlZGctIMpPVG cVlSup2map120wJLxu9chHD BQdglrcFb2dLnzM22qc8E4E yygS91gaGYuEBA1RLJpILAw jQOpMYXvZFV8NYWqnSFyU9g kMMQdCR3eclqcDIbpNAniOZ AkeFP2XGIebRJjI9NbYRYbH PvaTBAzxuc2AyNiYm6yyGFl eTcyMFxwYXJkXHBsYWluXGZ bCrZmKT6rVSXbToBNI48WYA NHX2ZLDRawEQAaILg7ZOnih wBmKM3uECLiAtWuAETsdqIe sVHexF7vqEWxiFavw5QyPNf dxwCpAyVeWJRxdcWsZk8wVX 6ymKrnlbVeV8wqfOZfvMyye gFiCIjkp2UdOOilVYWsXF1r zVusIWWzAB5vMEGzT8aabL6 tgmu0VbTnDMQgRxB0KISdur Z4Uxh8GGPiGZagb2mbz5IaT CYnDGz1kUqlNkAlURKpe3ho cyBcZmNoYXJzZXQwIEFyaWF fQ920a5bmk1attnFulPV7ZD NtWXR7RUrzjtUcjfL5VQaei RHlOpV3HPgslzTtWLbphaLu nhSfEgi8MDJvS683XKX8oMj wr6yjLNO2JOKxJUNrCnRpVw 6ctKChQ395RHUsLWIHLJIob Xs8TXBlgzUbydRjaRVVj306 G954z2qaFKHnxwEygIfAekw jf1ixS178JELurLCxwmMzMq ReOJRwoWYjtAQ3OOFdVP9rd mleUFsiIYfdWFJccnN1TRXf xIYqE0OwVUPuXP2dcmnfXJV 7LHmdOWXjWHZ9CnQcOVBwe8 Gsyur4IaCoxf7xnb56SWJ7x 0QacViaLGT6TNV9UbMbTd9x vMPiFXGcLQ6kXoUurYUuNEH ljb29hKpdAVuiIGO5SLJfux Uft6Cah8ejVqZujpTuS9wjY 2JyZHJoZWFkXHBnYnJkcmZv z3Jht7HfvAQonYp1s4pkZUE tGKZkbOzfl5emYAH1NEWrxW XzQ6vtrD8mWQUbAQ7ozizno 3yfROsgETuoREZbuMA3gxE0 EGGxtOIqN0EjmG2xUBShNDc fIISfiqu8BlQfGg8maJVvvH cyMFxzYmtwYWdlXHBnbmNvb nRccGduZGVjXHBsYWluXHBs YWluXGYwXGZzMjRccWxcbGF uZzEwMzNcaGljaFxmMVxkYm DhCLZyGBeoF3tuHgXhQgUxA uh9WTZkjNPzBQYgLvd6HYMq kBUyXRJNrYqyfA2kJLAfvGm gxC3hhUX6IDQzrgRvtUAIeU 4aJHBYeT6qMyI6NsImDnJ3L Kc2KASzmARkjY7= COMMENT (test code = e0opxRUjDQBtuEJ0IdCeTUJ 3358) vv2ygr2DztXTtsEOiUEchwA AwoqBlqt82yLX0oB72QB9vI ZUeCwA6UYHbeqL8Aku9FOFs WLFywIRhM363z2yzi3jgjpX dwCJ5yZhmOOBkhdxzRiQ7HY foAPTvxhhuIDj1IEfxQGArg ZR9JFEewDQcF5IjRJDaBM3g srv4AFG4CJqnARDuJbE6LBM fmGEnBKLpnLezJUerz152XC D3VrRdFUKnboHstBtewR5hA rMrRYUSscL2hYteIUFsqXzc xkRxc6w4dUBjXNcvzeGjIVz nv2Utquczr3MqTqPbg5Phwm Q1FMr8XOFrKVGng5OrbHAsb ZCrLJGyqyOdKWViUSKpRG7a ugEamVcfDAQgKL0nF6OoF5b vi24gRYzhGYZwPZCoy5V2SY 9cFADnZPMvUZ8xbhOnxzsfn i1oLgUhuJRoMUShy3QyqGTb kXteER0kkYPbXHOnxNnshWZ iPeRmMGKwX1jqneqwDEkzkA CghZSeuKJoj0PgNOJqiIVac TVwtU8bv0pshyCjelZyX2C0 ZWRccGFyXHBhcn0= CPT Code(s) (test code y5kdyQGiTTNgaGY7GbAuDYG = 3357) ki8ugy4YphMWohJSePSwwbW UarxKvae07oBY4hC31LN8iO FEtGbV3GPLjjbR1Qqd0PPVb CQFdmCGoU733s5eio8dfmdM euPM7sYnkMAXyacemYuM3HT xuMKSyjqzkFUc3HZeaGXAfc AS4PBGgtCRgG5OlSLOpSX8p ilf3UYD9HEmlVTOkVyY4JJQ rnPDtREMykFdqRRvmr712LN D2QhVpNHDylqVyrZuivG0uG wIcRLN0EJOzK1bxNWKgHRry SRR3RCmrAAAuNLyuRYP0EHr wYXJ9 CLINICAL HISTORY (test b6onyLPaNPAuaAR9QdUwTWD code = 3356) af2rlp0OprCEekNXiASmseA NympGpid64cRK5oG37OD7xF EMkLiK0ERHksfE9Hex9GMVt MVCgcALvB576p8cfu6kwdkM hmGF0eEccFEGallniJmC9TP znCBPowdblWKe7OAmyQOOce VN7YIUkjDCqQ0JtPAWoWU1u mwt9SJK6HTkoXLMmCpO0INR rgUMqSFXrzDadEPzrd960HM L4JkQgOTTnqwNqtAeaiK4uJ pToNJRVHFaqR45gapTbxlTu vHwmb65lj3IfVv8leSEtMoT uFD8jadDlb0qeZNZ1 GROSS DESCRIPTION n3trcMQhXXJqfURXJNEsS3m (test code = pidWgALFbxKZaK2BdkbvgTQ [id number]) ypLV4oNV7siQwcdHDmyDEyK N9LEGVuVeCmADCxpVRolpDb CtJxDGWzyCOydIH4AXVbDI2 oshnbJRmfTFwzZTPvcaN1XC BbdLNrB9YdRCRxRM7beqgyX BC7RLtmlQ6wceIWPrdrUm1p dHRibHtcZjFcZmNoYXJzZXQ kVMEvsDnuMDXjUUe1tX2LZc jaREH7ZRRCRyndIHPgQB0Mg 3rsSHNquUIkSJP5DQznoNYg QPQeHRRaOZe2QVOyXGlhoSJ bEX6loHnfTrmeiPffs7PauA BcXGlkIDUxMDAyIFxcZGIgI F6JNrSjWRE4EvA9HfMsCMn0 JFm7TM6VKcQzPVFsOII5DQX 0RfYmKLc6IRziWI0VKEL5Rw R1XrL5BxL1NJO9HzKqZIGkZ iBcXGYgQXJpYWwgXFxmbCBc NC7nrDewmXFutkTKZlAYg39 uEwvdTDWeKZkeMEJdP71rz6 FGm6BpAY1QLMd3mfCfshoec A1lTCQeioQcMKvvlJZbQ6td ZnMyMCBSZWNlaXZlZCBpbiB mi6QxZVykivYvJUMzhEOzUY dpdGggdGhlIHBhdGllbnQnc gGhHL8mZPRjX9Mjp0Tge77i bnVtYmVyIGFuZCAiVDEyIGJ czvZbQOSdDOQiYIKryl87OO dbm3qvPMAaFMYfY7ApHGZsV RXmt26eEJYoglPxAU1iOBK9 fkaaKwP1bEQ6diMsIytuX34 snE3aD6MkWCQfk3QijTKoG4 PrNLJ2YPVqSvXbuCWvwiIau UBvRSPjpymsr0rxU5rtEPPu UCM3Jn6lmNJoHJWjfrB1x1J tGQhlJLZxTKYgkQric1atJi BsaWdodCBkZWNhbGNpZmljY POha29eHOieiuJkPKokjoRu UGlsYXIgQXJndWVsbGVzLCB QKCppZZPaMGGZV3RvSScubC mpmQ9eYYRpQ91rn0ZOp4OhY PXhYWwhq1blhRzrm2SwhCNr KYlySNXhbUFjRLbxlO0sTdM zr6bnySs4LHzlggW0FAZcht 3TKxeweC1gQwSsz7svpFk5L ZSNHzhpfdE1y8cejCyly1Hl nTCdEK8QUw0= MICROSCOPIC b0pmvGYxOTUsdQU5AlNeJBC DESCRIPTION (test code rf9fxd6HqqSSndAKzWYqbzF = 3371) JgufCeol19xLR1mM73GG8vZ LOjEuR0GTSrgtM6Qrf4ZTYw JLHupRThS272m5zhm7epkyN wvSW4mNxtYPKiblyoIhO2PK byGUUmuyvdLIc6JCckRPGoq LQ6PHBnmIXuV8AiWTBpCU3b fmu7WYC8DAzuIQGrUzD5ZJM nsPFoEAIiqRgdTMsqx266BP A4PyXqJAAieuUelIgxgC1xP gRxTSTBxC90wu6qtCD0r1Xt AS8rQ8UyYVA6VVtlJCOOKX3 VPTWze5PmLDFmcvMohm5wPC N4tYcjqJJkj2IpAN1tdCUlo OrkeSicaUSaJF49UAF3cZ9i KPYfdVbbIpAbJ5wrZBE5z0L yeJBlyhAikX46lj0chCI3u2 EyQE6uO7RaDYI6RSzmBMjsB C8iO6B3nLQhZXWqzaL3gW8h uhWhDGrol9duFTG6 SPECIAL STUDIES (test x6hswWEeZCMsi6lcSNJmoPC code = 337) uZzEwMzNcZnRuYmpcdWMxIH mlwmVgPHskn5ChQ2YeAoIpT FxhbnNpXGRlZmxhbmcxMDMz RXQ6ttDiOHLcMWqeBRFdZQl kYw6edRZbuRniSjGgGRVnm9 lmkoEKmmxtoQb1p5dmZBSeE pV2wSUnBWevU2pijjMnfDGg E2YwnJBnuMx8q7lkTqUuBfB 8sCZmYXcgQ6bzmaEccOAnYZ EyHFe5rM59JAEsfB5jqVBmG DntnoSaLqA1QYjoHXUjFiU5 TTUgfYDxDJXiG0xiMOXxXRj gSNEtLVvtiNQgUMU5qAlby3 F2fVHnsRBkzUvmSeSjCcOwD rLVu3BzECd3zFcpU9JhXWJi YfI0uXLdHNWcOTpdLLHgYFO javG6xNlsapIft33etRCdPZ YwXGZzMjBcbGkwXHJpMCBDb 6GaoZoeGZZ3lVu7oIraMfah GVN0Yvj3MO7qri80lxd0dLb yTPHozsxaPzQ2TTywDBAzjj lqGJc1MFclOIJqgCU5LGFkn JUuH6IxRQAcPD4dled3KNE7 JRbaTYHxHvP8ULPfoAQqBSU kvXhfSXwun330KXQ6NtCrQB 5eT6Pss1A3mH5ocWXaPVBss ARgNbPfDOJgzn6poBIbDGgf n8MiGAL5cpL1tQBktXSzJHL dBV70Pyyse9WqFsjzx3RvT8 6zcJE4GCvct0wmOF9tXaM9x hHzEXpug8vgyG5zUtG0QOze GC3qKV3qMOEgyX5iewgfDOG nYnJkcmhlYWRccGdicmRyZm 1cfXabAIH9VQfpL6zhwI9mJ dD9BRkkH7hopW2iFJh6VHxo eJS8AWNiyF3nHU3zsiywg0o zOHrfPFlqOATmpwY9npW4WU KehDObA3MiyP5qAJTmTK1df rkqg2zcEHL0HZziUKJjZYU6 AoWpIZUbw0Natbc6ShQcg4Q ibPWmLTnzV75ir031CBLnif VxY0yghTVppzqkmBJsnlmoL NxdafB9OMRqQQEeBNzmKUEc XGZzMjJcbGFuZzEwMzNcaGl jaFxmMVxkYmNoXGYxXGxvY2 fbEmFgE6NwQFKiLrRdQYyeP OlkgZElnWHesUV4yV4wXO3r THPknUGdI3BnJODkwfBuiWB bVVQ9fRVvuPDqMH7zPPopxB Wac8fjw0AzG8pgoMgkpYU1D F9zGZNlFBXnLPaey3ImxV1k LlxwbGFpblxmMVxmczIyXGx qecmpORDhLFjhG7dgOzSkAQ GboAtfROlqu4BkKLNiJQXoX aaympShWVu8zvPdEHCyleiu KIWhnEkgpH4jHeBeNjVcBxp hUT0qZAUbV9avbQFqACBlEX EoL9udGjYsxY1ctTenCZulG uPeKjBxZtBGt259tj5zLMFw kUKkjpEUmIKxiQ6nKFypASh vVKapfMRrZBrrc0unYQHym7 a5bULcSQWdetNgg0rvJGmly yFwREAimPYycPVbSOEjh34k KQubwOtytGvyMGBnk8UjlUx bk0MtCaUeOGjqj0SsL25jlB JvbCBzbGlkZXMgcnVuIGFsb 98oi8geXAJjTnU6xBNibSH2 pNBcyMHxp3CntYxvOCZwj6z zAVGhjb9paqgzbKXsr2TgvB 5pbmcuIEludGVybmFsIHBvc 8s6hBLgKSXyIFQqMSmlkWu0 OOObv608pg8aoyK9iIKaJTC 2YWlsYWJsZSBhcmUgZXZhbH VhdGVkXHBsYWluXGYxXGZzM jJcbGFuZzEwMzNcaGljaFxm GSxwTzDuVCZbMUrpG6nzUoG kR3FoIGRlTaHflETqY7cclT FyXHBsYWluXGYxXGZzMjJcb GFuZzEwMzNcaGljaFxmMVxk VpClCWXcZFoyP3jnGpPcB6R yXGZzMjIgIFxwbGFpblxmMV xmczIyXGxhbmcxMDMzXGhpY 1uhPwNiSEFggMekVNrbv2Kl UCStSHCkJqwilvAmIPf3nbF oXHBhclxwbGFpblxmMVxmcz EvLYcibrmxRACyDXpkY6ggW mUoWRUsgXbwQBdaa3PgXNRb EGSuHvlosmCvLGgicYAmg9s am1BpE8hqnOavgDK9EGTrP7 zzvOPebWO6COT3fT9hSRfhl kKiZAInu2PmVPYfCORtEfS1 tT6aXLW6RoMYmGopBQLfMHz uXGYxXGZzMjJcbGFuZzEwMz NcaGljaFxmMVxkYmNoXGYxX PiqW1yyAlYbE2XrYDDlSwMc oTpbXMclPRa1XguyhQBkuen mMVxmczIyXGxhbmcxMDMzXG biV4jmCyMcKMZkbPcrFOaea 2NoXGYxXGNmMlxmczIyIHMg LLHyzTTjdZEXWS00GFOgBRY fqJjkzE2qyOUUTMFsgbN4t4 O9YVmbBZMcPCt1BBwxefIcQ RAepF5pCLRjDS0eEZq4kmZu BGShw6EkKK3dWDYolMApKRF 3UIWjg6VnF9Xvk6XnCJOnLG Guwp7ithPqRqJIlFThIOPmw p32XRItZX6qX7ipWMYgUYVa rvMpoRJnv0ZyOKIgiTC5zVW zQR7AWxMPe72zSATkTLUCwl OgPVMcxWgrvYM1ryI6bI2zB iBUaGUgRkRBIGhhcyBkZXRl io5ritXdKEViAOWmc6IfiEK xuSLymxGeA2Cra1TnILDhrr 53IEyxuVOkxg31EE7xF3Ssi 8KjdI1aUCaxCXWnh0RmyPLr aLZiKXCyn8IyK8mvwikrKAg nvYBkjN1pYMXzMVe4XZPpd4 CiTPByn6UsQcLftzMoTSXsF UPnZBEywE27VNC8tOvecYwp ilNgAM8jULXzgfMvZOOiEAC rrF8jXKveafXfOONfhaX6q7 K8ZMuaSKErxrPiWwgxRRA4d zEczxB8tNGlN3codcbzIEux GFFaf7KwrU6cmTHTbBJtq4B yoAOhtFEJiFTxVJ3gppZoEG 1xEOQ7JAupTMYSEDEqEYpkA EWsPCD8FMmgJjwiTEW8onIo IFJro0JoPWqzO0dqZ87xbEi huVj7kLNkaWgpaHRbaNUjFA HazwR7b9Z7GAEis7InbtfqG HBsYWluXGYyXGZzMjJcbGFu ZzEwMzNcaGljaFxmMlxkYmN kNGOjVZiuE3doBjGuAaYhLg cdTDP0nF== Gross assessment was [facility] performed at ([facility], code = 2777) Department of Pathology, [address] [place] [address], Technical component [facility] was performed at ([facility], code = 2778) Department of Pathology, [address] [place] [address], Professional component [facility] was performed at ([facility], code = 2779) Department of Pathology, [address] [place] [address], [facility] [id number] 11:55:54 Test Item Value Reference Range Interpretation Comments Case Report (test code Surgical Pathology = 104) Report Case: [id number] Authorizing Provider: Frdia Hernandez, Collected: 05/22/2022 09:43 AM Ordering Location: [facility] Received: 05/22/2022 12:28 PM SERVICES Pathologist: Galilea Em MD Specimen: Bone, T 12 DIAGNOSIS (test code = [id number] 3220) uZzEwMzNcZnRuYmpcdWMxIH tccnRmMVxlcGljOTYwMlxhb rNqZXPltJQbI4YkbmplDIdp KW2qND3bmFdhvKNqfXJaVWD aZbVwh6goc661cGRlm4diSS BOtjdasRy8gYgkB68zm8P9D rjyS08mfYWdIBS4OXCwWSDv wBXiROCwBRK7GARybBBxR7x vHHKpDO5qrmvhBOneAFcgEN KgeSR3JWTraUDnC0DkPMQiK RftNFNpvoa6NaNhHb2gqIZh eTcyMFxwYXJkXHBsYWluXGZ sJoWbYE6yXKMxJpYMV26ZXV AOB6CCJBxtZEUkJPt8OFxpy eRmUO2pEZWsXrWmRRIezuNd vOJfeL8zySQeaTgxm8PeIBa wmeJfVrQsCXDysoNdRx7gVZ 4iiRxgsdQfF2pihCMyzTozt oTpGTrow9AeFXkwIBIkHJ8c bNvsFNQsFU7uOAUhD3izwG0 xxsz0LpNyUDRiAnM1GJEjqy O0Wxz9GSVsILqxo2iaf2HsD WUgSHw9xAhoWeChJJCku4iq cyBcZmNoYXJzZXQwIEFyaWF gL726j3rlp0mzxnHctRL1QO AjALS2STrbdvPzlyQ5BNcif TNrPkR0ZOrstuBsYEdnpnVx ybViObu8AOZzU718KHL0rWe gq3igSWC2APIrVWHiUxOsFi 6beXCsX008CPFeACYFRWWxg Dg5DGLpaeKhsfFhrLBEg233 W731y4dyGBItvcFodHsEbzx an6ixW574OVTrmFThkmYxZk ZlANYusLFjlID5CPQoVR8dv dkfAYyyLUtoCWXbkiL3WTTa wQLzA7HyMYVfGB5nlhbxAEF 1VHdoHBHjNFE2AsVuGTQdg7 Iecwl0NyJnne7hgc77INM6j 3TbzLolGDM3SFR0JcQvUc8f xUAgFOHiIJ7qQcDppSSsLYZ xjc15oDmuTGhhUGK8VVTkzh Bdn6Sly9cgGzNkmrGjF5geE 2JyZHJoZWFkXHBnYnJkcmZv n6Pdk0GbcKKtwDc0n6quXHC hDJTofFyvq0wbYOB3VWEyhE ClE2fdzJ7tHHCjQR8xszxgm 2tiJIgmDCzvLHIxtNY4ngQ8 MWFrgNWjC6GhwJ5rOKWbPSx uSARckuq4SiBlCi9knKSdcS cyMFxzYmtwYWdlXHBnbmNvb nRccGduZGVjXHBsYWluXHBs YWluXGYwXGZzMjRccWxcbGF uZzEwMzNcaGljaFxmMVxkYm QpDUIlANsiA1ykDfRfBnUhX wz9FOAaeZFlHFSgPcc3STGo yAPxMPRStEeyjD1oHFCieWd jzT0yaUF1ZKKndsFyuFYSiC 6mZQJHrY6aPlR8PqNwIqE5M Ou8HIKgsXEpoR2= COMMENT (test code = p1wzrXSbFTAqfWH5AcCsEAC 3358) tv9drq0BujEEpqDAoZNgrrB PuqjGirs91tSK9uK15QE0lQ UOqUoG9BORtheY5Yap7SPDb RVTwhXDzD966z5jbo9qejrX meXI4kDwdGBCmpijuVbY8SV njMARraiedZUk6GGnuZAMqb SG1HLAhsAWoD7RpYEXvPL7e vql9IGJ5FIzmHTRgLlF6LXZ lvFYmEANceXwjLScjs872SS O8YaGrAERhbrEriKggxG9dZ eLkWBDTjeG0uRjgDRFjfQup sdYym6q1kPOpZOguwuPaNYj nw7Djdnbnh1EaNzGzx4Uhrk X5KQu3TLTrBTTnb4SysHXzx KXlMGWfneIlEJOdACYgZY8c auOqeHaxVIMdOP3yK3KzE4n im92wBAzzJWLcQWVsg2U0JX 2wMMSjATFqQT1flbLvpgqqf w7qHhYtpHCvQPKyi3NdqRRs oUakOR0szFGeKFFdhXkoiIA hHuMeMCOxI3idqtouKUjqaD XweVBpsLXoz2SbXLWoqNFjx SEglM8ky9hcacNyfjGiI5V5 ZWRccGFyXHBhcn0= CPT Code(s) (test code z9uksOZdJGKwzQO8NnKvLFF = 3357) ec4wuh7CpwAVgzKGpVBbsaG LbenBhbu47gXH2kM85XO5mK KVoJtF7SJNftxB4Jfm0MOEd SVVxrGQsU206i7zzz3ynbyD xtEE9cAobNDOucadbFqY2QG efSOZovgelBAa3SVkyLPMwn OA3HHZjtUTpH3IdRKUpNL7n hue5RYF6UZjfRZYuXrJ9VBH wvXIvRUHyoJbzPFjod254YF V7MsVcHHZrxgWipUqjuC2wV rVuAJK1PWTnU4ipAQWbPRdh IRX6JMedXABxGGqaDSZ1HBx wYXJ9 CLINICAL HISTORY (test d0wfpQWpYCDqcHX7GrSeZUS code = 3356) kn6ghb3ZeqIXzuQVeVGgsxZ JmrkUges12dXV4yE69MR6vY AXlKzP6CXEdzmJ3Dof5UTSc SEOuiISzE685v2yws1xawvD fkGN0wZpiLLKezbauFqW3VJ xeVNNbtejlCIe7VEdpIXGwn JI9ZRGqqKGbM2NaJRKaRF5q fzu6NVY1QEibWHZzUqM5LJC dwYWpDUDplPqiOQmwp348IP V5HyWaKJZxxuIcfSnntZ0oG fJiTBBMCKltT82yaaPyaiTx hLvjp59eu4FfZp5jbHGpMkG dXA1kwsScg7miDOX6 GROSS DESCRIPTION g9irlTCjMAVncELJHCBzM5e (test code = fieLaUXNlqDCaU4LwqvlcDA [id number]) mcHB4cGO3qiIvwkWXgyIGvC K1SHVVpNjBaPRZwwPKfgyQs GgHyVSKruXPhaCR5MXNeZE9 ftetaQMhnHMysMJXfqsY4TS YdfLCkF1OnPSXaBP5eatpzM OE8HIynkO5wkrOVFcxsPy6i dHRibHtcZjFcZmNoYXJzZXQ oCIMfrUuyNXQrSDb5oA8STz ryUUL6FJROGriiWRRtDC0Tb 5flSUZgxYUtQZJ8IYaqhYTw GKBrJOSpUVo2CUIcUKekfDJ qQQ8bqWcqGxqlpEfxx3HyeB BcXGlkIDUxMDAyIFxcZGIgI P2IIeUrIBE8RmV2ByNtYMr1 KBp6PM2OWmDqJQAtMSB3NKG 4MsLaLWx0ZOyrSM8WNSL4Zh X4KdL4ChZ7MYT7KaXpZNGxV iBcXGYgQXJpYWwgXFxmbCBc UU5xqWlddEYlhoLLXdZCf18 kFroyLJPxORvkJTGzL40iq1 RXo7WcUW5LZGw4dpGxvcdms H0uMNUjvlYdJKtduXIyF8he ZnMyMCBSZWNlaXZlZCBpbiB kr7SjCOdpjgTpUSQuhZXdYH dpdGggdGhlIHBhdGllbnQnc yGsYV0yUOPbE2Qtx8Zwn74q bnVtYmVyIGFuZCAiVDEyIGJ outPpDEJnQKOlJHIohh54UH yqh4adHHJyVCJyO7MdCMHnE VJyn21qAGGygiYzND2zHNY2 rjktLtJ0sQN4obYkHcrfL41 yjO8bI1ClDVKlz3VshIKyQ4 UtYEH9BBDnChIikXKqhvIhk BSfVYNtcerqh9vlK3xaNQFi BGV9Eq9uyWUfRLPervX3t7Y bOItfNVTjLJRefJmbm8rjNr BsaWdodCBkZWNhbGNpZmljY YWin50tKFatxgZnGRzskzXp UGlsYXIgQXJndWVsbGVzLCB GLQifEIUaRZALQ6BtNJzzqS oskN1xUCPnS15xw5EVv6NdS QHgOGqdd9tunHboh7HhsUNg EFgkVSFhfKWgOQhdtS1vQqC mo5fkpYw0AGxydyM0NUVdgh 1UJuoagF1pYhDgi8okhTi5S YXMSdbehkZ8o7hhpMtos8Au eYKzPS3EOu8= MICROSCOPIC n5qzgEOuNIKttED6JaSlSFQ DESCRIPTION (test code ps6cbe7YldNYcyPMnBScytS = 3371) ZataGlht65eIS3kD79RR1oW QIfIlR2NMTbhlR9Qmi2ISZs MEKwxDBpG965x7erc1idehG zgZQ5tAccCHGphflzJvT8SD dyVTIvqgdgYNu1YGguRJRni RC2DHNczMEdA6HqRSCpEG4j obd7MKC6FZoiUQTvZrZ9WWD alBKjGLJrnXrqTSiku435FS A3ZqUhUDSggvGndXpuvW6nA nLqUXKTvW40ff8raME3c8Wq NB5oQ0DpDHJ2GAjmXSHPYW6 VOGYfr3JgBFNmzdDuan2rNN U8zAnfkCQns9AdRD2jhEDou MhdfYzgkTApJE46PGE1cO6g VDUapYnnIeZcU0jkAIY8g1V icICyzpQpzK13xv8nqAM0s6 EpDK0rE0RvQDF6PFqrUTvbC I2oX3J6dHLcIQFygcX5uZ1n dePwKJdtq8iiRDO5 SPECIAL STUDIES (test a1ttbHRuPSLam9jrPGXvzUJ code = 3371) uZzEwMzNcZnRuYmpcdWMxIH ssesFmECeud1DuT5HpUsSgE FxhbnNpXGRlZmxhbmcxMDMz XAU2geXnABKlZIkhRLXeSVf vLk5xiBBciDzaFpDuKMBxo3 sleyWFwrfjqYd4r1mzWVOkO cI2vGLvRUtzL3ziqvQdfATa X9OqoXHfjLu5w8gmDxMuXnE 2zPVrIPenU9fnhbGktEWiIZ PoHTv2kG14AWYaeS3ktJXdY BkcidZmGyD3COmtJIDlMkA7 UZJfcVDpGQEyO2pzOUYeHHi jQVDyLWqxfEVmZNG5tGaqx3 V6hSXygADwwZvzCtBwTiTjH gZAr5UnISw1dBxtB1MqSFKo LgB3eNUhMZMdBFiuFHSlWQI njeK7zQnmcxXyw26ftIGsWD YwXGZzMjBcbGkwXHJpMCBDb 2VihFinKWE2zWx4jQiaQyta NGB6Zte6NM5knf26mjt7kCa xMSZkwvdxLfX4VQgdSGWghq kyONp8BYlvGXQewXP5ICKqx AJfC4YiHJYyZO0jkoj9EHO2 FGykNXSbOvA6WEBclCOzYZO tpKjsZKwvu539EJV9HzSxPF 3fQ5Syz1X6dK5emWJcSECwv SXxKvNpDQLhow7jcYFhWEfi h5IxDIW5ttZ8jSLnlRNqATD sVL09Mkznv8SoNcner1FkE1 7ceWC8VApiv2iqAJ8dJuV6r aTsNOwqv0lhsX7zAnP4DOpy CZ4fBA3zWNKnvO4spfflXYR nYnJkcmhlYWRccGdicmRyZm 1kzBghCNV1SKdpZ6mheI3dP lP6KSmcR1dbrQ6fBWk8ORdu vVQ3NKWdwL0zIY9qrotpr1a zKDroDUlxVUOamsW2rnT7TH MnvOGrJ0CrwP1aXPXlJZ5dy ejno2vgVGY7SAgnORErHGQ8 EwRaAUNeb6Ercyk5XiShz1W cyWLxJFsoD36dn714OLOacr AxF0hptHGxaobrlMLnteswY RsatpK2DGGnBGUqHVemPWCq XGZzMjJcbGFuZzEwMzNcaGl jaFxmMVxkYmNoXGYxXGxvY2 ywKcZhH1ExLLEcPyNfMKusX PtymZHguTZvlUU9iX8pRR6t OSTuiZSiW1KrKGRuvhKkeFR vPMS9hJDgdLZlMK8uKGfbhT Idl6yyu4QvR5gmwVmnfGX7G A9sWPScDTNyDZzkz5LwsM8d LlxwbGFpblxmMVxmczIyXGx vradvNLKbRLsjH1ufShMoGF OggIikTFtwc7BpMGJiPXHtT gdgovKyJMw6olAlCACntjhp UKIewJsogS8bGeToUnWdUcb dPO3rGVDgE7cifNZaKPGpCG MtY3eyIgCrrA9rtSagCQsfN wFwLzVnBvGAx664px6eHWPn gGYqdyTPfYKieK1yYJwnQIf aSBdrwAWhMOfgy1tnEGEbb4 l0xYWoMQIrxgMfw4huVNaom kSzMQKjnVRwyTEuLMUck06q IEzmuYuvyTsxLBVxd4LcyXj ah6TyIwZaRLgzb5WuC88wcD JvbCBzbGlkZXMgcnVuIGFsb 00wi2mxDUKuKrM6yVPruPQ7 lKFxpELfp9YsqJehWYPmb3r xEHRulo5jiyckcKHot4WhgM 5pbmcuIEludGVybmFsIHBvc 0d8tGMvDTUsCTLsUKuvrZf6 LVPqn730sj2xqqI4xOLaOJM 2YWlsYWJsZSBhcmUgZXZhbH VhdGVkXHBsYWluXGYxXGZzM jJcbGFuZzEwMzNcaGljaFxm OLcvMzXxGGEeMLyiW8anAhR qV6HzRDMhMsKwhMAvD7zzpR FyXHBsYWluXGYxXGZzMjJcb GFuZzEwMzNcaGljaFxmMVxk TrTfOQOoBKcrS2iwQpShL5N yXGZzMjIgIFxwbGFpblxmMV xmczIyXGxhbmcxMDMzXGhpY 9moNtFuHLEdwUtpNMcty1Ip UGWeQRSnSfkpwwIcKFv4xlW oXHBhclxwbGFpblxmMVxmcz RfTWqhcpduMAEkIIzsE2wfI qJjSMPqjYqkICvlt9OqLTVl TOMyWbphdgVzWKfcqDTbh1j ox1UkP3ulbMmrwUY5IUJoY7 zuoNQdyIC5VZI9sS0vMYreh hWfIFSap2UbZRKkMQXwGaK9 sQ0kXRJ0PrLZtJztZXHtRVk uXGYxXGZzMjJcbGFuZzEwMz NcaGljaFxmMVxkYmNoXGYxX VrtS7olJqIlH4OaRWOkYqSu cDnqMVzqBBi3XnraaEXnwkl mMVxmczIyXGxhbmcxMDMzXG sqR4yyYaErWUWglQevIKigv 2NoXGYxXGNmMlxmczIyIHMg QYBqoYDakIOBPR43HPWvQMD loAjacN6rtSCEFUEdsiY5i2 Q9QGgwOCXhXCb6YQlkqbTnX IQbcA7vYJIwQR7vFLh1ulXa FFKhg8RlRS4oDATsaUZcULJ 8STYcx7BcY7Sqf8IoEJAlEZ Elac4ibcKdNrIOaARoFNBez u61MLSsGF1uX7uxMFEnRCJa uvXpcRPla2VqBAFggXA7xMN wFP0FGzCIy43kEDGrPHOBip CeIAMqgHjpfAH4onW4zG8zN iBUaGUgRkRBIGhhcyBkZXRl qi3nilVbBYKuLKUjg7WluBO fkVUlowWxW2Auh4NwYQIevx 11SFgozCNwkk80SZ1zA9Vll 5MwlY3zUVreIUAex1JhfXQa hXIcSHOmx4FgS2ltklsyUPh cvGNpgG2dEYZvHCj0ROKot1 YcEQPkc7NfTeFobfPaEPKsN VCgCBMihW11QTR9vRqpiNrn uvQqTO5gXKTczmBjUAOvCYQ dzY1yAPymebJtNCNlckX3s4 G2CLlxKSVvhqDsQaukDVK9p mHosaO8aUNtF1amxkkpXJkf PMWiy2JyoC4ykQOElUHrr0G qwLOzeNASlOJyJF9mcoVfLY 4sAPZ4NDvbRYOSPRArWOyzI TPpRIU5CCpsHrfnLBG4ljWp DTPan0OeCUgbN5hrK25biTp rgGf8mWWvwNeowTPbtMBgDM KnuuT3v8Y8JAToj7DmdyajI HBsYWluXGYyXGZzMjJcbGFu ZzEwMzNcaGljaFxmMlxkYmN xIMQoINbpO4gkQzQgRoJlEq tsPYK0zB== Gross assessment was [facility] performed at ([facility], code = 2777) Department of Pathology, [address] [place] [address], Technical component [facility] was performed at ([facility], code = 2778) Department of Pathology, [address] [place] [address], Professional component [facility] was performed at ([facility], code = 2779) Department of Pathology, [address] [place] [address], [facility] Center[facility] [id number] 11:55:54Surgical Pathology Report Case: [id number] Authorizing Provider: Frida Hernandez, Collected: 05/22/2022 09:43 AM Ordering Location: [facility] Received: 05/22/2022 12:28 PM SERVICES Pathologist: Galilea Em MD Specimen: Bone, T 12 A. T12 BONE BIOPSY-Hyaline and fibro-cartilaginous tissueNegative for malignancy Signing Pathologist Direct Phone Line: [phone] signed by Galilea Em MD on 05/24/2022 at 11:55 Gill this patient with a given history ofof moderately to poorly differentiated pancreatic adenocarcinoma in the body of the pancreas, no features of malignancy identified. If clinically suspicious repeat biopsies [id number] neoplasm of body of pancreasA. Bone.Received in formalin labeled with the patient's name, accession number and "T12 bone" are 3 [place]-yellow, trabeculated bone cores measuring up to 1.9 cm in greatest lengthby 0.2 cm in diameter, which are submitted in toto in A1 following light decalcification.TRINI Salvador HT (ASCP)Immunohistochemical stain AE1/AE3 was performed which does not highlight any tumorcells. Synaptophysin immunohistochemical stain is negative for tumor cellsThe interpretation of thiscase included the use of immunohistochemistry or special stains.Control Slides Examined: In-house known positive controls were evaluated along with the test tissue. These control slides run alongside of the patients sample show appropriate staining. Internal positive and negative controls when available are evaluated Immunohistochemistry technical testing was performed at [facility], Pathology Laboratory where it was developed and its performance characteristics were determined. It has not been cleared or approved by the U.S. Food and Drug Administration. The FDA has determined that such clearance or approval is not necessary. The test is used for clinical purposes. It shouldnot be regarded as investigational or for research. This laboratory is certified under the Clinical Laboratory Improvement Amendments of 1988 (CLIA-88) as qualified to perform high complexity clinical l aboratory testing.[facility], Department of Pathology, [address] [place] [address], [facility], [address] [place] [address], [facility], Department of Pathology, [address] [place] [id number], AWM W/PLT COUNT & AUTO [id number] 11:34:24 Test Item Value Reference Range Interpretation [...] CONCENTRATION Adequate (CELLAVISION)(BEAKER) (test code = 3438) Exhaust And Muffler Repairer ID - Carolina OverholtUser comments: Slide comments:CT, BIOPSY, BONE 2022-05-22 10:53:00APPROVED PER DR. Smith for Exam:->MALIGNANT NEOPLASM OF BODY OF [facility] [place] : 1945 Sex: FFINAL REPORT CT guided core biopsy of lesion in T12 vertebral body History: MALIGNANT NEOPLASM OF BODY OF PANCREAS Modality: CT, CT fluoroscopy Anesthesia: 1% lidocaine local Approach:Posterior percutaneous Consent: The risks, benefits, and alternatives to the procedure were discussed with the patient. The patient expressed understanding and informed written consent was obtained. Time out: A pre-procedure time out was performed in order to confirm the appropriate site of the procedure. Sedation: Moderate sedation was administered, including a total of 1.0 mg of Versed and 75 mcg of fentanyl. Continuous monitoring was performed by the operating [...] usual sterile preparation and application of local an esthesia, a Bonopty needle was advanced into T12 using CT guidance. Two passes were made, yielding two cores Disposition: The patient tolerated the procedure well, without immediate complications. The patient left CT in stable condition. Impression: 1. Technically successful CT guided core biopsy of lesion in T12 vertebral body. Signed: Bita Holt Verified Date/Time: 05/22/2022 10:53:54 Reading Location: [address] Ortho Consult Reading Room PROTHROMBIN [id number] 08:05:01 Test Item Value Reference Range Interpretation Comments PROTIME (BEAKER) 15.9 seconds 11.9-14.2 H (test code = 759) INR (BEAKER) (test 1.30 See_Comment [Automat ed message] code = 370) The system Anonymous You generated this result transmitted ref erence range: <=5.90. The reference range was not used to int erpret this result as normal/abnormal . RECOMMENDED COUMADIN/WARFARIN INR THERAPY RANGESSTANDARD DOSE: 2.0 - 3.0 Includes: PROPHYLAXIS for venous thrombosis, systemic embolization; TREATMENT for venous thrombosis and/or pulmonary embolus.HIGH RISK: Target INR is 2.5-3.5 for patients with mechanical heart valves.Surgical pathology [id number] 20:10:41 Test Item Value Reference Range Interpretation Comments Case number (test code = [id number]) Surgical pathology See link below for report (test code = PDF Lab Report 2255) Result status (test code This is Final Report = [id number]) [id number] [id number] 20:10:41 Test Item Value Reference Range Interpretation Comments Case number (test code = [id number]) Surgical pathology See link below for report (test code = PDF Lab Report 2255) Result status (test code This is Final Report = [id number]) for [address] pathology [id number] 20:10:41 Test Item Value Reference Range Interpretation Comments Case number (test code = [id number]) Surgical pathology See link below for report (test code = PDF Lab Report 2255) Result status (test code This is Final Report = [id number]) for [address] pathology [id number] 20:10:41 Test Item Value Reference Range Interpretation Comments Case number (test code = [id number]) Surgical pathology See link below for report (test code = PDF Lab Report 2255) Result status (test code This is Final Report = [id number]) for [address] pathology [id number] 20:10:41 Test Item Value Reference Range Interpretation Comments Case number (test code = [id number]) Surgical pathology See link below for report (test code = PDF Lab Report 2255) Result status (test code This is Final Report = [id number]) for [address] pathology [id number] 20:10:41 Test Item Value Reference Range Interpretation Comments Case number (test code = [id number]) Surgical pathology See link below for report (test code = PDF Lab Report 2255) Result status (test code This is Final Report = [id number]) for [address] pathology [id number] 20:10:41 Test Item Value Reference Range Interpretation Comments Case number (test code = [id number]) Surgical pathology See link below for report (test code = PDF Lab Report 2255) Result status (test code This is Final Report = [id number]) for [address]
[2022-09-03] MEDS ORDERED: AMIODARONE HCL 150 MG/3 ML INJ IV ONE (23:49)
[2022-09-03] MEDS ORDERED: D5W 100 ML IV ONE (23:50)
[2022-09-03] MEDS ORDERED: AMIODARONE IN DEXTROSE,ISO-OSM 360 MG/200 ML BAG IV ONE (23:58)
[2022-09-04] MEDS ORDERED: PROMETHAZINE INJ 25 MG/ML AMP ONE (00:23)
[2022-09-04 00:28] LABS: Absolute Lymphocytes (CBC) 0.3 K/uL (0.7-4.9); Hematocrit 35.5 % (36.0-45.0); Lymphocytes % 27.7 % (15.3-44.8); MCV 96.8 fL (80-100); MPV 10.7 fL (7.6-11.3); RBC Red Blood Cell Count 3.66 M/uL (3.86-4.86)
[2022-09-04 00:34] LABS: Protime INR 4.31
[2022-09-04 00:37] LABS: Albumin 2.4 g/dL (3.4-5.0); Bilirubin Direct 0.5 mg/dL (0-0.2); Bilirubin Total 1.9 mg/dL (0.2-1.0); Magnesium 1.9 mg/dL (1.6-2.4); Potassium 2.8 mEq/L (3.5-5.1)
[2022-09-04 00:38] LABS: Troponin High Sensitivity 85.1 pg/mL (<58.9)
--- NOTE | 2022-09-04 00:56 | ER ---
Nurse's Notes [facility] Name: Nile Michele Age: 77 yrs Sex: Female : 1945 Arrival Date: 09/03/2022 Time: 22:27 Bed 3 Private MD: Diagnosis: Heart failure, unspecified;Localized edema;Atrial Fibrillation with Rapid Ventricular Rate;Leukopenia;Anemia, unspecified;Pancreatic Cancer Presentation: 09/03 22:43 Chief complaint: Patient states: c/o nausea and vomiting that started today. as6 Coronavirus screen: At this time, the client does not indicate any symptoms associated with coronavirus-19. Ebola Screen: No symptoms or risks identified at this time. Initial Sepsis Screen: Does the patient meet any 2 criteria? No. Patient's initial sepsis screen is negative. Does the patient have a suspected source of infection? No. Patient's initial sepsis screen is negative. Risk Assessment: Do you want to hurt yourself or someone else? Patient reports no desire to harm self or others. Onset of symptoms was September 03, 2022. 22:43 Method Of Arrival: Wheelchair as6 22:43 Acuity: JERMAINE 3 as6 Historical: - Allergies: 22:47 No Known Allergies; as6 - PMHx: 22:47 a fib; Hypertensive disorder; pancreatic CA; as6 22:48 Congestive heart failure; as6 - PSHx: 22:47 None; as6 - Immunization history:: Client reports receiving the 2nd dose of the Covid vaccine, moderna. - Social history:: Smoking status: Patient reports the use of cigarette tobacco products, denies chronic smoking, but will smoke occasionally. Screenin/20 00:40 [facility] ED Fall Risk Assessment (Adult) History of falling in the last 3 months, pf1 including since admission No falls in past 3 months (0 pts) Confusion or Disorientation No (0 pts) Intoxicated or Sedated No (0 pts) Impaired Gait No (0 pts) Mobility Assist Device Used No (0 pt) Altered Elimination No (0 pt) Score/Fall Risk Level 0 - 2 = Low Risk Oriented to surroundings, Maintained a safe environment, Educated pt \T\ family on fall prevention, incl call for assistance when getting out of bed, Assessed \T\ reinforced patient's understanding of fall precautions, Provided non-skid footwear, Hourly rounding (assess needs \T\ fall precautionary measures) done, Used ambulatory aids as needed (educated on \T\ assisted with), Used gait belt as appropriate. Abuse screen: Denies injuries from another. Nutritional screening: No deficits noted. Tuberculosis screening: No symptoms or risk factors identified. Assessment: 09/03 23:10 General: Appears in no apparent distress. comfortable, well groomed, Behavior is calm, pf1 cooperative, appropriate for age, quiet. 23:10 Pain: Denies pain. Neuro: No deficits noted. Level of Consciousness is awake, alert, pf1 obeys commands, Oriented to person, place, time, situation. Cardiovascular: Reports shortness of breath, since for months. Patient stated was admitted here on August 21-. Capillary refill < 3 seconds Patient's skin is warm and dry. Respiratory: Reports shortness of breath on exertion since for several months Airway is patent Trachea midline Respiratory effort is even, unlabored, Respiratory pattern is regular, symmetrical. 23:10 GI: Abdomen is flat, non-distended, Bowel sounds present X 4 quads. Abd is soft and non pf1 tender X 4 quads. Reports nausea, vomiting, since today Patient currently denies abdominal pain. : No deficits noted. No signs and/or symptoms were reported regarding the genitourinary system. EENT: No deficits noted. No signs and/or symptoms were reported regarding the EENT system. Derm: patient has a port a cath to right anterior chest wall. 23:10 Cardiovascular: Reports. Musculoskeletal: Swelling present in right leg and left leg pf1 and right foot and left foot with 4+ pitting edema. 09/04 00:00 Reassessment: Patient appears in no apparent distress at this time. Patient and/or pf1 family updated on plan of care and expected duration. Pain level reassessed. Patient is alert, oriented x 3, equal unlabored respirations, skin warm/dry/pink. Patient states symptoms have improved. 01:00 Reassessment: Patient appears in no apparent distress at this time. No changes from pf1 previously documented assessment. Patient and/or family updated on plan of care and expected duration. Pain level reassessed. Patient is alert, oriented x 3, equal unlabored respirations, skin warm/dry/pink. Patient states symptoms have not improved. Vital Signs: 09/03 22:43 BP 99 / 63; Pulse 72; Resp 18 S; Temp 97.3(O); Pulse Ox 100% on R/A; Weight 74.84 kg as6 (R); Height 5 ft. 5 in. (R); Pain 0/10; 23:30 BP 136 / 89; Pulse 132; Resp 20; Pulse Ox 98% on R/A; Pain 0/10; pf1 09/04 00:00 BP 114 / 71; Pulse 131; Resp 14; Pulse Ox 99% on R/A; Pain 0/10; jb4 00:30 BP 135 / 105; Pulse 128; Resp 17; Pulse Ox 99% on R/A; Pain 0/10; jb4 01:00 BP 120 / 72; Pulse 132; Resp 18; Pulse Ox 98% on R/A; Pain 0/10; jb4 09/03 22:43 Body Mass Index 27.46 (74.84 kg, 165.1 cm) as6 09/03 22:43 Pain Scale: Adult as6 23:30 Pain Scale: Adult pf1 09/04 00:00 Pain Scale: Adult jb4 00:30 Pain Scale: Adult jb4 01:00 Pain Scale: Adult jb4 ED Course: 09/03 22:27 Patient arrived in ED. jj6 22:47 Triage completed. as6 22:49 Charly Kinney DO is Attending Physician. ms3 22:49 Arm band placed on. as6 23:00 Patient has correct armband on for positive identification. Bed in low position. Call pf1 light in reach. Side rails up X2. Adult w/ patient. 23:25 No provider procedures requiring assistance completed. Inserted saline lock: 22 gauge pf1 in left antecubital area, using aseptic technique. Blood collected. 09/04 00:05 Inserted saline lock: 20 gauge in right antecubital area, using aseptic technique. pf1 Blood collected. 00:16 Magnesium Sent. pf1 00:16 CBC with Automated Diff Sent. pf1 00:16 Protime (+INR) Sent. pf1 00:16 Troponin High Sensitivity Sent. pf1 00:16 NT PRO-BNP Sent. pf1 00:16 Basic Metabolic Panel Sent. pf1 00:22 Chest Single View In Process Unspecified. EDMS 00:34 Mercedes may, RN is Primary Nurse. pf1 00:55 Arlette Yuen MD is Hospitalizing Provider. ms3 01:51 Patient admitted, IV remains in place. pf1 Administered Medications: 09/03 23:55 Drug: amiodarone IVPB 150 mg Volume: 100 ml; Route: IVPB; Infused Over: 10 mins; Site: pf1 left antecubital; 09/04 00:00 Follow up: Response: No adverse reaction; Marked relief of symptoms; IV Status: pf1 Completed infusion; IV Intake: 100ml 00:05 Drug: amiodarone IVPB 900 mg, D5W IV 500 ml Route: IVPB; Rate: 1 mg/min; Site: left pf1 antecubital; 01:00 Follow up: Response: No adverse reaction; Marked relief of symptoms pf1 06:12 Follow up: Response: No adverse reaction; IV Status: Completed infusion; IV Intake: as6 200ml 00:20 Drug: Promethazine IVP 12.5 mg Route: IVP; Site: right antecubital; pf1 01:20 Follow up: Response: No adverse reaction; Marked relief of symptoms pf1 01:15 Drug: Magnesium Sulfate IVPB 1 grams Route: IVPB; Infused Over: 1 hrs; Site: right pf1 antecubital; 02:15 Follow up: Response: No adverse reaction; Marked relief of symptoms; IV Status: pf1 Completed infusion; IV Intake: 100ml 01:35 CANCELLED (Other Intervention Used): Potassium PO Effervescent Tablet 50 mEq PO once; la1 dissolve in 4 ounces of water or juice 02:55 Drug: Potassium Chloride IV 20 mEq Route: IV; Rate: calculated rate; Site: right pf1 antecubital; 03:10 Follow up: IV Status: Infusion continued upon admission pf1 03:10 Follow up: Response: No adverse reaction; Marked relief of symptoms pf1 04:53 Drug: Potassium Chloride IV 20 mEq Route: IV; Rate: calculated rate; Site: right as6 antecubital; 06:12 Follow up: Response: No adverse reaction; IV Status: Completed infusion; IV Intake: as6 100ml 09/05 13:23 CANCELLED (Other Intervention Used): Phenylephrine IV 0.5 mcg/kg/min IV at calculated ph rate See Administration Instructions; (Standard concentration 50 mg / 250 mL D5W); Recommended max rate 5 mcg/kg/min; Titrate 0.1 mcg/kg/min as often as every 5 minutes to achieve goal (see titration policy); Goal parameter MAP greater than 65 mmHg. Medication: 09/03 23:00 VIS not applicable for this client. pf1 Intake: 09/04 00:00 IV: 100ml; Total: 100ml. pf1 02:15 IV: 100ml; Total: 200ml. pf1 06:12 IV: 100ml; Total: 300ml. as6 06:12 IV: 200ml; Total: 500ml. as6 Outcome: 00:56 Decision to Hospitalize by Provider. ms3 01:51 Admitted to ER Hold. Please see [facility] for further documentation. pf1 01:51 Condition: stable 01:51 Instructed on the need for admit, Demonstrated understanding of instructions. pf1 09/05 14:00 Patient left the ED. ap3 Signatures: Dispatcher [employer] EDMS Fabiano Garcia RN RN jb4 Kayleen Clifford RN RN ap3 Charly Kinney DO DO ms3 Helena Alamo6 Sudhakar Johnson RN RN as6 Mercedes may RN RN pf1 Levi Alexander-Shani Hernandez RN ph Corrections: (The following items were deleted from the chart) 09/04 00:40 09/03 23:10 Respiratory: Airway is patent Trachea midline Respiratory effort is even, pf1 unlabored, Respiratory pattern is regular, symmetrical, pf1
--- NOTE | 2022-09-04 00:57 | EDPHYS ---
Physician Documentation [facility] Name: Nile Michele Age: 77 yrs Sex: Female : 1945 Arrival Date: 09/03/2022 Time: 22:27 Bed 3 Private MD: ED Physician Charly Kinney HPI: 09/03 23:33 This 77 yrs old Female presents to ER via Wheelchair with complaints of Nausea/Vomiting.ms3 23:33 77-year-old female with past medical history of atrial fibrillation, hypertension, ms3 pancreatic cancer, congestive heart failure presents for increased leg swelling, shortness of breath has been ongoing for 3 weeks. Patient's daughter states patient began vomiting this afternoon. Patient denies pain.. Historical: - Allergies: 22:47 No Known Allergies; as6 - PMHx: 22:47 a fib; Hypertensive disorder; pancreatic CA; as6 22:48 Congestive heart failure; as6 - PSHx: 22:47 None; as6 - Immunization history:: Client reports receiving the 2nd dose of the Covid vaccine, moderna. - Social history:: Smoking status: Patient reports the use of cigarette tobacco products, denies chronic smoking, but will smoke occasionally. ROS: 23:33 Constitutional: Negative for fever, and chills. Neck: Negative for injury, pain, and ms3 swelling, Cardiovascular: Negative for chest pain, and palpitations. Respiratory: Negative for shortness of breath, cough, wheezing, and pleuritic chest pain. 23:33 MS/Extremity: Negative for injury and deformity. 23:33 Respiratory: Positive for dyspnea on exertion, shortness of breath. 23:33 Abdomen/GI: Positive for nausea and vomiting. 23:33 All other systems are negative. Exam: 23:33 Constitutional: This is a well developed, well nourished patient who is awake, alert, ms3 and in no acute distress. Head/Face: Normocephalic, atraumatic. Neck: Trachea midline, no cervical lymphadenopathy. Supple, full range of motion without nuchal rigidity, or vertebral point tenderness. No Meningismus. Chest/axilla: Normal chest wall appearance and motion. Nontender with no deformity. 23:33 Cardiovascular: Rate: tachycardic, Rhythm: regular, Pulses: no pulse deficits are appreciated, Heart sounds: normal. 23:33 Cardiovascular: Edema: 4+ edema to level of left ankle, left foot, left toes, right ankle, right foot and right toes. 23:33 ECG was reviewed by the Attending Physician. Vital Signs: 22:43 BP 99 / 63; Pulse 72; Resp 18 S; Temp 97.3(O); Pulse Ox 100% on R/A; Weight 74.84 kg as6 (R); Height 5 ft. 5 in. (R); Pain 0/10; 23:30 BP 136 / 89; Pulse 132; Resp 20; Pulse Ox 98% on R/A; Pain 0/10; pf1 09/04 00:00 BP 114 / 71; Pulse 131; Resp 14; Pulse Ox 99% on R/A; Pain 0/10; jb4 00:30 BP 135 / 105; Pulse 128; Resp 17; Pulse Ox 99% on R/A; Pain 0/10; jb4 01:00 BP 120 / 72; Pulse 132; Resp 18; Pulse Ox 98% on R/A; Pain 0/10; jb4 09/03 22:43 Body Mass Index 27.46 (74.84 kg, 165.1 cm) as6 09/03 22:43 Pain Scale: Adult as6 23:30 Pain Scale: Adult pf1 09/04 00:00 Pain Scale: Adult jb4 00:30 Pain Scale: Adult jb4 01:00 Pain Scale: Adult jb4 Procedures: 09/05 10:53 Intubation: Ventilated with 100% NRB prior to procedure. O2 saturation prior to cloth pattern maker was 80 %. Intubated orally using # 4 Rusty blade with 7.0 mm ETT. was successful on first attempt. Cricoid pressure applied during procedure. Tube secured with ETT rahman at right side of mouth measured 23 cm at teeth. Placement verified by CXR, CO2 detector with (+) color change, auscultating bilateral breath sounds, O2 saturation after procedure was 92 %. Patient tolerated well. MDM: 09/03 22:58 Patient medically screened. ms3 09/04 01:15 Differential diagnosis: Obstruction vs CHF exacerbation vs A fib RVR. Data reviewed: ms3 vital signs, nurses notes, and as a result, I will admit patient. Consideration of Admission/Observation Patient was admitted/placed on observation. Management of patient was discussed with the following: Hospitalist: Levi Attema, on behalf of Dr Yuen. Dry Room Attendant: Dr Whitlock- recommends amiodarone ggt. I considered the following discharge prescriptions or medication management in the emergency department Medications were administered in the Emergency Department. See MAR. Independent interpretation of the following test(s) in the Emergency Department laboratory monitor: rate is 140 beats/min, Rhythm is atrial fibrillation, with no ectopy, Interpretation: atrial fibrillation, tachycardia. Counseling: I had a detailed discussion with the patient and/or guardian regarding: the historical points, exam findings, and any diagnostic results supporting the discharge/admit diagnosis, lab results, radiology results, the need for further work-up and treatment in the hospital. 09/05 10:54 ED course: Called to room by Dr. Yuen, patient still ER hold, decompensating, and rn requiring intubation, intubated without difficulty in ER room 3.. 09/03 23:44 Order name: Basic Metabolic Panel; Complete Time: 00:54 EDMS 09/03 23:44 Order name: Troponin High Sensitivity; Complete Time: 00:54 EDMS 09/03 23:44 Order name: NT PRO-BNP; Complete Time: 00:54 EDMS 09/03 23:44 Order name: Magnesium; Complete Time: 00:54 EDMS 09/03 23:44 Order name: CBC with Automated Diff; Complete Time: 11:49 EDMS 09/03 23:44 Order name: Protime (+INR); Complete Time: 00:54 EDMS 09/04 00:25 Order name: Liver (Hepatic) Function; Complete Time: 00:54 EDMS 09/04 00:36 Order name: Manual Differential; Complete Time: 11:49 EDMS 09/04 01:32 Order name: SARS RAPID pf1 09/04 01:58 Order name: SARS-COV-2 Antigen Rapid; Complete Time: 03:05 EDMS 09/04 05:30 Order name: Troponin High Sensitivity; Complete Time: 03:05 EDMS 09/04 09:24 Order name: Troponin High Sensitivity; Complete Time: 03:05 EDMS 09/05 03:37 Order name: ABG Arterial Blood Gas; Complete Time: 05:04 EDMS 09/05 04:22 Order name: Lactate w/ 2H reflex if indic.; Complete Time: 05:04 EDMS 09/05 04:31 Order name: CBC with Automated Diff; Complete Time: 05:04 EDMS 09/05 04:33 Order name: Comprehensive Metabolic Panel; Complete Time: 05:04 EDMS 09/05 04:33 Order name: T4 Free; Complete Time: 05:04 EDMS 09/05 04:33 Order name: Thyroid Stimulating Hormone; Complete Time: 05:04 EDMS 09/05 06:54 Order name: Lactate Sepsis 2 HR Follow-up; Complete Time: 11:49 EDMS 09/05 12:42 Order name: Lactate w/ 2H reflex if indic. EDMS 09/05 12:49 Order name: Comprehensive Metabolic Panel EDMS 09/05 12:50 Order name: Phosphorus EDMS 09/05 12:51 Order name: NT PRO-BNP EDMS 09/05 12:51 Order name: Magnesium EDMS 09/05 12:52 Order name: Procalcitonin EDMS 09/04 00:15 Order name: Chest Single View EDMS 09/05 12:03 Order name: RAD EDMS 09/03 22:58 Order name: EKG; Complete Time: 00:39 ms3 09/04 08:34 Order name: Diet Heart Healthy; Complete Time: 08:35 zm 09/03 22:58 Order name: Cardiac monitoring; Complete Time: 23:26 ms3 09/03 22:58 Order name: EKG - Nurse/Tech; Complete Time: 23:14 ms3 09/03 22:58 Order name: IV Saline Lock; Complete Time: 23:26 ms3 09/03 22:58 Order name: Labs collected and sent; Complete Time: 23:38 ms3 09/03 22:58 Order name: O2 Per Protocol; Complete Time: 23:26 ms3 09/03 22:58 Order name: O2 Sat Monitoring; Complete Time: 23:26 ms3 EC/19 23:33 Rate is 143 beats/min. Rhythm is irregularly irregular. Left axis deviation noted. FL ms3 interval is normal. Clinical impression: Atrial Fibrillation and with RVR. Interpreted by me. Reviewed by me. Administered Medications: 23:55 Drug: amiodarone IVPB 150 mg Volume: 100 ml; Route: IVPB; Infused Over: 10 mins; Site: pf1 left antecubital; 09/04 00:00 Follow up: Response: No adverse reaction; Marked relief of symptoms; IV Status: pf1 Completed infusion; IV Intake: 100ml 00:05 Drug: amiodarone IVPB 900 mg, D5W IV 500 ml Route: IVPB; Rate: 1 mg/min; Site: left pf1 antecubital; 01:00 Follow up: Response: No adverse reaction; Marked relief of symptoms pf1 06:12 Follow up: Response: No adverse reaction; IV Status: Completed infusion; IV Intake: as6 200ml 00:20 Drug: Promethazine IVP 12.5 mg Route: IVP; Site: right antecubital; pf1 01:20 Follow up: Response: No adverse reaction; Marked relief of symptoms pf1 01:15 Drug: Magnesium Sulfate IVPB 1 grams Route: IVPB; Infused Over: 1 hrs; Site: right pf1 antecubital; 02:15 Follow up: Response: No adverse reaction; Marked relief of symptoms; IV Status: pf1 Completed infusion; IV Intake: 100ml 01:35 CANCELLED (Other Intervention Used): Potassium PO Effervescent Tablet 50 mEq PO once; la1 dissolve in 4 ounces of water or juice 02:55 Drug: Potassium Chloride IV 20 mEq Route: IV; Rate: calculated rate; Site: right pf1 antecubital; 03:10 Follow up: IV Status: Infusion continued upon admission pf1 03:10 Follow up: Response: No adverse reaction; Marked relief of symptoms pf1 04:53 Drug: Potassium Chloride IV 20 mEq Route: IV; Rate: calculated rate; Site: right as6 antecubital; 06:12 Follow up: Response: No adverse reaction; IV Status: Completed infusion; IV Intake: as6 100ml 09/05 13:23 CANCELLED (Other Intervention Used): Phenylephrine IV 0.5 mcg/kg/min IV at calculated ph rate See Administration Instructions; (Standard concentration 50 mg / 250 mL D5W); Recommended max rate 5 mcg/kg/min; Titrate 0.1 mcg/kg/min as often as every 5 minutes to achieve goal (see titration policy); Goal parameter MAP greater than 65 mmHg. Disposition Summary: 09/04/22 00:56 Hospitalization Ordered Hospitalization Status: Inpatient Admission ms3 Provider: Arlette Yuen ms3 Condition: Stable ms3 Problem: new ms3 Symptoms: are unchanged ms3 Bed/Room Type: Standard ms3 Location: Intensive Care Unit(03/21/23 12:18) iw Room Assignment: 3-(09/05/22 12:18) iw Diagnosis - Heart failure, unspecified ms3 - Localized edema ms3 - Atrial Fibrillation with Rapid Ventricular Rate ms3 - Leukopenia ms3 - Anemia, unspecified ms3 - Pancreatic Cancer ms3 Forms: - Medication Reconciliation Form ms3 - SBAR form ms3 Critical care time excluding procedures: 09/04 01:18 Critical care time: Bedside Care: 30 minutes, Consultation: 10 minutes, Family ms3 Intervention: 5 minutes. Total time: 45 minutes Signatures: Dispatcher [employer] EDMS Michelle Nicolas, RN RN iw Stuart Chou MD MD rn Attema, Lee, SURVEILLANCE SENSOR OPERATOR-C SURVEILLANCE SENSOR OPERATOR-Cla1 Shani Vega, RN RN ph Lexii Ann RN RN cg Charly Kinney DO DO ms3 Sudhakar Johnson RN RN as6 Idalia Cano, PA-C PA-C sb4 Mercedes may, RN RN pf1 Corrections: (The following items were deleted from the chart) 00:15 00:00 Chest Single View ordered. EDID EDMS 00:44 00:38 Chest Single View+RAD.RAD.BRZ ordered. EDMS EDMS 01:00 00:38 BASIC METABOLIC PANEL+C.LAB.BRZ ordered. EDMS EDMS 01:00 00:38 CBC+H.LAB.BRZ ordered. EDMS EDMS 01:00 00:38 PROBNP+C.LAB.BRZ ordered. EDMS EDMS 01:00 00:38 PROTIME (+INR)+COAG.LAB.BRZ ordered. EDMS EDMS 01:00 00:38 Troponin High Sensitivity+C.LAB.BRZ ordered. EDMS EDMS 01:00 00:39 HEPATIC FUNCTION+C.LAB.BRZ ordered. EDMS EDMS 01:01 00:38 MAGNESIUM+C.LAB.BRZ ordered. EDID EDMS 01:35 00:59 Potassium PO Effervescent Tablet 50 mEq PO once; dissolve in 4 ounces of water or la1 juice ordered. ms3 01:51 00:56 Telemetry/MedSurg (Inpatient) ms3 cg 01:51 00:56 ms3 cg 09/05 03:47 09/04 01:51 [facility] ER HOLD cg cg 03/21 03:47 09/04 01:51 ERHOLD- cg cg 09/05 03:52 03:47 Telemetry/MedSurg (Inpatient) cg cg 03:52 03:47 cg cg 05:21 03:52 Intensive Care Unit cg cg 05:21 03:52 3- cg cg 12:18 05:21 [facility] ER HOLD cg iw 12:18 05:21 ERHOLD- cg iw 13:23 12:09 Phenylephrine IV 0.5 mcg/kg/min IV at calculated rate See Administration ph Instructions; (Standard concentration 50 mg / 250 mL D5W); Recommended max rate 5 mcg/kg/min; Titrate 0.1 mcg/kg/min as often as every 5 minutes to achieve goal (see titration policy); Goal parameter MAP greater than 65 mmHg. ordered. ph 13:23 Phenylephrine IV 0.5 mcg/kg/min IV at calculated rate See Administration ph Instructions; (Standard concentration 50 mg / 250 mL D5W); Recommended max rate 5 mcg/kg/min; Titrate 0.1 mcg/kg/min as often as every 5 minutes to achieve goal (see titration policy); Goal parameter MAP greater than 65 mmHg. ordered. ph
[2022-09-04 01:19] LABS: Anisocytosis 1+; Blood Morphology Comment NOTED (NOT SEEN); Burr Cells 1+; Ovalocytes 1+; Platelet Estimate DECR; Target Cells 1+; Teardrop Cell 1+
[2022-09-04] MEDS ORDERED: MAGNESIUM SULFATE 1 gm IVPB 1 GM/100 ML BAG IV ONE (01:19)
[2022-09-04] MEDS ORDERED: POTASSIUM 25 MEQ EFFERV TAB ONE (01:19)
--- NOTE | 2022-09-04 01:36 | P.HP ---
Certification for Inpatient Patient admitted to: Inpatient With expected LOS: >2 Midnights Patient will require the following post-hospital care: None Practitioner: I am a practitioner with admitting privileges, knowledge of patient current condition, hospital course, and medical plan of care. Services: Services provided to patient in accordance with Admission requirements found in Title 42 Section 412.3 of the Code of Federal Regulations Patient History Date of Service: 09/04/22 History of Present Illness: 77-year-old female with history of pancreatic cancer on chemotherapy, atrial fibrillation on chronic anticoagulation therapy, chronic diastolic congestive heart failure presents to the emergency department for nausea/vomiting, progressive dyspnea. He was admitted to the hospital on 08/23/2022 for A-fib RVR and subsequently underwent MOE guided cardioversion. She was successfully converted to sinus rhythm and discharged home, her dose of metoprolol was reduced as her blood pressure was running low. She has been on amiodarone, metoprolol, torsemide at home. She feels like she went back into A-fib a few days ago, has been having progressive dyspnea since then. She does take Xarelto at home. Upon arrival to the emergency department patient was in A-fib with RVR rate 130-150 blood pressure soft between 90 and 100 systolic, she was placed on amiodarone drip after discussion with cardiology by ED staff. Her labs were significant for aplastic anemia WBC 0.9 RBC 3.66 hemoglobin 11.9 hematocrit 35.5 likely count 76 INR 4.31 PT 47.4 potassium 2.8 creatinine 1.85 GFR 28 T. bili 1.9 T. bili 0.5 AST 61 alk phos 119 high-sensitivity troponin 85.1 BNP 1705 chest x-ray showed clear lungs. Will admit for further valuation and management of A-fib RVR, acute on chronic diastolic congestive heart failure. Allergies No Known Allergies Allergy (Verified 05/18/22 15:34) Home Medications: Rivaroxaban [Xarelto] 1 tab PO DAILY AT SUPPER 05/23/22 Torsemide [Demadex*] 20 mg PO DAILY 08/22/22 Amiodarone HCl [Cordarone*] 200 mg PO BID #60 tab 08/24/22 Metoprolol Tartrate [Lopressor*] 25 mg PO BID 6AM 6PM #60 tab 08/24/22 - Past Medical/Surgical History Diabetic: No -: Pancreatic cancer -: Atrial fibrillation -: Hypertension -: Nicotine dependence -: CHF -: port Psychosocial/ Personal History: Lives at home with family - Family History Family History: Reviewed- Non-Contributory - Social History Alcohol use: No CD- Drugs: No Caffeine use: Yes Place of Residence: Home Review of Systems 10-point ROS is otherwise unremarkable Respiratory: Shortness of Breath Cardiovascular: Palpitations Gastrointestinal: Nausea, Vomiting Physical Examination - Physical Exam General: Alert, In no apparent distress, Oriented x3 HEENT: Atraumatic, PERRLA, Mucous membr. moist/pink, EOMI, Sclerae nonicteric Neck: Supple, 2+ carotid pulse no bruit, No LAD, Without JVD or thyroid abnormality Respiratory: Clear to auscultation bilaterally, Normal air movement Cardiovascular: Regular rate/rhythm, Normal S1 S2, Edema (3+ pitting ARJUN LE) Capillary refill: <2 Seconds Gastrointestinal: Normal bowel sounds, No tenderness Musculoskeletal: No tenderness Integumentary: No rashes Neurological: Normal speech, Normal strength at 5/5 x4 extr, Normal tone, Normal affect Lymphatics: No axilla or inguinal lymphadenopathy - Studies Laboratory Data (last 24 hrs) 09/04/22 00:10: PT 47.4 H, INR 4.31 09/04/22 00:10: WBC 0.90 L*, Hgb 11.9 L, Hct 35.5 L, Plt Count 76 L 09/04/22 00:10: Sodium 135 L, Potassium 2.8 L, BUN 30 H, Creatinine 1.85 H, Glucose 131 H, Magnesium 1.9, Total Bilirubin 1.9 H, AST 61 H, ALT 41, Alkaline Phosphatase 119 H 09/03/22 23:30: Total Bilirubin Cancelled, AST Cancelled, ALT Cancelled, Alkaline Phosphatase Cancelled 09/03/22 22:58: PT Cancelled, INR Cancelled 09/03/22 22:58: WBC Cancelled, Hgb Cancelled, Hct Cancelled, Plt Count Cancelled 09/03/22 22:58: Sodium Cancelled, Potassium Cancelled, BUN Cancelled, Creatinine Cancelled, Glucose Cancelled, Magnesium Cancelled Assessment and Plan - Plan Assessment: Atrial fibrillation with rapid ventricular response Acute on chronic diastolic congestive heart failure 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 Continue IV amiodarone, electrolytes replaced. Cardiology consult in place. Acute on chronic diastolic congestive heart failure 3+ pitting edema lower extremities, was on torsemide at home. She was prescribed metolazone but had not been taking it because her blood pressure was running low. We will need to gently diurese given soft blood pressures. Appreciate further input from cardiology. 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 Monitor CBC daily Pancreatic cancer On chemo, continue OP mgmt Hypokalemia Replaced, monitor daily Acute kidney injury Likely CRS, treat AF/CHF and monitor, nephrology consult as needed. DVT PPX: SCDs given thrombocytopenia, elevated INR Code status:full Discharge Plan: Home Plan to discharge in: 72 Hours - Advance Directives Does patient have a Living Will: No Does patient have a Durable POA for Healthcare: No - Code Status/Comfort Care Code Status Assessed: Yes (Full code) Critical Care: No Time Spent Managing Pts Care (In Minutes): 70
[2022-09-04 01:58] LABS: SARS-CoV-2 Antigen Rapid Res Negative (Negative)
[2022-09-04] MEDS ORDERED: ONDANSETRON 4 MG/2 ML VIAL IV PRN (02:33)
[2022-09-04] MEDS ORDERED: AMIODARONE HCL 900 MG in Dextrose 5%-Water 482 ML IV SCH (02:33)
[2022-09-04] MEDS ORDERED: KCL 20 MEQ/100 mL IVPB 200 ML IV ONE (02:46)
[2022-09-04] MEDS ORDERED: NA CHLORIDE 0.9% 250 ML ONE ×3 (02:46→17:41)
[2022-09-04 03:51] VITALS: BMI 27.4
[2022-09-04] MEDS ORDERED: NA CHLORIDE 0.9% 0 ML ONE (05:00)
[2022-09-04] MEDS ORDERED: AMIODARONE IN DEXTROSE,ISO-OSM 360 MG/200 ML BAG IV ONE (05:40)
[2022-09-04] MEDS ORDERED: ONDANSETRON 4 MG/2 ML VIAL ONE (08:45)
[2022-09-04] MEDS: FUROSEMIDE 40 MG/4 ML VIAL IV SCH ×2 (09:00→17:00)
[2022-09-04] MEDS ORDERED: FUROSEMIDE 40 MG/4 ML VIAL ONE (09:21)
[2022-09-04] MEDS ORDERED: NA CHLORIDE 0.9% 250 ML IV ONE ×2 (12:50→23:43)
[2022-09-04] MEDS ORDERED: DIGOXIN 0.25 MG/ML AMP ONE (13:04)
[2022-09-04] MEDS ORDERED: DIGOXIN 0.25 MG/ML AMP IV ONE (13:05)
--- NOTE | 2022-09-04 13:05 | CON ---
Date of Consultation: 09/04/2022 Reason For Consultation: Atrial fibrillation with rapid ventricular response. History Of Present Illness: A 77-year-old female with history of advanced pancreatic cancer, on chem otherapy. Has atrial fibrillation, diastolic heart failure, presented to the emergency room with [place], vomiting, and shortness of breath along with palpitations, found to be in atrial fibrillation wi th rapid ventricular response. Started on amiodarone drip and she apparently is still in atrial fibr illation, heart rate in the low 120s. Past Medical History: As outlined above in the HPI. Medications: Refer to reconciliation sheet for detailed list. Allergies: NO KNOWN DRUG ALLERGIES. Family History: No premature coronary artery disease or cancer. Social History: She does not smoke or drink. Does not use any drugs. Review of Systems: All systems reviewed and they were negative except what mentioned in HPI. Physical Examination: Vital Signs: Reviewed. Head and Neck: Pupils are equal, reactive to light. Intact eye movements. No JVD. No cervical lym phadenopathy. Neck is supple. Thyroid is not enlarged. Lungs: Clear to auscultation bilaterally. No rhonchi, wheezing, or crackles. No accessory muscle u se. Heart: Irregularly irregular. No extra sounds. Abdomen: Soft, nontender. Bowel sounds positive. No organomegaly. No masses or hernia. No rigidi ty or rebound. Extremities: No clubbing or cyanosis. Intact pulses. Skin: No rash. Neurologic: Alert, awake, oriented x3. No acute focal deficits appreciated. Lymph Nodes: No cervical or axillary lymphadenopathy. Investigations: Labs were reviewed. Assessment And Recommendations: 1.Acute on chronic diastolic heart failure exacerbation. Agree with diuresis; however, creatinine i s slightly up. Get Nephrology on board. 2.Atrial fibrillation, on amiodarone load. Plan for cardioversion procedure by tomorrow morning if she does not convert to sinus rhythm and continue anticoagulant. 3.Pancreatic cancer, advanced, on chemotherapy. SR/MODL Voice ID: [id number] Report ID: [id number]
--- NOTE | 2022-09-04 15:02 | RAD REPORT ---
EXAM DESCRIPTION: XR CHEST 1 VIEW CLINICAL HISTORY: NAUSEA, VOMITING COMPARISON: None. TECHNIQUE: XR CHEST 1 VIEW 09/04/2022 12:00 AM CDT FINDINGS: The heart is enlarged. Lungs are clear without consolidation, atelectasis, mass or edema. There is no pleural effusion. There is no pneumothorax. There are no acute osseous findings. Right ch est port catheter tip is in the mid SVC. IMPRESSION: Clear lungs. Electronically signed by: Tacos Aviles MD 09/04/2022 12:32 AM CDT Due to temporary technical issues with the PACS/Fluency reporting system, reports are being signed by the in house radiologists without review as a courtesy to insure prompt reporting. The interpreting radiologist is fully responsible for the content of the report.
[2022-09-04] MEDS ORDERED: ALBUMIN HUMAN 25% 100 ML IV ONE (19:53)
[2022-09-04] MEDS ORDERED: NA CHLORIDE 0.9% 100 ML ONE (20:28)
[2022-09-04] MEDS ORDERED: ALBUMIN HUMAN 25% 50 ML IV ONE (20:28)
[2022-09-04] MEDS ORDERED: ACETAMINOPHEN 500 MG TAB PO ONE (22:22)
[2022-09-04] MEDS ORDERED: ACETAMINOPHEN 500 MG TAB ONE (22:27)
[2022-09-05] MEDS ORDERED: IPRATROPIUM BROM 0.5MG/2.5ML NEB ONE (01:19)
[2022-09-05] MEDS ORDERED: FUROSEMIDE 40 MG/4 ML VIAL ONE (02:19)
--- NOTE | 2022-09-05 03:28 | P.PN ---
Date of Service: 09/05/22 Patient remains in afib RVR despite > 24 hours of amiodarone drip. BP has been borderline low, ranging from 80s-100s systolic/40s-60s diastolic. Albumin mildly improved BP. Patient becoming more short of breath this morning, with diffuse crackles on auscultation and 3+ pitting edema on bilateral shins. She also had a temperature of 99.8F earlier this evening which improved with tylenol. Repeat chest xray and ABG ordered as patient has gotten more tachypneic and hypoxic despite increasing O2 up to 4L NC and atrovent breathing treatment. ABG with pH 7.3, pCO2 33, pO2 63, bicarb 16. Chest xray showed "Interval development of peripheral opacity within the left upper lobe is present. The lungs are hyperinflated with mild diffuse interstitial opacities" (previous demonstrated clear lungs). She received 40 mg IV lasix, which was originally held given her BP. Will obtain blood cultures, lactate and start patient on bipap and antib iotics.
[2022-09-05 03:35] LABS: Arterial Blood Carboxyhemoglob 1.1 % (0-1.5); Blood Gas Oxyhemoglobin 84.7 % (94-97); Blood O2 Saturation 86.6 % (92-98.5)
[2022-09-05] MEDS ORDERED: VANCOMYCIN 1 GM in NA CHLORIDE 0.9% 250 ML IVPB SCH (03:37)
[2022-09-05] MEDS ORDERED: VANCOMYCIN 1.75 GM in NA CHLORIDE 0.9% 500 ML IVPB ONE (04:00)
[2022-09-05] MEDS ORDERED: VANCOMYCIN 500 MG/VIAL ONE (04:15)
[2022-09-05] MEDS ORDERED: VANCOMYCIN 1 GM/VIAL ONE (04:15)
[2022-09-05] MEDS ORDERED: NA CHLORIDE 0.9% 500 ML ONE ×2 (04:15→07:21)
[2022-09-05 04:27] LABS: Absolute Lymphocytes (CBC) 0.5 K/uL (0.7-4.9); Hematocrit 29.2 % (36.0-45.0); Lymphocytes % 31.9 % (15.3-44.8); MCV 99.1 fL (80-100); MPV 11.4 fL (7.6-11.3); RBC Red Blood Cell Count 2.95 M/uL (3.86-4.86)
[2022-09-05 04:30] LABS: Albumin 1.9 g/dL (3.4-5.0); Bilirubin Total 1.9 mg/dL (0.2-1.0); Potassium 3.3 mEq/L (3.5-5.1); Protein, Total 3.8 g/dL (6.4-8.2); Thyroid Stimulating Hormone 1.97 uIU/mL (0.358-3.740)
[2022-09-05] MEDS ORDERED: NA CHLORIDE 0.9% 250 ML ONE (04:39)
[2022-09-05] MEDS ORDERED: SODIUM BICARB 50 MEQ/50ML VIAL ONE ×2 (05:36→13:38)
--- NOTE | 2022-09-05 06:48 | P.PN ---
Subjective Date of Service: 09/04/22 Patient states she is feeling better. Blood pressure currently is 120s/70s. She had transient episodes of hypotension. She is chronically ill with pancreatic cancer with metastasis. She is on chemotherapy. She has significant leukopenia. She is also thrombocytopenic. Her long-term prognosis is very po or. Will discuss with family regarding code status. Review of Systems 10-point ROS is otherwise unremarkable Physical Examination - Vital Signs Temperature: 97.9 F Blood Pressure: 91/52 Pulse: 122 Respirations: 20 Pulse Ox (%): 95 - Physical Exam General: Alert, In no apparent distress, Oriented x3 Respiratory: Clear to auscultation bilaterally, Normal air movement Cardiovascular: Regular rate/rhythm, Normal S1 S2, Systolic murmur Gastrointestinal: Normal bowel sounds, Soft and benign, Non-distended, No tenderness Musculoskeletal: No clubbing, No swelling, No tenderness Neurological: Sensation intact, Cranial nerves 3-12 intact - Studies Medications List Reviewed: Yes Assessment & Plan - Problems (Diagnosis) (1) Supratherapeutic INR Current Visit: Yes Status: Acute (2) Leukopenia Current Visit: Yes Status: Acute (3) Pancreas cancer Current Visit: No Status: Acute Qualifiers: Pancreatic malignancy location: body of pancreas Qualified Code(s): C25.1 - Malignant neoplasm of body of pancreas (4) Atrial fibrillation, rapid Current Visit: No Status: Chronic (5) Thrombocytopenia Current Visit: Yes Status: Acute (6) LISA (acute kidney injury) Current Visit: Yes Status: Acute - Plan Plan: 1. Amiodarone drip 2. Cardioversion per cardiology 3. Beta-chris therapy 4. Xarelto 5. IVFs 6. Monitor INR 7. Monitor renal function 8. GI prophylaxis - Advance Directives Does patient have a Living Will: No Does patient have a Durable POA for Healthcare: No
[2022-09-05] MEDS ORDERED: FENTANYL CITR 100 MCG/2 ML ONE ×3 (07:18→12:37)
[2022-09-05] MEDS ORDERED: MAGNESIUM SULFATE 1 gm IVPB 1 GM/100 ML BAG IV ONE (07:23)
[2022-09-05] MEDS ORDERED: FENTANYL CITR 100 MCG/2 ML IV ONE ×4 (07:25→12:36)
[2022-09-05] MEDS: NOREPINEPHRINE BITARTRATE/D5W 4 MG/250 ML BAG IV SCH ×2 (07:40→15:06)
[2022-09-05] MEDS ORDERED: NOREPINEPHRINE BITARTRATE/D5W 4 MG/250 ML BAG IV ONE ×3 (07:40→13:04)
[2022-09-05] MEDS ORDERED: D5W 1,000 ML with NA BICARB 8.4% 150 MEQ IV SCH ×2 (08:00)
[2022-09-05 08:06] VITALS: O2SAT 94
[2022-09-05] MEDS ORDERED: CEFEPIME 1 GM in NA CHLORIDE 0.9% 100 ML IV SCH (09:00)
[2022-09-05] MEDS ORDERED: CEFEPIME 1 GM/VIAL ONE (09:45)
[2022-09-05] MEDS ORDERED: NA CHLORIDE 0.9% 100 ML ONE (09:45)
[2022-09-05] MEDS ORDERED: SUCCINYLCHOLINE 20 MG/ML (10 ML) IV SCH (10:45)
[2022-09-05] MEDS ORDERED: ETOMIDATE 20 MG/10 ML VIAL IV STA (10:45)
[2022-09-05] MEDS ORDERED: RSI MEDICATION KIT IV ONE (10:45)
[2022-09-05] MEDS ORDERED: LORazepam 2 MG/ML VIAL ONE (10:45)
[2022-09-05] MEDS ORDERED: FENTANYL/NS PCA 500 MCG/50 ML SYR IV PRN (11:30)
--- NOTE | 2022-09-05 12:02 | RAD REPORT ---
EXAM DESCRIPTION: [place] Single View09/05/2022 11:43 am CLINICAL HISTORY: ET tube placement/PICC line placement COMPARISON: Chest Single View dated 09/05/2022; Chest Single View dated 09/04/2022; Chest Single View dated 08/21/2022; Chest Single View dated 05/23/2022 TECHNIQUE: Portable AP view of the chest. FINDINGS: Progressive patchy bilateral airspace opacities, possibly with small pleural effusions, fi ndings which could reflect pulmonary edema with or without superimposed pneumonia. Endotracheal tube terminates 5 centimeter above the jessica. Right chest wall port is unchanged in position. A right arm PICC has been placed with its tip projecting over the distal SVC. No pneumothorax or effusion. Stabl e cardiomegaly. The mediastinal contours are unremarkable. IMPRESSION: Progressive patchy bilateral airspace opacities with small effusions. Findings may refle ct pulmonary edema with or without superimposed pneumonia. Life support devices as above.
[2022-09-05] MEDS ORDERED: NA CHLORIDE 0.9% 500 ML IV ONE (12:08)
[2022-09-05] MEDS ORDERED: D5W 250 ML IV ONE (12:13)
[2022-09-05] MEDS ORDERED: Phenylephrine HCl 10 MG/ML 1 ML VIAL ONE ×2 (12:13→12:14)
[2022-09-05 12:49] LABS: Potassium 3.9 mEq/L (3.5-5.1)
[2022-09-05 12:50] LABS: Albumin 1.7 g/dL (3.4-5.0); Bilirubin Total 1.8 mg/dL (0.2-1.0); Magnesium 2.4; Phosphorus 8.2 mg/dL (2.5-4.9); Protein, Total 3.8 g/dL (6.4-8.2)
[2022-09-05] MEDS ORDERED: CALCIUM GLUCONATE 1 GM IVPB 1 GM/50 ML BAG IV ONE ×2 (13:15→15:00)
[2022-09-05] MEDS ORDERED: DOPAMINE/D5W 400 MG/250 ML BAG IV ONE (13:23)
[2022-09-05] MEDS ORDERED: DOPAMINE/D5W 400 MG/250 ML BAG IV SCH (13:30)
[2022-09-05] MEDS ORDERED: D5W 1,000 ML IV ONE (13:38)
[2022-09-05] MEDS ORDERED: ALBUMIN HUMAN 25% 100 ML IV ONE ×2 (14:00→18:00)
[2022-09-05 15:14] VITALS: TEMP 97.9
[2022-09-05 17:05] VITALS: BP 51/33
--- NOTE | 2022-09-05 17:53 | PN ---
Date of Progress Note: 09/05/2022 Subjective: This patient had a significant change in status. She became severely hypotensive and he r heart rate went up to 150 to 160. We did cardioversion twice, however, did not respond and she was diagnosed with a septic shock, placed on 3 pressors and admitted to ICU and now she is intubated and currently she is DNR. Review of Systems: Patient, at the present time, sedated. She is sedated on a ventilator. Blood pressure is very low d espite being on 3 pressors. Physical Examination: Vital Signs: Reviewed. Head and Neck: Pupils are dilated, dull. Neck is supple. Thyroid is not enlarged. Lungs: Bilateral air entry is normal. No rhonchi or crackles. Heart: Irregularly irregular. No extra sounds. Abdomen: Soft, nontender. Bowel sounds positive. Extremities: No clubbing or cyanosis. Intact pulses. Skin: No rash. Neurological: She is sedated on the ventilator. Lymph Nodes: No cervical or axillary lymphadenopathy. Investigations: Procalcitonin was 22 and creatinine is 3.4. Assessment And Recommendation: 1.Septic shock, on pressors and on wide spectrum antibiotics. Very poor prognosis. Procalcitonin l evel is very high. Prognosis is guarded and the patient is a DNR at this point due to advanced metas tatic pancreatic cancer. 2.Atrial fibrillation. I had difficulty controlling the heart rate or converting her to sinus rhyth m due to the sepsis and septic shock. At this point, this is secondary issue and her main problem is the advanced septic shock. I had a long discussion with the family. They understand and the patient's prognosis is very poor and likely she will not make it thr oughout the night. SR/MODL Voice ID: [id number] Report ID: [id number]
[2022-09-05] MEDS ORDERED: PHENYLEPHRINE HCL IV SCH (18:00)
[2022-09-05] MEDS ORDERED: WATER IV SCH (18:00)
[2022-09-05] MEDS ORDERED: DEXTROSE 5% IV SCH (18:00)
[2022-09-05] MEDS ORDERED: SUCCINYLCHOLINE 20 MG/ML (10 ML) IV ONE (18:01)
[2022-09-05] MEDS ORDERED: ETOMIDATE 20 MG/10 ML VIAL IV ONE (18:02)
[2022-09-05 18:25] LABS: Absolute Lymphocytes (CBC) 0.6 K/uL (0.7-4.9); Hematocrit 32.5 % (36.0-45.0); Lymphocytes % 32.2 % (15.3-44.8); MCV 101.4 fL (80-100); RBC Red Blood Cell Count 3.21 M/uL (3.86-4.86)
--- NOTE | 2022-09-05 18:30 | RAD REPORT ---
EXAM DESCRIPTION: RAD - Chest Single View - 09/05/2022 3:02 am CLINICAL HISTORY: The patient is 77 years old and is Female; shob, tachypnea TECHNIQUE: Frontal view of the chest. COMPARISON: Chest radiograph September 04, 2022 FINDINGS: LUNGS: Interval development of peripheral opacity within the left upper lobe is present. The lungs are hyperinflated with mild diffuse interstitial opacities. PLEURAL SPACE: Unremarkable. No pneumothorax. HEART: The cardiac silhouette is enlarged. MEDIASTINUM: Unremarkable. BONES/JOINTS: Unremarkable. TUBES, LINES AND DEVICES: A right chest port is present with the tip at the SVC/RA junction. UPPER ABDOMEN: Unremarkable as visualized. IMPRESSION: Findings suggest interval development of left upper lobe pneumonia. Electronically signed by: Kalli Dave MD 09/05/2022 3:25 AM CDT Due to temporary technical issues with the PACS/Fluency reporting system, reports are being signed by the in house radiologists without review as a courtesy to insure prompt reporting. The interpreting radiologist is fully responsible for the content of the report.
--- NOTE | 2022-09-05 18:35 | P.INFCA ---
Sepsis Focused Assessment - Focused Assessment Complete? Sepsis Focused Assessment Completed?: Yes - Sepsis Screen Result Severe Sepsis: Positive Septic Shock: Positive - Evaluation Current stage of sepsis: Septic shock - Vital Signs Reviewed: Yes Heart rate: 88 Blood Pressure: 51/33 Respiratory Rate: 27 O2 Sat by Pulse Oximetry: 64 - Examination Date exam was performed: 09/05/22 Time exam was performed: 05:55 Heart: Irregularly irregular Lungs: Crackles Peripheral pulses: 1+ Faint Peripheral pulse location: Radial Capillary refill: <2 Seconds Skin examination: Pale Comments: sepsis reassessment complete
[2022-09-05] MEDS ORDERED: MUPIROCIN 2% OINT 22GM TUBE TOP SCH (21:00)
--- NOTE | 2022-09-06 17:29 | EKG ---
Test Date: 2022-09-03 Test Time: 23:12:34 Verification Rep: DONALDO MEASUREMENT RESULTS: Intervals: Rate: 143 TN: QRSD: 100 QT: 332 QTc: 512 [place]: P: TN: QRS: -67 T: 110 INTERPRETIVE STATEMENTS: Atrial flutter with variable AV block Left anterior fascicular block Septal infarct, age undetermined Abnormal ECG Compared to ECG 08/23/2022 14:38:08 Sinus bradycardia no longer present Myocardial infarct finding still present Electronically Signed On 09-06-22 17:23:24 CDT by Raudel Whitlock
[2022-09-06] MEDS ORDERED: VANCOMYCIN 1.25 GM in NA CHLORIDE 0.9% 250 ML IVPB SCH (18:00)
== END 2022-09-05 19:10 | disposition expired | DRG 871 ==
LOC: ER 22:24 → ERHOLD 09-04 01:15 → 3RD-ICU 09-05 04:37 → ERHOLD 09-05 05:26 → 3RD-ICU 09-05 13:28
PROVIDERS: ADMIT Hospitalist; ATTEND Hospitalist
PROC: 5A2204Z Restoration of Cardiac Rhythm, Single (ICD-10-PCS; 2022-09-04)
PROC: 5A1935Z Respiratory Ventilation, Less than 24 Consecutive Hours (ICD-10-PCS; principal; 2022-09-05)
PROC: 0BH17EZ Insertion of Endotracheal Airway into Trachea, Via Natural or Artificial Opening (ICD-10-PCS; 2022-09-05)
PROC: 02HV33Z Insertion of Infusion Device into Superior Vena Cava, Percutaneous Approach (ICD-10-PCS; 2022-09-05)
DX: A41.9 Sepsis, unspecified organism (principal); D61.1 Drug-induced aplastic anemia; I50.33 Acute on chronic diastolic (congestive) heart failure; R65.21 Severe sepsis with septic shock; N17.9 Acute kidney failure, unspecified; C25.1 Malignant neoplasm of body of pancreas; I48.91 Unspecified atrial fibrillation; I11.0 Hypertensive heart disease with heart failure; E87.6 Hypokalemia; D69.6 Thrombocytopenia, unspecified; D72.819 Decreased white blood cell count, unspecified; F17.210 Nicotine dependence, cigarettes, uncomplicated; T45.1X5A Adverse effect of antineoplastic and immunosuppressive drugs, initial encounter; Z66 Do not resuscitate; Z79.01 Long term (current) use of anticoagulants; Z92.21 Personal history of antineoplastic chemotherapy; Z79.899 Other long term (current) drug therapy; Z20.822 Contact with and (suspected) exposure to COVID-19
CPT/HCPCS: 31500; 36415; 36569; 71045; 80048; 80053; 80076; 82805; 83605; 83735; 83880; 84100; 84145; 84439; 84443; 84484; 85025; 85610; 87040; 87077; 87186; 87205; 87811; 93005; 94002; 94003; 94660; 94760; 99285; J0282; J0610; J0692; J1160; J1265; J1940; J2370; J2405; J2550; J3010; J3475; J3480; J7040; J7050; J7060; J7644; P9047